=== PATIENT | male | born 1960 | race Caucasian/White ===

== ENCOUNTER → 2019-02-09 08:45 | Outpatient (CLI) | payer MEDICAID, SELFPAY ==
--- NOTE | 2019-02-09 08:47 | CA_ITS ---
APPROVED REPORT EXAM: Limited 2D and color flow Echocardiogram [place] Surfacer: Zaira Johnson RDCS Ht: 5 ft 6 in Wt: 221lbs BSA: 2.09 BP: 102/68 mmHg Indications: EDEMA SEVERE COPD SOA ETOH ABUSE HTN M-Mode Dimensions RVDd 2.10 cm (0.9-2.6) LVDd 5.60 cm (3.5-5.7) LVDs 4.50 cm (3.5-5.7) IVSd 0.70 cm (0.6-1.1) PWd 0.80 cm (0.6-1.1) EF (Teich) 40.00% FS 19.60% EDV (Teich) 154.00 mL ESV (Teich) 92.40 mL Left Ventricle Left atrium is mildly enlarged, left ventricle is normal size, mild concentric left ventricular hypertrophy, visually estimated ejection fraction 55% with no regional wall motion abnormality. Right Ventricle Right-sided chambers are not well visualized. Aortic Valve Aortic valve is poorly visualized. Mitral Valve Mitral valve is minimally thickened, there is no mitral stenosis, there is mild mitral regurgitation. Tricuspid Valve Tricuspid valve is poorly visualized. There is mild tricuspid regurgitation. Pulmonic Valve Pulmonic valve is poorly visualized. Great Vessels Aortic root is normal size. Pericardium No significant pericardial effusion noted. Conclusion 1. Technically difficult and limited study performed. 2. Normal left ventricular systolic function, visually estimated ejection fraction 55% with no regional wall motion abnormality, diastolic parameters are inconclusive. 3. Mild mitral and tricuspid regurgitation 4. No significant pericardial effusion noted. Electronically signed by : Lonny Messina, 02/12/2019 16:36:44
== END ==
PROVIDERS: PCP Emergency Medicine; Visit Provider Emergency Medicine
DX: R60.9 Edema, unspecified (principal); I50.9 Heart failure, unspecified
CPT/HCPCS: 93308

== ENCOUNTER → 2019-02-22 14:01 | Outpatient (CLI) | payer MEDICAID, SELFPAY ==
[2019-02-22 16:42] LABS: Basophils # 0.1 K/mm3 (0-0.2); Basophils % 0.6 % (0.1-2.0); Eosinophils % 0.1 % (0.1-12.0); Hematocrit 39.1 % (42.0-52.0); Lymphocytes # 1.4 K/mm3 (0.7-4.5); Lymphocytes % 11.5 % (10-50); Mean Corpuscular HGB Conc 30.7 g/dL (31.8-35.4); Mean Corpuscular Hemoglobin 27.8 pg (27.0-31.2); Mean Corpuscular Volume 90.6 fl (80-94); Mean Platelet Volume 7.6 fl (7.4-10.4); Monocytes # 0.9 K/mm3 (0.1-1.0); Monocytes % 7.1 % (1.7-9.3); Neutrophils # 9.8 K/mm3 (1.8-7.8); Neutrophils % 80.8 % (37.0-80.0); Platelet Count 659 K/mm3 (142-424); Red Blood Count 4.31 M/mm3 (4.60-6.20); White Blood Count 12.2 K/mm3 (4.8-10.8)
[2019-02-22 16:47] LABS: Anion Gap 11.9 mEq/L (5-15); Blood Urea Nitrogen 18 mg/dL (7-18); Carbon Dioxide 31 mmol/L (21.0-32.0); Chloride 94 mmol/L (98-107); Creatinine,Serum 0.88 mg/dL (0.70-1.30); Estimated Glomerular Filt Rate 88 ml/min (>60); GFR (African American) 107 ML/MIN (>60); Glucose 138 mg/dL (74-106); Potassium 4.9 mmoL/L (3.5-5.1); Sodium 132 mmol/L (136-145)
== END ==
PROVIDERS: Visit Provider Nurse Practitioner Family
DX: E78.5 Hyperlipidemia, unspecified (principal); I10 Essential (primary) hypertension; F10.10 Alcohol abuse, uncomplicated; I27.20 Pulmonary hypertension, unspecified; I50.33 Acute on chronic diastolic (congestive) heart failure; I50.9 Heart failure, unspecified; I51.9 Heart disease, unspecified; R01.1 Cardiac murmur, unspecified; R06.00 Dyspnea, unspecified; R07.9 Chest pain, unspecified; R60.9 Edema, unspecified; R93.1 Abnormal findings on diagnostic imaging of heart and coronary circulation
CPT/HCPCS: 36415; 80048; 83880; 85025

== ENCOUNTER 2019-03-18 11:00 | Outpatient (RCR) | payer MEDICAID, SELFPAY ==
--- NOTE | 2019-02-09 08:34 | HMH.PTOPWND ---
Rehab Outpt Wound Evaluation Rehab OP Wound Evaluation Start: 02/09/19 08:01 Freq: Status: Active Protocol: Document 02/09/19 08:28 VALE (Rec: 02/09/19 08:34 PHORNE [id number]) Electronically Signed By Samson Holloway, PT 02/09/19 08:28 Subjective/History History History Pt is 59 yowm who presents with several yr hx of B LE edema, gradually increasing and worse in the right LE. He reports no pain at rest, only tenderness to palpation in B gaitor area. He does report some numbness/tingling in the legs at times. He has difficulty ambulating due to COPD and emphysema and was recently diagnosed with CHF. He reports further hx of anxiety, HTN, HL, and APPY. He reports having an appt with cardiology today also. Lymphedema Eval Classification of Lymphedema Secondary Lymphedema Yes Stemmer's sign Stemmer's Sign yes Stage of Lymphedema Lymphedema stages Stage I (Pitting edema, reduces w/ elevation, no fibrosis) Skin Changes Dry Skin Yes Taut, Shiny Skin Yes Hyperkeratosis Yes Redness Yes Brittle Uneven Nails Yes Discoloration of Skin Yes Other Changes Yes Pain Scale Pain Scale (0-10) 0 Affected Extremities Areas Affected by Lymphedema/Edema Abdomen,Right Lower Extremity, Left Lower Extremity Manual Lymphatic Drainage Treatment Area MLD Treatment Area Abdomen,Right Lower Extremity, Left Lower Extremity Wound Problems/Impairments Impairments Problems/Impairmments Palpation Tenderness,Impaired Endurance,Impaired Walking, Impaired Household Care, Impaired Recreational Activities,Increased Edema, Lymphedema Present,Subjective C/O Pain,Impaired Self Care/ Self Management Prognosis Rehab Potential Fair Clinical Impression Consistent with Diagnosis Yes Short Term Goals Number of Weeks 4 Decreased Palpation Tenderness Yes: to min Patient to Understand Lymphedema Yes Treatment and Exercises
--- NOTE | 2019-03-03 08:24 | HMH.RHREAS ---
Rehab Reassessment Rehab OP Re-assessment Start: 03/03/19 08:18 Freq: Status: Active Protocol: Document 03/03/19 08:18 VALE (Rec: 03/03/19 08:23 VALE [id number]) Electronically Signed By Samson Holloway, PT 03/03/19 08:18 Rehab Re-assessment Subjective Subjective Pt reports less c/o tenderness in B LE, but continues to have SOA with exertion and now mildly increaased lightheadedness with position changes. Objective Objective Notes Continues with 3+ pitting edema to B LE, Right > Left. Now S/P cardiac cath with no CAD, but CHF and significant pulmonary HTN. Assessment Progress Assessment Progressing as Expected Assessment Notes Pt treatment was held until cleared by cardiology due to CHF. Now S/P heart cath with clearance for edema control to B LE. Patient goals met none Goals Not Met ST,2,3 LT,2,3,4,5 Revised Goals none Plan Plan Continue per initial POC Frequency of Therapy 2x/wk Duration of therapy 8 wks Time and Billing Re-Eval Time 15 Re-Eval Billing Units 1 PHYSICIAN CERTIFICATION: I certify the specified therapy services for Tejas Agustinravindrasukhdev PATRICK are required, authorized, and reviewed every 30 days.
== END 2019-03-18 11:05 | disposition home or self-care (01) ==
LOC: PT 11:00
PROVIDERS: Visit Provider Emergency Medicine
DX: R60.0 Localized edema (principal)
CPT/HCPCS: 97140; 97163; 97164

== ENCOUNTER 2019-03-22 12:35 | Inpatient (IN) ==
--- NOTE | 2019-03-22 13:22 | Emergency Department Note ---
ED Disposition Clinical Impression: Pneumonia Disposition: Admitted as Observation Condition on Discharge: Fair Time of Disposition: 16:09 - Critical Care Critical Care Time: No Attestation: On 03/22/19, the high probability of a clinically significant, sudden or life threatening deterioration of the following system(s) required my full and direct attention, intervention and personal management. The time I documented below is in addition to time spent performing reported procedures but includes the following listed in this critical care notation. Medical Decision Making - Medical Records Medical records reviewed: Yes: I reviewed the patient's medical records. - Shola Inquiry Pt receiving controlled substance: No Shola was queried for this patient: No Vital Signs: 03/22/19 12:55 03/22/19 13:29 03/22/19 13:36 Temperature 98.5 F Temperature Source Oral Pulse Rate 93 H Pulse Rate [Left Radial] 79 85 Respiratory Rate 24 Blood Pressure [Right Arm] 132/60 129/68 Blood Pressure Mean [Right Arm] 84 88 Blood Pressure Source [Right Arm] Automatic Cuff Automatic Cuff Blood Pressure Position [Right Arm] Sitting Sitting 02 Sat by Pulse Oximetry 94 L 97 Oxygen Delivery Method Nasal Cannula Room Air Oxygen Flow Rate (LPM) 3 03/22/19 13:39 Temperature Temperature Source Pulse Rate Pulse Rate [Left Radial] 86 Respiratory Rate Blood Pressure [Right Arm] 129/68 Blood Pressure Mean [Right Arm] 88 Blood Pressure Source [Right Arm] Automatic Cuff Blood Pressure Position [Right Arm] Sitting 02 Sat by Pulse Oximetry 96 Oxygen Delivery Method Room Air Oxygen Flow Rate (LPM) - Lab Data Lab results reviewed: Yes: I reviewed the patient's lab results. Lab Results 03/22/19 13:05: WBC 9.1, RBC 4.63, Hgb 13.0 L, Hct 41.0 L, MCV 88.6, MCH 28.1, MCHC 31.7 L, RDW 14.6, Plt Count 568 H, MPV 7.1 L, Neut % (Auto) 86.9 H, Lymph % (Auto) 8.5 L, [place] % (Auto) 3.9, Eos % (Auto) 0.4, Baso % (Auto) 0.2, Neut # (Auto) 7.9 H, Lymph # (Auto) 0.8, [place] # (Auto) 0.4, Eos # (Auto) 0.0, Baso # (Auto) 0.0, Total Counted 100, Neutrophils % (Manual) 86 H, Lymphocytes % (Manual) 10, Monocytes % (Manual) 4, Platelet Estimate Moderate increase, Hypochromasia 1+ 03/22/19 13:05: Sodium 129 L, Potassium 4.0, Chloride 92 L, Carbon Dioxide 32, Anion Gap 9.0, BUN 21 H, Creatinine 0.98, Estimated Creat Clear 108, Estimated GFR 78, Est GFR ( Amer) 94, Glucose 198 H, Calcium 9.3, Total Bilirubin 0.3, AST 9 L, ALT 41, Alkaline Phosphatase 55, Total Protein 7.3, Albumin 3.7, Globulin 3.6 H, Albumin/Globulin Ratio 1.0 L 03/22/19 13:05: Lactate 2.2 H 03/22/19 13:25: Specimen Source Right radial, O2 % 32, ABG pH 7.44, ABG pCO2 46.3 H, ABG pO2 71.4 L, ABG HCO3 30.7 H, ABG Total CO2 32.2 H, ABG O2 Saturation 94, ABG Base Excess 6.6 H, Kiel Test acceptable Result diagrams: 03/22/19 13:05 03/22/19 13:05 Orders (Tests/Meds): ED MEDICATIONS Generic Name Dose Route Start Last Admin Trade Name Freq PRN Reason Stop Dose Admin Azithromycin 500 mg/ Sodium 250 mls @ 250 mls/hr 03/22/19 16:15 Chloride IV 04/05/19 16:14 Q24H STANISLAV Protocol Ceftriaxone Sodium 2 gm/ 50 mls @ 100 mls/hr 03/22/19 16:15 Sodium Chloride IV 04/05/19 16:14 Q24H STANISLAV Protocol Sodium Chloride 3 ml 03/22/19 14:10 Sodium Chloride 3% 15ml [facility] 04/21/19 14:09 ONCE PRN INDUCE SPUTUM COLLECTION Discontinued Medications Generic Name Dose Route Start Last Admin Trade Name Freq PRN Reason Stop Dose Admin Albuterol/Ipratropium 3 ml 03/22/19 13:01 03/22/19 13:20 Duoneb 3ml [facility] 03/22/19 13:02 3 ml ONCE ONE Administration Methylprednisolone Sodium Succinate 125 mg 03/22/19 13:01 03/22/19 13:10 Solu-Medrol 125mg/2ml Vial IV 03/22/19 13:02 125 mg ONCE ONE Administration ORDERS Category Date Time Status Blood Culture Stat Micro 03/22/19 13:01 Received Sputum Culture & Gram Stain Stat Micro 03/22/19 13:25 Results General Adult HPI - General Chief complaint: Shortness of Breath/Dyspnea Stated complaint: SOA Time Seen by Provider: 03/22/19 13:06 Mode of Arrival: Wheelchair Source of Information: Patient Limitations: No Limitations Description of Symptoms (Recalled from ER Triage Doc. by RN): c/o increased SOA, states that he was dx with PNA but he is having more trouble breathing. - History of Present Illness HPI narrative: diagnosed pneumonia , treate doutpatient . Doing much worse, relates to marked increased shortness of breath - Related Data Home Medications Medication Instructions Recorded Confirmed albuterol sulfate 2.5 mg/3 mL 1.25 mg INHALATION QID PRN 02/03/19 03/22/19 (0.083 %) solution for nebulization fluticasone propionate 220 1 puff INHALATION BID 02/03/19 03/22/19 mcg/actuation HFA aerosol inhaler magnesium 400 mg (as magnesium 400 mg PO DAILY 02/03/19 03/22/19 oxide) capsule mometasone-formoterol HFA 100 2 puff INHALATION BID 02/03/19 03/22/19 mcg-5 mcg/actuation aerosol inhaler montelukast 10 mg tablet 10 mg PO QPM 02/03/19 03/22/19 pravastatin 20 mg tablet 20 mg PO DAILY 02/03/19 03/22/19 tamsulosin 0.4 mg capsule 0.4 mg PO DAILY 02/03/19 03/22/19 spironolactone 50 mg tablet 100 mg PO DAILY tab 02/22/19 03/22/19 torsemide 20 mg tablet 50 mg PO DAILY tab 02/22/19 03/22/19 Buspirone HCl [Buspirone 15 mg 15 mg PO BID 03/18/19 03/22/19 Tablets] Metoprolol Tartrate 50 mg PO BID 03/18/19 03/22/19 dilTIAZem HCl [Cartia Xt] 240 mg PO BID 03/18/19 03/19/19 predniSONE [Prednisone 5mg 5 mg PO DAILY 03/18/19 03/22/19 Tab] Ipratropium/Albuterol Sulfate 3 ml IH Q6H 03/22/19 03/22/19 [Duoneb 3mL neb] Previous Rx's Medication Instructions Recorded albuterol sulfate HFA 90 1 puff INHALATION Q6H PRN #8.5 g 02/22/19 mcg/actuation aerosol inhaler Allergies Allergy/AdvReac Type Severity Reaction Status Date / Time shellfish derived Allergy Mild Verified 03/19/19 09:47 Opioids-Meperidine and Allergy itch Verified 03/19/19 09:47 Related [facility] History - Hepatitis A Screen Drug use history?: No High risk sexual behaviors?: No History of sexually transmitted infection?: No Currently employed?: No Childcare worker?: No Do you have indoor plumbing?: Yes Do you have electricity?: Yes Attestation statement:: This patient has been screened for Hepatitis A risk factors. I have reviewed the patient's past medical history: Yes Medical History: Reports:: Anxiety, Congestive Heart Failure, Chronic Obstr uctive Pulmonary Disease (COPD), Hyperlipidemia, Hypertension Denies:: Cancer, Diabetes Mellitus Type 1, Diabetes Mellitus Type 2, Internal Pacemaker, MRSA, Seizures Laterality Cases: Right: Arthroscopy Shoulder Other Surgeries: Yes: Appendectomy, Cardiac Catheterization. No: Pacemaker Amputation: No Fractures: No Comment: broken rt foot,fingers - Social History Smoking Status: Former smoker #Yrs smoked (if former smoker): 44 Alcohol Intake: current Alcohol Intake Frequency:: 3 or more drinks per day Substance Use Type: denies use Occupational Status: disabled Housing: house Household Members: family - Psychiatric History Pschychiatric History:: Reports:: Anxiety Family Hx:: Asthma, Heart Attack, Hypertension, Coronary Artery Disease, Cancer Comment: Mother- of [id number]@47 ROS Obtained: Yes All systems reviewed & no additional complaints - Constitutional Constitutional: Reports chills - Cardiovascular Cardiovascular: Denies chest pain, Denies chest pain with activity, Reports dyspnea, Reports dyspnea on exertion - Respiratory Respiratory: Yes chest congestion, Yes cough, Yes dyspnea, Yes wheezing - Gastrointestinal Gastrointestingal: Denies: abdominal pain - Musculoskeletal Musculoskeletal: Denies abnormal gait, Denies back pain, Denies limited range of motion - Integumentary/Breasts Skin/Breast: Denies dry skin, Denies redness - Neurologic Neurologic: Reports system reviewed and no additional complaints, except as docu, Denies seizure-like activity, Denies syncope - Hematologic/Lymphatic Henatologic/Lymphatic: Denies easy bleeding Physical Exam - General General appearance: alert, in distress, other (unkempt) - Head Head exam: atraumatic, normocephalic, normal inspection - Eye Eye exam: Present: normal appearance, PERRL, EOMI - ENT ENT exam: Present: normal exam, normal oropharynx, mucous membranes moist, TM's normal bilaterally, normal external ear exam - Neck Neck exam: Present: normal inspection, full ROM, trachea midline. Absent: meningismus, lymphadenopathy - Respiratory Respiratory exam: Present: respiratory distress, wheezes. Absent: normal lung sounds bilaterally - Cardiovascular Cardiovascular exam: Present: regular rate, normal rhythm. Absent: JVD - Abdominal Exam Abdominal exam: Present: soft, normal bowel sounds. Absent: distention, te nderness, guarding - Extremities Exam Extremities exam: Present: normal inspection, full ROM, normal capillary refill. Absent: calf tenderness - Back Exam Back exam: Present: normal inspection. Absent: tenderness - Neurological Exam Neurological exam: Present: alert, oriented X3 - Psychiatric Psychiatric exam: Present: normal affect - Skin Skin exam: Present: warm, dry, intact, normal color - Lymphatic Lymphatic Findings: no adenopathy
[2019-03-22 13:26] LABS: Basophils % 0.2 % (0.1-2.0); Eosinophils % 0.4 % (0.1-12.0); Lymphocytes # 0.8 K/mm3 (0.7-4.5); Lymphocytes % 8.5 % (10-50); Mean Corpuscular HGB Conc 31.7 g/dL (31.8-35.4); Mean Corpuscular Volume 88.6 fl (80-94); Mean Platelet Volume 7.1 fl (7.4-10.4); Monocytes # 0.4 K/mm3 (0.1-1.0); Monocytes % 3.9 % (1.7-9.3); Neutrophils # 7.9 K/mm3 (1.8-7.8); Neutrophils % 86.9 % (37.0-80.0); Platelet Count 568 K/mm3 (142-424); Red Blood Count 4.63 M/mm3 (4.60-6.20); Red Cell Distribution Width 14.6 % (11.5-17.5); White Blood Count 9.1 K/mm3 (4.8-10.8)
[2019-03-22 13:27] LABS: Albumin Level 3.7 gm/dL (3.4-5.0); Bilirubin,Total 0.3 mg/dL (0.2-1.0); Calcium 9.3 mg/dL (8.5-10.1); Globulin 3.6 gm/dl (1.3-3.2); Total Protein,Serum 7.3 gm/dL (6.4-8.2)
[2019-03-22 13:41] LABS: Hypochromasia 1+; Lymphocytes % 10 % (10-50); Monocytes % 4 % (2-9); Neutrophils % 86 % (42-76); Total Cells Counted 100
[2019-03-22 14:50] LABS: ABG Base Excess 6.6 mmol/L (-2.4-2.3); ABG HCO3 30.7 mmhg (22.0-26.0); ABG Oxygen Saturation 94 % (90-100); ABG PCO2 46.3 mmhg (35.0-45.0); ABG PH 7.44 mmol/L (7.35-7.45); ABG PO2 71.4 mmhg (80-100); ABG TCO2 32.2 mmhg (23-27)
[2019-03-22 14:51] LABS: Allen's Test acceptable; Oxygen 32 %
[2019-03-23 03:06] LABS: Amphetamine/Metha Screen,Urine Negative ng/mL (<1000); Barbiturates Screen,Urine Negative ng/mL (<200); Benzodiazepines Screen,Urine Negative ng/mL (<200); Cannabinoid Screen,Urine Negative ng/mL (<50); Cocaine Screen,Urine Negative ng/mL (<300); Methadone Screen,Urine Negative ng/mL (<300); Opiate Screen,Urine Negative ng/mL (<300); Phencyclidine Screen,Urine Negative ng/mL (<25)
[2019-03-23 06:22] LABS: Basophils % 0.1 % (0.1-2.0); Eosinophils % 0.1 % (0.1-12.0); Hematocrit 40.4 % (42.0-52.0); Hemoglobin 12.6 g/dL (14.1-18.0); Lymphocytes # 0.8 K/mm3 (0.7-4.5); Lymphocytes % 8.6 % (10-50); Mean Corpuscular HGB Conc 31.1 g/dL (31.8-35.4); Mean Corpuscular Volume 89.8 fl (80-94); Mean Platelet Volume 7.1 fl (7.4-10.4); Monocytes # 0.3 K/mm3 (0.1-1.0); Monocytes % 3.6 % (1.7-9.3); Neutrophils # 8.1 K/mm3 (1.8-7.8); Neutrophils % 87.6 % (37.0-80.0); Platelet Count 558 K/mm3 (142-424); Red Blood Count 4.49 M/mm3 (4.60-6.20); Red Cell Distribution Width 14.6 % (11.5-17.5); White Blood Count 9.2 K/mm3 (4.8-10.8)
[2019-03-23 06:32] LABS: Anion Gap 8.6 mEq/L (5-15); Calcium 9.4 mg/dL (8.5-10.1)
--- NOTE | 2019-03-23 07:17 | Pharmacy Consult Notes ---
[facility] Pharmacy VTE Monitoring - Patient Demographics Admission date: 03/22/19 Report Date: 03/23/19 Time: 07:09 Allergies/Adverse Reactions: Patient Allergies shellfish derived Allergy (Mild, Verified 03/19/19 09:47) Opioids-Meperidine and Related Allergy (Verified 03/19/19 09:47) itch Height: 1.68 m Weight: 97.522 kg Patient Problems: Current Active Problems Pneumonia (Acute) - VTE Risk Labs: VTE Related Lab Results Hgb 12.6 g/dL (14.1-18.0) L 03/23/19 05:58 Hct 40.4 % (42.0-52.0) L 03/23/19 05:58 Plt Count 558 K/mm3 (142-424) H 03/23/19 05:58 BUN 21 mg/dL (7-18) H 03/22/19 13:05 Creatinine 0.98 mg/dL (0.70-1.30) 03/22/19 13:05 Estimated Creat Clear 108 mL/min (50-200) 03/22/19 13:05 Was VTE Risk Assessment Performed: No Clinical Trial Participant: No - Prophylaxis VTE Prophylaxis Ordered?: Yes Types of VTE Prophylaxis: TEDS Knee High
[2019-03-23 08:06] LABS: Lymphocytes % 5 % (10-50); Monocytes % 4 % (2-9); Neutrophils % 87 % (42-76); Total Cells Counted 100
--- NOTE | 2019-03-23 08:33 | History & Physical Report ---
*Admission Date: 03/22/19 *Chief complaint: Shortness of breath *History of present illness: 59 YOM admits he was at home w/ increasing SOA. He is on 3 L per nasal cannula at home. He was seen 03/18 at [facility] ED for increasing shortness of breath and cough for several days. He was prescribed levofloxacin, prednisone and albuterol nebulizers. He followed up next day with his primary care, he was instructed to continue to continue current treatment and chest x- ray 03/22. On 03/22 he had a cardiology appointment and instead of cardiology he went to [facility] ED for increasing shortness of breath, cough, and reporting he was feeling worse over the weekend. In the ED he received azithromycin, Solu-Medrol IV, and IV fluids. Blood and sputum cultures were obtained awaiting results. He is currently sitting up on side of the bed with oxygen on 3 L in no visible respiratory distress. He is complaining of constipation for the past 3 to 4 days, denies abdominal pain or change in diet 03/22 CXR: IMPRESSION: Improving right lower lobe pneumonia with persistent right effusion/pleural thickening Dictated by: Dr. Byers, and the 02/12/2019 ECHO: Conclusion 1. Technically difficult and limited study performed. 2. Normal left ventricular systolic function, visually estimated ejection fraction 55% with no regional wall motion abnormality, diastolic parameters are inconclusive. 3. Mild mitral and tricuspid regurgitation 4. No significant pericardial effusion noted. Electronically signed by : Lonny Messina [facility] History Medical History: Reports:: Anxiety, Congestive Heart Failure, Chronic Obstructive Pulmonary Disease (COPD), Hyperlipidemia, Hypertension Denies:: Cancer, Diabetes Mellitus Type 1, Diabetes Mellitus Type 2, Internal Pacemaker, MRSA, Seizures *Have you ever received a pneumonia vaccine?: Yes *Have you received a flu vaccine this season?: No Laterality Cases: Right: Arthroscopy Shoulder Other Surgeries: Yes: Appendectomy, Cardiac Catheterization. No: Pacemaker Amputation: No Fractures: No - *Social History Smoking Status: Former smoker #Yrs smoked (if former smoker): 44 Alcohol Intake: current Alcohol Intake Frequency:: 3 or more drinks per day Substance Use Type: denies use *Occupational Status:: disabled Housing: house Household Members: family *Travel in the last 8 weeks: None - Psychiatric History Pschychiatric History:: Reports:: Anxiety Family Hx:: Asthma, Heart Attack, Hypertension, Coronary Artery Disease, Cancer Review of Systems - Review of Systems Review of systems:: pertinent systems reviewed and negative unless documented below - Constitutional Reports weakness, Denies headache(s) - Eyes Denies blurry vision, Denies discharge - ENT Denies dizziness, Denies throat swelling - *Cardiovascular Reports shortness of breath, Denies chest pain, Denies radiating jaw, neck or arm pain - *Respiratory Reports chest congestion, Reports cough, Reports shortness of breath - *Gastrointestinal Denies abdominal pain, Denies difficulty swallowing - *Genitourinary Denies difficulty urinating, Denies frequent nighttime urination - *Musculoskeletal Denies abnormal walking, Denies joint pain - Integumentary/Breasts Denies yellowing of the skin, Denies lesions - *Neurologic Denies abnormal walking, Denies seizure-like activity, Denies fainting - Psychiatric Denies anxiety, Denies confusion - Endocrine Denies cold intolerance, Denies rapid, pounding, or irregular heartbeat - Hematologic/Lymphatic Denies easy bleeding, Denies easy bruising - Allergic/Immunologic Reports wheezing, Denies lip swelling, Denies throat swelling Meds Home Medications Medication Instructions Recorded Confirmed Type albuterol sulfate 2.5 mg/3 mL 1.25 mg INHALATION QID PRN 02/03/19 03/22/19 History (0.083 %) solution for nebulization fluticasone propionate 220 1 puff INHALATION BID 02/03/19 03/22/19 History mcg/actuation HFA aerosol inhaler magnesium 400 mg (as magnesium 400 mg PO DAILY 02/03/19 03/22/19 History oxide) capsule mometasone-formoterol HFA 100 2 puff INHALATION BID 02/03/19 03/22/19 History mcg-5 mcg/actuation aerosol inhaler montelukast 10 mg tablet 10 mg PO HS 02/03/19 03/23/19 History pravastatin 20 mg tablet 20 mg PO HS 02/03/19 03/22/19 History tamsulosin 0.4 mg capsule 0.4 mg PO DAILY 02/03/19 03/22/19 History albuterol sulfate HFA 90 1 puff INHALATION Q6H PRN #8.5 g 02/22/19 03/22/19 Rx mcg/actuation aerosol inhaler spironolactone 50 mg tablet 100 mg PO DAILY tab 02/22/19 03/22/19 History torsemide 20 mg tablet 50 mg PO DAILY tab 02/22/19 03/22/19 History Buspirone HCl [Buspirone 15 mg 15 mg PO BID 03/18/19 03/22/19 History Tablets] Metoprolol Tartrate 50 mg PO BID 03/18/19 03/22/19 History dilTIAZem HCl [Cartia Xt] 240 mg PO BID 03/18/19 03/22/19 History predniSONE [Prednisone 5mg 5 mg PO DAILY 03/18/19 03/22/19 History Tab] Ipratropium/Albuterol Sulfate 3 ml IH Q6H 03/22/19 03/22/19 History [Duoneb 3mL neb] Allergies Allergy/AdvReac Type Severity Reaction Status Date / Time shellfish derived Allergy Mild Verified 03/19/19 09:47 Opioids-Meperidine and Allergy itch Verified 03/19/19 09:47 Related Exam Vital signs and Labs for Last 24 Hours: Temp Pulse Resp BP Pulse Ox 98.7 F 93 H 18 169/92 H 93 L 03/23/19 08:00 03/23/19 08:00 03/23/19 08:00 03/23/19 08:00 03/23/19 08:00 Laboratory Results - last 24 hr 03/22/19 13:05: WBC 9.1, RBC 4.63, Hgb 13.0 L, Hct 41.0 L, MCV 88.6, MCH 28.1, MCHC 31.7 L, RDW 14.6, Plt Count 568 H, MPV 7.1 L, Neut % (Auto) 86.9 H, Lymph % (Auto) 8.5 L, [place] % (Auto) 3.9, Eos % (Auto) 0.4, Baso % (Auto) 0.2, Neut # (Auto) 7.9 H, Lymph # (Auto) 0.8, [place] # (Auto) 0.4, Eos # (Auto) 0.0, Baso # (Auto) 0.0, Total Counted 100, Neutrophils % (Manual) 86 H, Lymphocytes % (Manual) 10, Monocytes % (Manual) 4, Platelet Estimate Moderate increase, Hypochromasia 1+ 03/22/19 13:05: Sodium 129 L, Potassium 4.0, Chloride 92 L, Carbon Dioxide 32, Anion Gap 9.0, BUN 21 H, Creatinine 0.98, Estimated Creat Clear 108, Estimated GFR 78, Est GFR ( Amer) 94, Glucose 198 H, Calcium 9.3, Total Bilirubin 0.3, AST 9 L, ALT 41, Alkaline Phosphatase 55, Total Protein 7.3, Albumin 3.7, Globulin 3.6 H, Albumin/Globulin Ratio 1.0 L 03/22/19 13:05: Lactate 2.2 H 03/22/19 13:25: Specimen Source Right radial, O2 % 32, ABG pH 7.44, ABG pCO2 46.3 H, ABG pO2 71.4 L, ABG HCO3 30.7 H, ABG Total CO2 32.2 H, ABG O2 Saturation 94, ABG Base Excess 6.6 H, Kiel Test acceptable 03/22/19 17:55: Lactate 1.8 03/23/19 02:10: Urine Opiates Screen Negative, Urine Methadone Screen Negative, Ur Barbituates Screen Negative, Ur Phencyclidine Scrn Negative, Ur Amphetamines Screen Negative, U Benzodiazepines Scrn Negative, Urine Cocaine Screen Negative, U Marijuana (THC) Screen Negative 03/23/19 05:58: WBC 9.2, RBC 4.49 L, Hgb 12.6 L, Hct 40.4 L, MCV 89.8, MCH 28.0, MCHC 31.1 L, RDW 14.6, Plt Count 558 H, MPV 7.1 L, Neut % (Auto) 87.6 H, Lymph % (Auto) 8.6 L, [place] % (Auto) 3.6, Eos % (Auto) 0.1, Baso % (Auto) 0.1, Neut # (Auto) 8.1 H, Lymph # (Auto) 0.8, [place] # (Auto) 0.3, Eos # (Auto) 0.0, Baso # (Auto) 0.0, Total Counted 100, Neutrophils % (Manual) 87 H, Lymphocytes % (Manual) 5 L, Atypical Lymphs % 4.0, Monocytes % (Manual) 4, Platelet Estimate Moderate increase 03/23/19 05:58: Sodium 135 L, Potassium 4.6, Chloride 96 L, Carbon Dioxide 35 H, Anion Gap 8.6, BUN 18, Creatinine 0.76 D, Estimated Creat Clear 107, Estimated GFR 104, Est GFR ( Amer) 126 D, Glucose 172 H, Calcium 9.4 I & O for Last 24 hours: Intake & Output 03/20/19 03/21/19 03/22/19 03/23/19 23:59 23:59 23:59 23:59 Intake Total 370 / 370 360 / 360 Output Total 450 / 450 Balance 370 / 370 -90 / -90 Weight 216 lb 8 oz 215 lb Microbiology Reports for the Last 24 Hours: Microbiology 03/22/19 13:25 Sputum - Expectorated Sputum Gram Stain - Final 03/22/19 13:25 Sputum - Expectorated Sputum Sputum Culture - Preliminary - Constitutional no acute distress - *Routine HEENT Exam Head: Present: normocephalic, atraumatic Eye: Present: EOMI, PERRL, normal accommodation ENT: Present: mucous membranes dry - *Routine Neck Exam Present: supple, trachea midline. Absent: JVD, tracheal deviation - *Routine Respiratory Exam Present: wheezes, crackles - *Routine Cardiovascular Exam Present: RRR - *Routine Abdominal Exam Present: soft, normoactive bowel sounds. Absent: tenderness, firm - *Routine Extremities Exam Present: full ROM. Absent: cyanosis, calf tenderness - Routine Back/Spine/Pelvis Exam Back/Spine: Present: full ROM. Absent: CVA tenderness - *Routine Skin Exam Present: intact. Absent: cyanosis, wounds - *Routine Neurological Exam Present: alert, oriented X3, CN II-XII intact. Absent: altered mental status - Routine Psychiatric Exam Present: normal affect, normal thought process. Absent: visual hallucinations, tactile hallucinations Assessment and Plan (1) Thrombocytosis Current visit: Yes Status: Acute Category: Medical Code(s): D47.3 - Essential (hemorrhagic) thrombocythemia (2) Pneumonia Current visit: Yes Status: Acute Qualifiers: Category: Medical Code(s): J18.9 - Pneumonia, unspecified organism (3) Acute exacerbation of chronic obstructive airways disease Current visit: No Status: Acute Category: Medical Code(s): J44.1 - Chronic obstructive pulmonary disease with (acute) exacerbation - Assessment and plan all Dx Assessment and Plan for all problems:: Rounded with Dr. Durham, all orders per Dr. Durham 1. Cardiology consult 2. PT/OT eval 3. Will order MiraLAX
--- NOTE | 2019-03-23 09:38 | Consult Report ---
History of Present Illness Consult date: 03/23/19 Requesting physician: Josué Durham Consult reason: shortness of breath Chief complaint: SOA Additional Medical History:: 1. Oxygen requiring COPD A. Previous tobacco user, discontinued 8 months ago 2. Hypertensive heart disease with congestive heart failure A. Echo, 01/2019, 1. Technically difficult and limited study performed. 2. Normal left ventricular systolic function, visually estimated ejection fraction 55% with no regional wall motion abnormality, diastolic parameters are inconclusive. 3. Mild mitral and tricuspid regurgitation 4. No significant pericardial effusion noted 3. Normal coronary arteries, left heart catheterization, 01/2019 A. Right and left heart catheterization, 01/2019,ANGIOGRAPHIC RESULTS The left main artery Normal The left anterior descending artery Normal The circumflex artery Normal The right coronary artery Dominant normal The [facility] ventriculogram reveals Hyperdynamic 75% The left ventricular end-diastolic pressure Severely elevated at 40 to 45 mmHg Right atrial pressure 30 mmHg Pulmonary artery pressure 65/50 mmHg Pulmonary artery occlusion pressure 40 mmHg Right atrial saturation 73% Pulmonary artery saturation 70% IMPRESSION Normal coronary arteries Hyperdynamic ventricle consistent with diastolic dysfunction and/or hypertensive heart disease Severely elevated left-sided filling pressures consistent with severe diastolic dysfunction Severe pulmonary hypertension secondary to left heart failure/left heart severe diastolic dysfunction PLAN 1. Treat diastolic dysfunction with loop diuretics and fluid restriction plus salt restriction 2. Weight loss 3. Cardiac rehabilitation 4. Risk factor modification 4. Recurrent pneumonia, 02/2019 History of present illness: 59 YOM admits he was at home w/ increasing SOA. He is on 3 L per nasal cannula at home. He was seen 03/18 at [facility] ED for increasing sh ortness of breath and cough for several days. He was prescribed levofloxacin, prednisone and albuterol nebulizers. He followed up next day with his primary care, he was instructed to continue to continue current treatment and chest x- ray 03/22. On 03/22 he had a cardiology appointment and instead of going to cardiology, he went to [facility] ED for increasing shortness of breath, cough, and reporting he was feeling worse over the weekend. In the ED he received azithromycin, Solu-Medrol IV, and IV fluids. Blood and sputum cultures were obtained awaiting results. He is currently sitting up on side of the bed with oxygen on 3 L in no visible respiratory distress. He is complaining of constipation for the past 3 to 4 days, denies abdominal pain or change in diet The above per Abdulkadir Montejo APRN for Dr. Durham Patient denies any chest pain but does note some chest tightness with breathing. Initial troponin is normal. Recent cardiac catheterization showed normal cor onary arteries. Patient does have significant diastolic dysfunction for which a combination of beta-scott and diltiazem therapy have been prescribed along with diuretics. [facility] History Medical History: Reports:: Anxiety, Congestive Heart Failure, Chronic Obstructive Pulmonary Disease (COPD), Hyperlipidemia, Hypertension Denies:: Cancer, Diabetes Mellitus Type 1, Diabetes Mellitus Type 2, Internal Pacemaker, MRSA, Seizures *Have you ever received a pneumonia vaccine?: Yes *Have you received a flu vaccine this season?: No Laterality Cases: Right: Arthroscopy Shoulder Other Surgeries: Yes: Appendectomy, Cardiac Catheterization. No: Pacemaker Amputation: No Fractures: No - *Social History Smoking Status: Former smoker #Yrs smoked (if former smoker): 44 Alcohol Intake: current Alcohol Intake Frequency:: 3 or more drinks per day Substance Use Type: denies use *Occupational Status:: disabled Housing: house Household Members: family *Travel in the last 8 weeks: None - Psychiatric History Pschychiatric History:: Reports:: Anxiety Family Hx:: Asthma, Heart Attack, Hypertension, Coronary Artery Disease, Cancer Meds Home Medications Medication Instructions Recorded Confirmed Type albuterol sulfate 2.5 mg/3 mL 1.25 mg INHALATION QID PRN 02/03/19 03/22/19 History (0.083 %) solution for nebulization fluticasone propionate 220 1 puff INHALATION BID 02/03/19 03/22/19 History mcg/actuation HFA aerosol inhaler magnesium 400 mg (as magnesium 400 mg PO DAILY 02/03/19 03/22/19 History oxide) capsule mometasone-formoterol HFA 100 2 puff INHALATION BID 02/03/19 03/22/19 History mcg-5 mcg/actuation aerosol inhaler montelukast 10 mg tablet 10 mg PO HS 02/03/19 03/23/19 History pravastatin 20 mg tablet 20 mg PO HS 02/03/19 03/22/19 History tamsulosin 0.4 mg capsule 0.4 mg PO DAILY 02/03/19 03/22/19 History albuterol sulfate HFA 90 1 puff INHALATION Q6H PRN #8.5 g 02/22/19 03/22/19 Rx mcg/actuation aerosol inhaler spironolactone 50 mg tablet 100 mg PO DAILY tab 02/22/19 03/22/19 History torsemide 20 mg tablet 50 mg PO DAILY tab 02/22/19 03/22/19 History Buspirone HCl [Buspirone 15 mg 15 mg PO BID 03/18/19 03/22/19 History Tablets] Metoprolol Tartrate 50 mg PO BID 03/18/19 03/22/19 History dilTIAZem HCl [Cartia Xt] 240 mg PO BID 03/18/19 03/22/19 History predniSONE [Prednisone 5mg 5 mg PO DAILY 03/18/19 03/22/19 History Tab] Ipratropium/Albuterol Sulfate 3 ml IH Q6H 03/22/19 03/22/19 History [Duoneb 3mL neb] Allergies Allergy/AdvReac Type Severity Reaction Status Date / Time shellfish derived Allergy Mild Verified 03/19/19 09:47 Opioids-Meperidine and Allergy itch Verified 03/19/19 09:47 Related Review of Systems - *Cardiovascular Reports shortness of breath, Reports shortness of breath with activity, Reports leg swelling, Denies chest pain - *Respiratory Reports change in phlegm color, Reports chest congestion, Reports cough, Reports shortness of breath, Reports shortness of breath with activity - *Gastrointestinal Reports constipation, Reports nausea, Denies abdominal pain - *Genitourinary Denies blood in urine - *Musculoskeletal Reports joint pain, Reports back pain - *Neurologic Reports weakness, Denies abnormal walking, Denies confusion, Denies dizziness, Denies headache(s), Denies seizure-like activity, Denies fainting Exam Vital signs and Labs for Last 24 Hours: Temp Pulse Resp BP Pulse Ox 98.7 F 93 H 18 169/92 H 93 L 03/23/19 08:00 03/23/19 08:00 03/23/19 08:00 03/23/19 08:00 03/23/19 08:00 Laboratory Results - last 24 hr 03/22/19 13:05: WBC 9.1, RBC 4.63, Hgb 13.0 L, Hct 41.0 L, MCV 88.6, MCH 28.1, MCHC 31.7 L, RDW 14.6, Plt Count 568 H, MPV 7.1 L, Neut % (Auto) 86.9 H, Lymph % (Auto) 8.5 L, Barber % (Auto) 3.9, Eos % (Auto) 0.4, Baso % (Auto) 0.2, Neut # (Auto) 7.9 H, Lymph # (Auto) 0.8, Barber # (Auto) 0.4, Eos # (Auto) 0.0, Baso # (Auto) 0.0, Total Counted 100, Neutrophils % (Manual) 86 H, Lymphocytes % (Manual) 10, Monocytes % (Manual) 4, Platelet Estimate Moderate increase, Hypochromasia 1+ 03/22/19 13:05: Sodium 129 L, Potassium 4.0, Chloride 92 L, Carbon Dioxide 32, Anion Gap 9.0, BUN 21 H, Creatinine 0.98, Estimated Creat Clear 108, Estimated GFR 78, Est GFR ( Amer) 94, Glucose 198 H, Calcium 9.3, Total Bilirubin 0.3, AST 9 L, ALT 41, Alkaline Phosphatase 55, Total Protein 7.3, Albumin 3.7, Globulin 3.6 H, Albumin/Globulin Ratio 1.0 L 03/22/19 13:05: Lactate 2.2 H 03/22/19 13:25: Specimen Source Right radial, O2 % 32, ABG pH 7.44, ABG pCO2 46.3 H, ABG pO2 71.4 L, ABG HCO3 30.7 H, ABG Total CO2 32.2 H, ABG O2 Saturation 94, ABG Base Excess 6.6 H, Kiel Test acceptable 03/22/19 17:55: Lactate 1.8 03/23/19 02:10: Urine Opiates Screen Negative, Urine Methadone Screen Negative, Ur Barbituates Screen Negative, Ur Phencyclidine Scrn Negative, Ur Amphetamines Screen Negative, U Benzodiazepines Scrn Negative, Urine Cocaine Screen Negative, U Marijuana (THC) Screen Negative 03/23/19 05:58: WBC 9.2, RBC 4.49 L, Hgb 12.6 L, Hct 40.4 L, MCV 89.8, MCH 28.0, MCHC 31.1 L, RDW 14.6, Plt Count 558 H, MPV 7.1 L, Neut % (Auto) 87.6 H, Lymph % (Auto) 8.6 L, Barber % (Auto) 3.6, Eos % (Auto) 0.1, Baso % (Auto) 0.1, Neut # (Auto) 8.1 H, Lymph # (Auto) 0.8, Barber # (Auto) 0.3, Eos # (Auto) 0.0, Baso # (Auto) 0.0, Total Counted 100, Neutrophils % (Manual) 87 H, Lymphocytes % (Manual) 5 L, Atypical Lymphs % 4.0, Monocytes % (Manual) 4, Platelet Estimate Moderate increase 03/23/19 05:58: Sodium 135 L, Potassium 4.6, Chloride 96 L, Carbon Dioxide 35 H, Anion Gap 8.6, BUN 18, Creatinine 0.76 D, Estimated Creat Clear 107, Estimated GFR 104, Est GFR ( Amer) 126 D, Glucose 172 H, Calcium 9.4 I & O for Last 24 hours: Intake & Output 03/20/19 03/21/19 03/22/19 03/23/19 11:59 11:59 11:59 11:59 Intake Total 730 / 730 Output Total 450 / 450 Balance 280 / 280 Weight 215 lb Microbiology Reports for the Last 24 Hours: Microbiology 03/22/19 13:25 Sputum - Expectorated Sputum Gram Stain - Final 03/22/19 13:25 Sputum - Expectorated Sputum Sputum Culture - Preliminary - *Routine HEENT Exam Head: Present: normocephalic Eye: Present: EOMI, PERRL ENT: Present: mucous membranes moist - *Routine Neck Exam Present: supple. Absent: JVD, carotid bruit - *Routine Respiratory Exam Present: rhonchi, wheezes, diminished air movement. Absent: accessory muscle use, rales - *Routine Cardiovascular Exam Present: RRR. Absent: murmur, gallop, rubs - *Routine Abdominal Exam Present: soft. Absent: tenderness, distended, guarding - *Routine Extremities Exam Present: edema. Absent: calf tenderness - *Routine Neurological Exam Present: alert, oriented X3, moving all extremities Assessment and Plan (1) Pneumonia Current visit: Yes Status: Acute Qualifiers: Category: Medical Code(s): J18.9 - Pneumonia, unspecified organism (2) Thrombocytosis Current visit: Yes Status: Acute Category: Medical Code(s): D47.3 - Essential (hemorrhagic) thrombocythemia (3) Acute exacerbation of chronic obstructive airways disease Current visit: No Status: Acute Category: Medical Code(s): J44.1 - Chronic obstructive pulmonary disease with (acute) exacerbation (4) Hypertensive heart disease Current visit: Yes Status: Acute Category: Medical Code(s): I11.9 - Hypertensive heart disease without heart failure (5) COPD (chronic obstructive pulmonary disease) Current visit: No Status: Acute Category: Medical Code(s): J44.9 - Chronic obstructive pulmonary disease, unspecified (6) Anemia Current visit: Yes Status: Acute Category: Medical Code(s): D64.9 - Anemia, unspecified (7) Hyponatremia Current visit: Yes Status: Acute Category: Medical Code(s): E87.1 - Hypo- osmolality and hyponatremia - Assessment and plan all Dx Assessment and Plan for all problems:: 1. Pneumonia, treatment per Dr. Durham 2. Diastolic dysfunction/hypertensive heart disease, continue combination of beta-scott, calcium channel scott and diuretic therapy as ordered. 3. Lower extremity edema felt to be a combination of side effect from a calcium channel scott therapy and chronic lymphedema. Continue lymphedema clinic treatment. We will switch to verapamil to see if edema improves slightly. As pulmonary status improves with less wheezing, consideration for increasing beta- scott therapy and reducing calcium channel scott therapy could be considered. 4. Anemia, stable 5. Thrombocytosis, likely secondary to history of tobacco use and COPD
--- NOTE | 2019-03-23 17:10 | Consult Report ---
*Admission Date: 03/22/19 *Reason for consult:: anxiety *History of present illness: I was consulted on patient by the senior case manager. Patient was interviewed at bedside. He was sitting up in his chair; alone in his room. He had an appointment with me 2 weeks ago; but he cancelled this and did not show up. He states that he is here for breathing issues. -he had pneumonia -he is an alcoholic -he states that he has been drinking for a long time -but he did cut back to 4 beers per day States all this started 1 year ago; he hurt his should pushing over a tree in his yard. He states that they did a shoulder replacement and everything has gone down hill since then. He states that he even quit smoking and cut back on drinking and things are still getting worse. HE states that up until about a year ago he was drinking 1/5 of whiskey and a case of beer per day. -states he started drinking like this in 1978; stopped in 1993 -he states that he just liked drinking like this; it was time to constitution party -stopped drinking cause he got Started back drinking 8 years later when he got ; she was cheating on him. Went back to drinking like he was before he got . He states that he did go on a 3 day binge drinking bailey and took all the pills he could get. He states that he was not trying to kill himself back then; but he felt sorry for himself. He wanted his ex to feel sorry for him too; that maybe she would feel bad and come back. But it did not work like this. -he states that this was in 2001 -he has been a heavy drinker most of his life States that this morning the lab people were in the room trying to draw ABGs on him. There were 3 people in the room; 2 holding down his arm and 1 trying to draw the blood. He states that he had a full panic moment. They had to stop; he told them to get the 'fuck off of me'. And that he had to put the fan on him to calm himself down. he states that the air blowing on him helps him breathe better. States that typically he does not want to leave his house; he will go out only to go to the doctor or the hospital. -he will go to the store; but will sit in the car -his niece does his shopping for him -he has to have his fan on at all times when at home -has to be blowing in his face -helps him breathe -if he is short of breath then he can't get enough oxygen and his anxiety goes up -this makes the breathing worse too He states that he used to be an outgoing person and he wants to get back to that person. EXAM MSE: Examination reveals patient to have no apparent serious mental status abnorma lities. Patient is normal in appearance with age appropriate dress and grooming and appears to be stated age. Neither depression nor mood elevation is evident. Speech is normal in rate, volume, and articulation and language skills are intact. Patient convincingly denies suicidal and self injurious ideas or intentions. Homicidal or assaultive ideas or intentions are also denied. Hallucinations and delusions are denied and behavior is generally appropriate. Associations are intact, thinking is basically logical and thought content is appropriate. There are no signs of cognitive difficulty, based on vocabulary and fund of knowledge. Memory is intact for recent and remote events and the patient is oriented to time, place, and person. There are no apparent signs of anxiety. A normal attention span is in evidence and patient exhibits no signs of hyperactivity. Insight and judgment appear intact. RECOMMENDATIONS: 1. Start on Zoloft 50mg daily for anxiety and panic. He states that he is willing to start medications for this. 2. He was also set up with an outpatient appointment with myself for medication management. TIME IN: 1250 TIME OUT:1335 [facility] History Medical History: Reports:: Anxiety, Congestive Heart Failure, Chronic Obs tructive Pulmonary Disease (COPD), Hyperlipidemia, Hypertension Denies:: Cancer, Diabetes Mellitus Type 1, Diabetes Mellitus Type 2, Internal Pacemaker, MRSA, Seizures *Have you ever received a pneumonia vaccine?: Yes *Have you received a flu vaccine this season?: No Laterality Cases: Right: Arthroscopy Shoulder Other Surgeries: Yes: Appendectomy, Cardiac Catheterization. No: Pacemaker Amputation: No Fractures: No - *Social History Smoking Status: Former smoker #Yrs smoked (if former smoker): 44 Alcohol Intake: current Alcohol Intake Frequency:: 3 or more drinks per day Substance Use Type: denies use *Occupational Status:: disabled Housing: house Household Members: family *Travel in the last 8 weeks: None - Psychiatric History Pschychiatric History:: Reports:: Anxiety Family Hx:: Asthma, Heart Attack, Hypertension, Coronary Artery Disease, Cancer Review of Systems - *Neurologic Reports weakness, Denies abnormal walking, Denies confusion, Denies dizziness, Denies headache(s), Denies seizure-like activity, Denies fainting Meds Home Medications Medication Instructions Recorded Confirmed Type albuterol sulfate 2.5 mg/3 mL 1.25 mg INHALATION QID PRN 02/03/19 03/22/19 History (0.083 %) solution for nebulization fluticasone propionate 220 1 puff INHALATION BID 02/03/19 03/22/19 History mcg/actuation HFA aerosol inhaler magnesium 400 mg (as magnesium 400 mg PO DAILY 02/03/19 03/22/19 History oxide) capsule mometasone-formoterol HFA 100 2 puff INHALATION BID 02/03/19 03/22/19 History mcg-5 mcg/actuation aerosol inhaler montelukast 10 mg tablet 10 mg PO HS 02/03/19 03/23/19 History pravastatin 20 mg tablet 20 mg PO HS 02/03/19 03/22/19 History tamsulosin 0.4 mg capsule 0.4 mg PO DAILY 02/03/19 03/22/19 History albuterol sulfate HFA 90 1 puff INHALATION Q6H PRN #8.5 g 02/22/19 03/22/19 Rx mcg/actuation aerosol inhaler spironolactone 50 mg tablet 100 mg PO DAILY tab 02/22/19 03/22/19 History torsemide 20 mg tablet 50 mg PO DAILY tab 02/22/19 03/22/19 History Buspirone HCl [Buspirone 15 mg 15 mg PO BID 03/18/19 03/22/19 History Tablets] Metoprolol Tartrate 50 mg PO BID 03/18/19 03/22/19 History dilTIAZem HCl [Cartia Xt] 240 mg PO BID 03/18/19 03/22/19 History predniSONE [Prednisone 5mg 5 mg PO DAILY 03/18/19 03/22/19 History Tab] Ipratropium/Albuterol Sulfate 3 ml IH Q6H 03/22/19 03/22/19 History [Duoneb 3mL neb] Allergies Allergy/AdvReac Type Severity Reaction Status Date / Time shellfish derived Allergy Mild Verified 03/19/19 09:47 Opioids-Meperidine and Allergy itch Verified 03/19/19 09:47 Related Exam Vital signs and Labs for Last 24 Hours: Temp Pulse Resp BP Pulse Ox 98.6 F 88 20 163/82 H 96 03/23/19 12:00 03/23/19 13:20 03/23/19 12:00 03/23/19 12:00 03/23/19 12:00 Laboratory Results - last 24 hr 03/22/19 17:55: Lactate 1.8 03/23/19 02:10: Urine Opiates Screen Negative, Urine Methadone Screen Negative, Ur Barbituates Screen Negative, Ur Phencyclidine Scrn Negative, Ur Amphetamines Screen Negative, U Benzodiazepines Scrn Negative, Urine Cocaine Screen Negative, U Marijuana (THC) Screen Negative 03/23/19 05:58: WBC 9.2, RBC 4.49 L, Hgb 12.6 L, Hct 40.4 L, MCV 89.8, MCH 28.0, MCHC 31.1 L, RDW 14.6, Plt Count 558 H, MPV 7.1 L, Neut % (Auto) 87.6 H, Lymph % (Auto) 8.6 L, [place] % (Auto) 3.6, Eos % (Auto) 0.1, Baso % (Auto) 0.1, Neut # (Auto) 8.1 H, Lymph # (Auto) 0.8, [place] # (Auto) 0.3, Eos # (Auto) 0.0, Baso # (Auto) 0.0, Total Counted 100, Neutrophils % (Manual) 87 H, Lymphocytes % (Manual) 5 L, Atypical Lymphs % 4.0, Monocytes % (Manual) 4, Platelet Estimate Moderate increase 03/23/19 05:58: Sodium 135 L, Potassium 4.6, Chloride 96 L, Carbon Dioxide 35 H, Anion Gap 8.6, BUN 18, Creatinine 0.76 D, Estimated Creat Clear 107, Estimated GFR 104, Est GFR ( Amer) 126 D, Glucose 172 H, Calcium 9.4 I & O for Last 24 hours: Intake & Output 03/21/19 03/22/19 03/23/19 03/24/19 11:59 11:59 11:59 11:59 Intake Total 730 / 730 Output Total 1350 / 1350 Balance -620 / -620 Weight 215 lb Microbiology Reports for the Last 24 Hours: Microbiology 03/22/19 13:25 Sputum - Expectorated Sputum Gram Stain - Final 03/22/19 13:25 Sputum - Expectorated Sputum Sputum Culture - Preliminary Internal Medicine - CN: Reslt - Labs CBC & Chem 7: 03/23/19 05:58 03/23/19 05:58 Labs: Short CBC 03/23/19 Range/Units 05:58 WBC 9.2 (4.8-10.8) K/mm3 Hgb 12.6 L (14.1-18.0) g/dL Hct 40.4 L (42.0-52.0) % Plt Count 558 H (142-424) K/mm3 BMP 03/23/19 05:58 Sodium 135 L Potassium 4.6 Chloride 96 L Carbon Dioxide 35 H BUN 18 Creatinine 0.76 D Glucose 172 H Calcium 9.4 - ABG Interpretation ABG results: 03/22/19 13:25 ABG pH 7.44 ABG pCO2 46.3 H ABG pO2 71.4 L ABG HCO3 30.7 H ABG Total CO2 32.2 H ABG O2 Saturation 94 ABG Base Excess 6.6 H Assessment and Plan (1) Pneumonia Current visit: Yes Status: Acute Qualifiers: Category: Medical Code(s): J18.9 - Pneumonia, unspecified organism (2) Thrombocytosis Current visit: Yes Status: Acute Category: Medical Code(s): D47.3 - Essential (hemorrhagic) thrombocythemia (3) Acute exacerbation of chronic obstructive airways disease Current visit: No Status: Acute Category: Medical Code(s): J44.1 - Chronic obstructive pulmonary disease with (acute) exacerbation (4) Hypertensive heart disease Current visit: Yes Status: Acute Category: Medical Code(s): I11.9 - Hypertensive heart disease without heart failure (5) COPD (chronic obstructive pulmonary disease) Current visit: No Status: Acute Category: Medical Code(s): J44.9 - Chronic obstructive pulmonary disease, unspecified (6) Anemia Current visit: Yes Status: Acute Category: Medical Code(s): D64.9 - An emia, unspecified (7) Hyponatremia Current visit: Yes Status: Acute Category: Medical Code(s): E87.1 - Hypo- osmolality and hyponatremia
--- NOTE | 2019-03-24 10:26 | Progress Note ---
Subjective Date: 03/24/19 Time: 10:00 Principal diagnosis: pneumonia Interval history: This is a 59-year-old white male who presented to the emergency department with increasing shortness of breath. The patient was admitted to the hospital and found to have pneumonia. He has been started on antibiotics, steroids and nebulizers. The patient denies any chest pain but states sometimes he does have tightness in his chest with breathing. He states that his shortness of breath is somewhat better. He states that he is still wheezing a lot. He is short more short of breath when he is exerting himself. He is a short of breath at rest as well. He states that resting does improve his shortness of breath but it does not resolve. The patient states that he also has edema in his abdomen and his bilateral lower extremities. He denies any fevers, chills, nausea, vo miting, diarrhea. He does have associated orthopnea with his shortness of breath. The patient did have a cardiac catheterization in January of this year. He does have normal coronary arteries with significant diastolic dysfunction and an LVEDP of 40 to 45 mmHg. The patient needs aggressive diuresis. Exam Vital signs and Labs for Last 24 Hours: Temp Pulse Resp BP Pulse Ox 97.9 F 90 18 160/88 H 96 03/24/19 08:00 03/24/19 09:55 03/24/19 08:00 03/24/19 08:00 03/24/19 09:32 I & O for Last 24 hours: Intake & Output 03/21/19 03/22/19 03/23/19 03/24/19 23:59 23:59 23:59 23:59 Intake Total 370 / 370 1200 / 1200 1967 Output Total 2049 600 / 600 Balance 370 / 370 -850 / -850 1368 / 1368 Weight 216 lb 8 oz 215 lb 217 lb 4 oz Microbiology Reports for the Last 24 Hours: Microbiology 03/22/19 13:25 Sputum - Expectorated Sputum Gram Stain - Final 03/22/19 13:25 Sputum - Expectorated Sputum Sputum Culture - Preliminary - Constitutional no acute distress, obese, chronically ill appearing - *Routine HEENT Exam Head: Present: normocephalic Eye: Present: EOMI, PERRL ENT: Present: mucous membranes moist - *Routine Neck Exam Present: supple, full ROM, normal carotid upstroke. Absent: JVD, carotid bruit, lymphadenopathy - *Routine Respiratory Exam Present: decreased breath sounds, rales, rhonchi, wheezes - *Routine Cardiovascular Exam Present: RRR, Normal S1, Normal S2. Absent: murmur - *Routine Abdominal Exam Present: soft, normoactive bowel sounds, distended. Absent: tenderness - *Routine Extremities Exam Present: full ROM, pulses intact, normal capillary refill. Absent: cyanosis, clubbing, edema - *Routine Skin Exam Present: intact, warm. Absent: erythema, rash - *Routine Neurological Exam Present: alert, oriented X3, CN II-XII intact. Absent: sensory deficit, motor deficit - Detailed Eye Exam Eyelids: Left normal inspection Progress Note: A&P (1) Pneumonia Status: Acute Current Visit: Yes (2) Thrombocytosis Status: Acute Current Visit: Yes (3) Acute exacerbation of chronic obstructive airways disease Status: Acute Current Visit: No (4) Hypertensive heart disease Status: Acute Current Visit: Yes (5) COPD (chronic obstructive pulmonary disease) Status: Acute Current Visit: No (6) Anemia Status: Acute Current Visit: Yes (7) Hyponatremia Status: Acute Current Visit: Yes (8) Shortness of breath Status: Acute Current Visit: Yes (9) Elevated left ventricular end-diastolic pressure (LVEDP) Status: Acute Current Visit: Yes Assessment and Plan for All Diagnoses:: Plan: 1. The patient was admitted to the hospital with worsening shortness of breath and a cough. The patient is being treated for pneumonia with IV antibiotics and steroids. Will defer management of this to his primary care provider. 2. The patient does have severe diastolic dysfunction with a significantly elevated LVEDP. The patient is on beta-blockers and calcium channel blockers. He would benefit from aggressive diuresis. We will increase his torsemide to 100 mg daily for more diuresis. 3. We will get a BMP in the morning to follow his renal function. The patient should be kept a little bit prerenal secondary to his diastolic dysfunction and severely elevated LVEDP. 4. Stop IV fluids per Dr. Reynolds. 5. His blood pressure somewhat elevated this morning but with more diuresis his blood pressure should improve. 6. His LDL goal is less than 100. 7. The patient does have COPD. He is being treated for this by his primary care provider as well. Will defer. 8. Further recommendations will be made pending the patient's response to treatment. Thank you for the opportunity to help participate in the care of this patient.
--- NOTE | 2019-03-24 12:59 | Progress Note ---
Internal Medicine - PN: Subj *Date: 03/25/19 *Time: 05:59 Interval history: doing better- card seeing better and has seen shana wiley Exam Vital signs and Labs for Last 24 Hours: Temp Pulse Resp BP Pulse Ox 98.2 F 89 20 162/86 H 96 03/24/19 11:27 03/24/19 11:27 03/24/19 11:27 03/24/19 11:27 03/24/19 11:27 I & O for Last 24 hours: Intake & Output 03/22/19 03/23/19 03/24/19 03/25/19 11:59 11:59 11:59 11:59 Intake Total 730 / 730 2808 / 2808 552 / 552 Output Total 1350 / 1350 1300 / 1300 Balance -620 / -620 1508 / 1508 552 / 552 Weight 215 lb 217 lb 4.002 oz Microbiology Reports for the Last 24 Hours: Microbiology 03/22/19 13:25 Sputum - Expectorated Sputum Gram Stain - Final 03/22/19 13:25 Sputum - Expectorated Sputum Sputum Culture - Preliminary Gram Negative Rods - Constitutional no acute distress, obese - *Routine HEENT Exam Head: Present: normocephalic Eye: Present: EOMI, PERRL ENT: Present: mucous membranes dry - *Routine Neck Exam Absent: JVD - *Routine Respiratory Exam Present: rhonchi - *Routine Cardiovascular Exam Present: RRR, murmur - *Routine Abdominal Exam Present: soft - *Routine Extremities Exam Absent: Celso's sign - *Routine Skin Exam Present: intact - *Routine Neurological Exam Present: alert, oriented X3, CN II-XII intact - Routine Psychiatric Exam Present: normal affect Assessment and Plan (1) Pneumonia Current visit: Yes Status: Acute Qualifiers: Category: Medical Code(s): J18.9 - Pneumonia, unspecified organism (2) Thrombocytosis Current visit: Yes Status: Acute Category: Medical Code(s): D47.3 - Essential (hemorrhagic) thrombocythemia (3) Acute exacerbation of chronic obstructive airways disease Current visit: No Status: Acute Category: Medical Code(s): J44.1 - Chronic obstructive pulmonary disease with (acute) exacerbation (4) Hypertensive heart disease Current visit: Yes Status: Acute Category: Medical Code(s): I11.9 - Hypertensive heart disease without heart failure (5) COPD (chronic obstructive pulmonary disease) Current visit: No Status: Acute Category: Medical Code(s): J44.9 - Chronic obstructive pulmonary disease, unspecified (6) Anemia Current visit: Yes Status: Acute Category: Medical Code(s): D64.9 - Anemia, unspecified (7) Hyponatremia Current visit: Yes Status: Acute Category: Medical Code(s): E87.1 - Hypo- osmolality and hyponatremia (8) Shortness of breath Current visit: Yes Status: Acute Category: Medical Code(s): R06.02 - Shortness of breath (9) Elevated left ventricular end-diastolic pressure (LVEDP) Current visit: Yes Status: Acute Category: Medical Code(s): R94.30 - Abnormal result of cardiovascular function study, unspecified
[2019-03-25 05:55] LABS: Basophils % 0.1 % (0.1-2.0); Eosinophils # 0.1 K/mm3 (0.0-0.4); Eosinophils % 0.7 % (0.1-12.0); Hematocrit 39.1 % (42.0-52.0); Hemoglobin 11.7 g/dL (14.1-18.0); Lymphocytes # 1.5 K/mm3 (0.7-4.5); Lymphocytes % 11.8 % (10-50); Mean Corpuscular Volume 91.9 fl (80-94); Mean Platelet Volume 7.5 fl (7.4-10.4); Monocytes # 1.4 K/mm3 (0.1-1.0); Monocytes % 10.6 % (1.7-9.3); Neutrophils # 10.1 K/mm3 (1.8-7.8); Neutrophils % 76.8 % (37.0-80.0); Platelet Count 532 K/mm3 (142-424); Red Blood Count 4.25 M/mm3 (4.60-6.20); Red Cell Distribution Width 14.6 % (11.5-17.5); White Blood Count 13.1 K/mm3 (4.8-10.8)
[2019-03-25 06:05] LABS: Anion Gap 2.9 mEq/L (5-15); Calcium 9.3 mg/dL (8.5-10.1)
--- NOTE | 2019-03-25 08:58 | Progress Note ---
Internal Medicine - PN: Subj *Date: 03/25/19 *Time: 08:50 Interval history: Patient sitting up in chair eating breakfast. Exam Vital signs and Labs for Last 24 Hours: Temp Pulse Resp BP Pulse Ox 97.7 F 79 20 107/58 L 91 L 03/25/19 04:00 03/25/19 06:47 03/25/19 04:00 03/25/19 04:00 03/25/19 06:47 Laboratory Results - last 24 hr 03/25/19 05:44: WBC 13.1 H D, RBC 4.25 L, Hgb 11.7 L, Hct 39.1 L, MCV 91.9, MCH 27.6, MCHC 30.0 L, RDW 14.6, Plt Count 532 H, MPV 7.5, Neut % (Auto) 76.8, Lymph % (Auto) 11.8, [place] % (Auto) 10.6 H, Eos % (Auto) 0.7, Baso % (Auto) 0.1, Neut # (Auto) 10.1 H, Lymph # (Auto) 1.5, [place] # (Auto) 1.4 H, Eos # (Auto) 0.1, Baso # (Auto) 0.0 03/25/19 05:44: Sodium 138, Potassium 4.9, Chloride 100, Carbon Dioxide 40 H, Anion Gap 2.9 L, BUN 39 H D, Creatinine 1.21 D, Estimated Creat Clear 88, Estimated GFR 61, Est GFR ( Amer) 74 D, Glucose 116 H, Calcium 9.3 I & O for Last 24 hours: Intake & Output 03/22/19 03/23/19 03/24/19 03/25/19 11:59 11:59 11:59 11:59 Intake Total 730 / 730 2808 / 2808 792 / 792 Output Total 1350 / 1350 1300 / 1300 850 / 850 Balance -620 / -620 1508 / 1508 -58 / -58 Weight 215 lb 217 lb 4.002 oz 214 lb Microbiology Reports for the Last 24 Hours: Microbiology 03/22/19 13:01 Blood Blood Culture - Preliminary NO GROWTH AFTER 48 HOURS 03/22/19 13:01 Blood Blood Culture - Preliminary NO GROWTH AFTER 48 HOURS 03/22/19 13:25 Sputum - Expectorated Sputum Gram Stain - Final 03/22/19 13:25 Sputum - Expectorated Sputum Sputum Culture - Preliminary Gram Negative Rods - Constitutional no acute distress, obese - *Routine HEENT Exam Head: Present: normocephalic Eye: Present: PERRL ENT: Present: mucous membranes moist - *Routine Neck Exam Present: supple. Absent: lymphadenopathy - *Routine Respiratory Exam Present: decreased breath sounds, rhonchi, wheezes - *Routine Cardiovascular Exam Present: RRR - *Routine Abdominal Exam Present: soft, normoactive bowel sounds. Absent: tenderness - *Routine Extremities Exam Present: full ROM, pulses intact. Absent: cyanosis, clubbing, edema - *Routine Skin Exam Present: intact, warm. Absent: rash - *Routine Neurological Exam Present: alert, oriented X3 - Routine Psychiatric Exam Present: normal affect Assessment and Plan (1) Pneumonia Current visit: Yes Status: Acute Qualifiers: Category: Medical Code(s): J18.9 - Pneumonia, unspecified organism (2) Thrombocytosis Current visit: Yes Status: Acute Category: Medical Code(s): D47.3 - Essential (hemorrhagic) thrombocythemia (3) Acute exacerbation of chronic obstructive airways disease Current visit: No Status: Acute Category: Medical Code(s): J44.1 - Chronic obstructive pulmonary disease with (acute) exacerbation (4) Hypertensive heart disease Current visit: Yes Status: Acute Category: Medical Code(s): I11.9 - Hypertensive heart disease without heart failure (5) COPD (chronic obstructive pulmonary disease) Current visit: No Status: Acute Category: Medical Code(s): J44.9 - Chronic obstructive pulmonary disease, unspecified (6) Anemia Current visit: Yes Status: Acute Category: Medical Code(s): D64.9 - Anemia, unspecified (7) Hyponatremia Current visit: Yes Status: Acute Category: Medical Code(s): E87.1 - Hypo- osmolality and hyponatremia (8) Shortness of breath Current visit: Yes Status: Acute Category: Medical Code(s): R06.02 - Shortness of breath (9) Elevated left ventricular end-diastolic pressure (LVEDP) Current visit: Yes Status: Acute Category: Medical Code(s): R94.30 - Abnormal result of cardiovascular function study, unspecified - Assessment and plan all Dx Assessment and Plan for all problems:: Rounded with Dr. Durham all orders per Marva
--- NOTE | 2019-03-25 09:23 | Progress Note ---
Subjective Date: 03/25/19 Time: 09:18 Principal diagnosis: pneumonia Interval history: 59-year-old white male in bedside chair in no acute distress. Breathing has improved. He denies any chest pain, pressure or tightness. Exam Vital signs and Labs for Last 24 Hours: Temp Pulse Resp BP Pulse Ox 97.7 F 79 20 107/58 L 91 L 03/25/19 04:00 03/25/19 06:47 03/25/19 04:00 03/25/19 04:00 03/25/19 06:47 Laboratory Results - last 24 hr 03/25/19 05:44: WBC 13.1 H D, RBC 4.25 L, Hgb 11.7 L, Hct 39.1 L, MCV 91.9, MCH 27.6, MCHC 30.0 L, RDW 14.6, Plt Count 532 H, MPV 7.5, Neut % (Auto) 76.8, Lymph % (Auto) 11.8, Amelia % (Auto) 10.6 H, Eos % (Auto) 0.7, Baso % (Auto) 0.1, Neut # (Auto) 10.1 H, Lymph # (Auto) 1.5, Amelia # (Auto) 1.4 H, Eos # (Auto) 0.1, Baso # (Auto) 0.0 03/25/19 05:44: Sodium 138, Potassium 4.9, Chloride 100, Carbon Dioxide 40 H, Anion Gap 2.9 L, BUN 39 H D, Creatinine 1.21 D, Estimated Creat Clear 88, Estimated GFR 61, Est GFR ( Amer) 74 D, Glucose 116 H, Calcium 9.3 I & O for Last 24 hours: Intake & Output 03/22/19 03/23/19 03/24/19 03/25/19 11:59 11:59 11:59 11:59 Intake Total 730 / 730 2808 / 2808 792 / 792 Output Total 1350 / 1350 1300 / 1300 850 / 850 Balance -620 / -620 1508 / 1508 -58 / -58 Weight 215 lb 217 lb 4.002 oz 214 lb Microbiology Reports for the Last 24 Hours: Microbiology 03/22/19 13:01 Blood Blood Culture - Preliminary NO GROWTH AFTER 48 HOURS 03/22/19 13:01 Blood Blood Culture - Preliminary NO GROWTH AFTER 48 HOURS 03/22/19 13:25 Sputum - Expectorated Sputum Gram Stain - Final 03/22/19 13:25 Sputum - Expectorated Sputum Sputum Culture - Preliminary Gram Negative Rods - *Routine HEENT Exam Head: Present: normocephalic Eye: Present: EOMI, PERRL ENT: Present: mucous membranes moist - *Routine Respiratory Exam Present: decreased breath sounds, rhonchi. Absent: accessory muscle use, rales, wheezes - *Routine Cardiovascular Exam Present: RRR. Absent: murmur, gallop, rubs - *Routine Neurological Exam Present: alert, oriented X3, moving all extremities Progress Note: A&P (1) Pneumonia Status: Acute Current Visit: Yes (2) Thrombocytosis Status: Acute Current Visit: Yes (3) Acute exacerbation of chronic obstructive airways disease Status: Acute Current Visit: No (4) Hypertensive heart disease Status: Acute Current Visit: Yes (5) COPD (chronic obstructive pulmonary disease) Status: Acute Current Visit: No (6) Anemia Status: Acute Current Visit: Yes (7) Hyponatremia Status: Acute Current Visit: Yes (8) Shortness of breath Status: Acute Current Visit: Yes (9) Elevated left ventricular end-diastolic pressure (LVEDP) Status: Acute Current Visit: Yes Assessment and Plan for All Diagnoses:: 1. Diastolic congestive heart failure, diuretics increased with increased urine output yesterday. 2. Continue CECILIA and BB. 3. Pneumonia, treatment per Dr. Durham
[2019-03-26 07:07] LABS: Basophils % 0.1 % (0.1-2.0); Eosinophils % 0.1 % (0.1-12.0); Hematocrit 39.1 % (42.0-52.0); Hemoglobin 11.9 g/dL (14.1-18.0); Lymphocytes # 0.5 K/mm3 (0.7-4.5); Lymphocytes % 4.4 % (10-50); Mean Corpuscular HGB Conc 30.3 g/dL (31.8-35.4); Mean Corpuscular Volume 91.9 fl (80-94); Mean Platelet Volume 7.1 fl (7.4-10.4); Monocytes # 0.2 K/mm3 (0.1-1.0); Monocytes % 1.6 % (1.7-9.3); Neutrophils # 10.2 K/mm3 (1.8-7.8); Neutrophils % 93.8 % (37.0-80.0); Platelet Count 510 K/mm3 (142-424); Red Blood Count 4.26 M/mm3 (4.60-6.20); Red Cell Distribution Width 14.7 % (11.5-17.5); White Blood Count 10.8 K/mm3 (4.8-10.8)
[2019-03-26 07:33] LABS: Anion Gap 6.7 mEq/L (5-15); Calcium 9.4 mg/dL (8.5-10.1)
--- NOTE | 2019-03-26 08:58 | Progress Note ---
Subjective Date: 03/26/19 Time: 08:56 Principal diagnosis: pneumonia Interval history: 59-year-old white male sitting in bedside chair in no acute distress. Still with complaint of shortness of breath. Denies any chest pain, pressure or tightness. Hypotensive episode yesterday responded quickly to IV fluids. Exam Vital signs and Labs for Last 24 Hours: Temp Pulse Resp BP Pulse Ox 97.8 F 117 H 22 134/70 96 03/26/19 08:00 03/26/19 08:00 03/26/19 08:00 03/26/19 08:00 03/26/19 08:00 Laboratory Results - last 24 hr 03/26/19 06:22: WBC 10.8, RBC 4.26 L, Hgb 11.9 L, Hct 39.1 L, MCV 91.9, MCH 27.9, MCHC 30.3 L, RDW 14.7, Plt Count 510 H, MPV 7.1 L, Neut % (Auto) 93.8 H, Lymph % (Auto) 4.4 L, [place]hing % (Auto) 1.6 L, Eos % (Auto) 0.1, Baso % (Auto) 0.1, Neut # (Auto) 10.2 H, Lymph # (Auto) 0.5 L, Pershing # (Auto) 0.2, Eos # (Auto) 0.0, Baso # (Auto) 0.0 03/26/19 06:22: Sodium 133 L, Potassium 4.7, Chloride 94 L, Carbon Dioxide 37 H, Anion Gap 6.7, BUN 23 H D, Creatinine 0.66 L D, Estimated Creat Clear 107, Estimated GFR 123, Est GFR ( Amer) 148 D, Glucose 132 H, Calcium 9.4 I & O for Last 24 hours: Intake & Output 03/23/19 03/24/19 03/25/19 03/26/19 11:59 11:59 11:59 11:59 Intake Total 730 / 730 2808 / 2808 792 / 792 960 / 960 Output Total 1350 / 1350 1300 / 1300 1600 / 1600 1600 / 1600 Balance -620 / -620 1508 / 1508 -808 / -808 -640 / -640 Weight 215 lb 217 lb 4.002 oz 214 lb 214 lb 0.008 oz Microbiology Reports for the Last 24 Hours: Microbiology 03/22/19 13:25 Sputum - Expectorated Sputum Gram Stain - Final 03/22/19 13:25 Sputum - Expectorated Sputum Sputum Culture - Preliminary Stenotrophomonas maltophilia - *Routine Respiratory Exam Present: decreased breath sounds, rhonchi, wheezes. Absent: accessory muscle use, rales - *Routine Cardiovascular Exam Present: RRR. Absent: murmur, gallop, rubs - *Routine Extremities Exam Absent: edema, calf tenderness - *Routine Neurological Exam Present: alert, oriented X3, moving all extremities Progress Note: A&P (1) Pneumonia Status: Acute Current Visit: Yes (2) Thrombocytosis Status: Acute Current Visit: Yes (3) Acute exacerbation of chronic obstructive airways disease Status: Acute Current Visit: No (4) Hypertensive heart disease Status: Acute Current Visit: Yes (5) COPD (chronic obstructive pulmonary disease) Status: Acute Current Visit: No (6) Anemia Status: Acute Current Visit: Yes (7) Hyponatremia Status: Acute Current Visit: Yes (8) Shortness of breath Status: Acute Current Visit: Yes (9) Elevated left ventricular end-diastolic pressure (LVEDP) Status: Acute Current Visit: Yes Assessment and Plan for All Diagnoses:: 1. Okay to discharge home from cardiology standpoint 2. Home medication recommendations: Metoprolol 50 mg twice daily, torsemide 100 mg daily, spironolactone 100 mg daily, verapamil 180 twice daily and pravastatin 20 mg daily. 3. Follow-up in our office in 2 weeks.
[2019-03-26 09:42] LABS: Lymphocytes % 7 % (10-50); Neutrophils % 93 % (42-76); Total Cells Counted 100
[2019-03-26 09:43] LABS: Hypochromasia 1+; Stomatocytes 1+
--- NOTE | 2019-03-26 13:17 | Discharge Summary ---
General - General Admission date:: 03/22/19 Discharge date: 03/26/19 HPI HPI: 59 YOM admits he was at home w/ increasing SOA. He is on 3 L per nasal cannula at home. He was seen 03/18 at [facility] ED for increasing shortness of breath and cough for several days. He was prescribed levofloxacin, prednisone and albuterol nebulizers. He followed up next day with his primary care, he was instructed to continue to continue current treatment and chest x- ray 03/22. On 03/22 he had a cardiology appointment and instead of cardiology he went to [facility] ED for increasing shortness of breath, cough, and reporting he was feeling worse over the weekend. In the ED he received azithromycin, Solu-Medrol IV, and IV fluids. Blood and sputum cultures were obtained awaiting results. He is currently sitting up on side of the bed with oxygen on 3 L in no visible respiratory distress. He is complaining of constipation for the past 3 to 4 days, denies abdominal pain or change in diet 03/22 CXR: IMPRESSION: Improving right lower lobe pneumonia with persistent right effusion/pleural thickening Dictated by: Dr. Byers, and the 02/12/2019 ECHO: Conclusion 1. Technically difficult and limited study performed. 2. Normal left ventricular systolic function, visually estimated ejection fraction 55% with no regional wall motion abnormality, diastolic parameters are inconclusive. 3. Mild mitral and tricuspid regurgitation 4. No significant pericardial effusion noted. Electronically signed by : Lonny Messina, Hospital Course Hospital Course: pt with slow but steady improvement in the hosp with iv abx and pul treatments - he has gram neg strenotroph omonas in sputum and has diastolic dysfunction and was seen by card and had depression and alcohol misuse and withdrawl - he was seen by card Oxygen requiring COPD A. Previous tobacco user, discontinued 8 months ago 2. Hypertensive heart disease with congestive heart failure A. Echo, 01/2019, 1. Technically difficult and limited study performed. 2. Normal left ventricular systolic function, visually estimated ejection fraction 55% with no regional wall motion abnormality, diastolic parameters are inconclusive. 3. Mild mitral and tricuspid regurgitation 4. No significant pericardial effusion noted 3. Normal coronary arteries, left heart catheterization, 01/2019 A. Right and left heart catheterization, 01/2019,ANGIOGRAPHIC RESULTS The left main artery Normal The left anterior descending artery Normal The circumflex artery Normal The right coronary artery Dominant normal The MERCADO ventriculogram reveals Hyperdynamic 75% The left ventricular end-diastolic pressure Severely elevated at 40 to 45 mmHg Right atrial pressure 30 mmHg Pulmonary artery pressure 65/50 mmHg Pulmonary artery occlusion pressure 40 mmHg Right atrial saturation 73% Pulmonary artery saturation 70% IMPRESSION Normal coronary arteries Hyperdynamic ventricle consistent with diastolic dysfunction and/or hypertensive heart disease Severely elevated left-sided filling pressures consistent with severe diastolic dysfunction Severe pulmonary hypertension secondary to left heart failure/left heart severe diastolic dysfunction PLAN 1. Treat diastolic dysfunction with loop diuretics and fluid restriction plus salt restriction 2. Weight loss 3. Cardiac rehabilitation 4. Risk factor modification 1 YOM admits he was at home w/ increasing SOA. He is on 3 L per nasal cannula at home. He was seen 03/18 at [facility] ED for increasing shortness of breath and cough for several days. He was prescribed levofloxacin, prednisone and albuterol nebulizers. He followed up next day with his primary care, he was instructed to continue to continue current treatment and chest x- ray 03/22. On 03/22 he had a cardiology appointment and instead of going to cardiology, he went to [facility] ED for increasing shortness of breath, cough, and reporting he was feeling worse over the weekend. In the ED he received azithromycin, Solu-Medrol IV, and IV fluids. Blood and sputum cultures were obtained awaiting results. He is currently sitting up on side of the bed with oxygen on 3 L in no visible respiratory distress. He is complaining of constipation for the past 3 to 4 days, denies abdominal pain or change in diet The above per Abdulkadir Montejo APRN for Dr. Durham Patient denies any chest pain but does note some chest tightness with breathing. Initial troponin is normal. Recent cardiac catheterization showed normal coronary arteries. Patient does have significant diastolic dysfunction for which a combination of beta-scott and diltiazem therapy have been prescribed along with diuretics. is is a 59-year-old white male who presented to the emergency department with increasing shortness of breath. The patient was admitted to the hospital and found to have pneumonia. He has been started on antibiotics, steroids and nebulizers. The patient denies any chest pain but states sometimes he does have tightness in his chest with breathing. He states that his shortness of breath is somewhat better. He states that he is still wheezing a lot. He is short more short of breath when he is exerting himself. He is a short of breath at rest as well. He states that resting does improve his shortness of breath but it does not resolve. The patient states that he also has edema in his abdomen and his bilateral lower extremities. He denies any fevers, chills, nausea, vomiting, diarrhea. He does have associated orthopnea with his shortness of breath. The patient did have a cardiac catheterization in January of this year. He does have normal coronary arteries with significant diastolic dysfunction and an LVEDP of 40 to 45 mmHg. The patient needs aggressive diuresis. pt has copd and cap - he was tolerating diet and ambulatory with walker and decline to go to [facility] for rehab and discussed detox with pt - he will be followed by pcp and card as op closely Objective Vital signs: Temp Pulse Resp BP Pulse Ox 98.8 F 96 H 19 131/77 88 L 03/26/19 11:52 03/26/19 11:52 03/26/19 11:52 03/26/19 11:52 03/26/19 12:48 no acute distress, obese - *Routine HEENT Exam Head: Present: normocephalic Eye: Present: EOMI, PERRL ENT: Present: mucous membranes dry - *Routine Neck Exam Absent: JVD - *Routine Respiratory Exam Present: decreased breath sounds, rhonchi - *Routine Cardiovascular Exam Present: RRR, murmur, S4 - *Routine Abdominal Exam Present: soft - *Routine Extremities Exam Present: edema. Absent: calf tenderness - *Routine Skin Exam Present: intact - *Routine Neurological Exam Present: alert, oriented X3, CN II-XII intact, tremors - Routine Psychiatric Exam Present: depressed. Absent: good insight Comments: not suicidal Results Labs on day of discharge: Labs from last 24 hours 03/26/19 03/26/19 06:22 06:22 WBC 10.8 RBC 4.26 L Hgb 11.9 L Hct 39.1 L MCV 91.9 MCH 27.9 MCHC 30.3 L RDW 14.7 Plt Count 510 H MPV 7.1 L Neut % (Auto) 93.8 H Lymph % (Auto) 4.4 L [place] % (Auto) 1.6 L Eos % (Auto) 0.1 Baso % (Auto) 0.1 Neut # (Auto) 10.2 H Lymph # (Auto) 0.5 L [place] # (Auto) 0.2 Eos # (Auto) 0.0 Baso # (Auto) 0.0 Total Counted 100 Neutrophils % (Manual) 93 H Lymphocytes % (Manual) 7 L Platelet Estimate Normal Hypochromasia 1+ Stomatocytes 1+ Sodium 133 L Potassium 4.7 Chloride 94 L Carbon Dioxide 37 H Anion Gap 6.7 BUN 23 H D Creatinine 0.66 L D Estimated Creat Clear 107 Estimated GFR 123 Est GFR ( Amer) 148 D Glucose 132 H Calcium 9.4 Preliminary micro results at discharge 03/22/19 13:25 Sputum Culture - Preliminary Sputum - Expectorated Sputum Stenotrophomonas maltophilia 03/22/19 13:01 Blood Culture - Preliminary Blood NO GROWTH AFTER 48 HOURS 03/22/19 13:01 Blood Culture - Preliminary Blood NO GROWTH AFTER 48 HOURS DS: Diagnosis - Discharge Diagnosis (1) Pneumonia Status: Acute (2) Thrombocytosis Status: Acute (3) Acute exacerbation of chronic obstructive airways disease Status: Acute (4) Hypertensive heart disease Status: Acute (5) COPD (chronic obstructive pulmonary disease) Status: Acute (6) Anemia Status: Acute (7) Hyponatremia Status: Acute (8) Shortness of breath Status: Acute (9) Elevated left ventricular end-diastolic pressure (LVEDP) Status: Acute (10) Infection with Stenotrophomonas maltophilia resistant to multiple drugs Status: Acute (11) Obesity Status: Acute (12) Pulmonary HTN Status: Suspected (13) Alcohol abuse Status: Acute Discharge Plan - Patient Discharge Instructions ACTIVITY: Continue current activity DIET: continue same diet Patient Instructions: Pneumonia-Adult, DI for Pneumonia -- Adult - Follow up Plan Follow up with: Josué Durham MD [Primary Care Provider] - Disposition: Home, Self-[facility] Medications: Home Medications Medication Instructions Recorded Confirmed Type fluticasone propionate 220 1 puff INHALATION BID 02/03/19 03/22/19 History mcg/actuation HFA aerosol inhaler magnesium 400 mg (as magnesium 400 mg PO DAILY 02/03/19 03/22/19 History oxide) capsule mometasone-formoterol HFA 100 2 puff INHALATION BID 02/03/19 03/22/19 History mcg-5 mcg/actuation aerosol inhaler montelukast 10 mg tablet 10 mg PO HS 02/03/19 03/23/19 History pravastatin 20 mg tablet 20 mg PO HS 02/03/19 03/22/19 History tamsulosin 0.4 mg capsule 0.4 mg PO DAILY 02/03/19 03/22/19 History albuterol sulfate HFA 90 1 puff INHALATION Q6H PRN #8.5 g 02/22/19 03/22/19 Rx mcg/actuation aerosol inhaler spironolactone 50 mg tablet 100 mg PO DAILY tab 02/22/19 03/22/19 History torsemide 20 mg tablet 50 mg PO DAILY tab 02/22/19 03/22/19 History Buspirone HCl [Buspirone 15 mg 15 mg PO BID 03/18/19 03/22/19 History Tablets] Metoprolol Tartrate 50 mg PO BID 03/18/19 03/22/19 History dilTIAZem HCl [Cartia Xt] 240 mg PO BID 03/18/19 03/22/19 History predniSONE [Prednisone 5mg 5 mg PO DAILY 03/18/19 03/22/19 History Tab] Ipratropium/Albuterol Sulfate 3 ml IH Q4H 03/24/19 03/24/19 History [Duoneb 3mL neb] Sertraline HCl [Zoloft 50mg tablet] 50 mg PO DAILY #90 tab 03/26/19 Rx Torsemide [Demadex 20mg tablet] 100 mg PO DAILY #150 tab 03/26/19 Rx Verapamil HCl [Calan SR 180mg 180 mg PO BID #60 tablet.er 03/26/19 Rx tablet] Prescriptions/Medication Reconciliation: New Verapamil HCl [Calan SR 180mg tablet] 180 mg PO BID #60 tablet.er Torsemide [Demadex 20mg tablet] 100 mg PO DAILY #150 tab Sertraline HCl [Zoloft 50mg tablet] 50 mg PO DAILY #90 tab Metoprolol Tartrate [Lopressor 50mg tablet] 50 mg PO BID tablet Metoprolol Tartrate [Lopressor 50mg tablet] 50 mg PO BID tablet Continued mometasone-formoterol HFA 100 mcg-5 mcg/actuation aerosol inhaler 2 puff INHALATION BID fluticasone propionate 220 mcg/actuation HFA aerosol inhaler 1 puff INHALATION BID montelukast 10 mg tablet 10 mg PO HS pravastatin 20 mg tablet 20 mg PO HS magnesium 400 mg (as magnesium oxide) capsule 400 mg PO DAILY albuterol sulfate HFA 90 mcg/actuation aerosol inhaler 1 puff INHALATION Q6H PRN #8.5 g PRN Reason: shortness of breath or wheezing spironolactone 50 mg tablet 100 mg PO DAILY tab tamsulosin 0.4 mg capsule 0.4 mg PO DAILY Buspirone HCl [Buspirone 15 mg Tablets] 15 mg PO BID Ipratropium/Albuterol Sulfate [Duoneb 3mL neb] 3 ml IH Q4H predniSONE [Prednisone 5mg Tab] 5 mg PO DAILY Metoprolol Tartrate 50 mg PO BID Discontinued torsemide 20 mg tablet 50 mg PO DAILY tab dilTIAZem HCl [Cartia Xt] 240 mg PO BID - Problem Reconciliation Problems Reviewed?: Yes
== END 2019-03-26 15:58 | disposition home or self-care (01) | DRG 190 ==
LOC: 2ND 12:35 → ER 12:35 → 2ND 16:21 → OBSVTOIN 17:11 → 2ND 17:12
PROVIDERS: ADMIT Internal Medicine Adolescent Medicine; ATTEND Emergency Medicine
CPT/HCPCS: 36415; 71020; 71046; 80048; 80053; 80305; 82803; 83605; 85007; 85025; 87040; 87070; 87077; 87186; 87205; 94640; 94761; 96365; 96366; 96375; 97110; 97116; 97140; 97161; 97165; 97535; 99284; J0456

== ENCOUNTER → 2019-03-30 14:44 | Outpatient (CLI) | payer MEDICAID, SELFPAY ==
[2019-03-30 16:24] LABS: Anion Gap 16.6 mEq/L (5-15); Blood Urea Nitrogen 28 mg/dL (7-18); Carbon Dioxide 27 mmol/L (21.0-32.0); Chloride 91 mmol/L (98-107); Creatinine,Serum 1.55 mg/dL (0.70-1.30); Estimated Glomerular Filt Rate 46 ml/min (>60); GFR (African American) 55 ML/MIN (>60); Glucose 126 mg/dL (74-106); Potassium 5.6 mmoL/L (3.5-5.1); Sodium 129 mmol/L (136-145)
== END ==
PROVIDERS: Visit Provider Emergency Medicine
DX: J18.9 Pneumonia, unspecified organism (principal)
CPT/HCPCS: 36415; 80048

== ENCOUNTER → 2019-04-15 14:09 | Outpatient (CLI) | payer MEDICAID, SELFPAY ==
[2019-04-15 14:46] LABS: Anion Gap 10.3 mEq/L (5-15); Blood Urea Nitrogen 20 mg/dL (7-18); Calcium 8.9 mg/dL (8.5-10.1); Carbon Dioxide 30 mmol/L (21.0-32.0); Chloride 100 mmol/L (98-107); Creatinine,Serum 1.05 mg/dL (0.70-1.30); Estimated Glomerular Filt Rate 72 ml/min (>60); GFR (African American) 87 ML/MIN (>60); Glucose 122 mg/dL (74-106); Potassium 4.3 mmoL/L (3.5-5.1); Sodium 136 mmol/L (136-145)
== END ==
PROVIDERS: Visit Provider Nurse Practitioner Family
DX: I27.20 Pulmonary hypertension, unspecified (principal); I11.9 Hypertensive heart disease without heart failure; I51.9 Heart disease, unspecified; I95.9 Hypotension, unspecified; J44.9 Chronic obstructive pulmonary disease, unspecified; R06.00 Dyspnea, unspecified; R53.83 Other fatigue; Z87.891 Personal history of nicotine dependence
CPT/HCPCS: 36415; 80048

== ENCOUNTER → 2019-04-24 11:58 | Outpatient (CLI) | payer MEDICAID, SELFPAY ==
--- NOTE | 2019-04-24 12:02 | XR_ITS ---
PROCEDURE: XR CHEST 2V CLINICAL HISTORY: pneumonia COMPARISON: XR CHEST 2V from 03/18/2019 XR CHEST 2V from 03/22/2019 FINDINGS: The cardiomediastinal silhouette and pulmonary vascularity are within normal limits. There is persistent elevation of the right hemidiaphragm likely due to chronic scarring although a subpulmonic pleural effusion cannot be entirely excluded. There may be minimal atelectasis at the right base otherwise the right upper lung field and left lung montemayor are clear. The total shoulder prosthesis right-side is again noted which is stable.. No acute bony abnormalities. IMPRESSION: Chronic elevation right hemidiaphragm is likely due to chronic scarring though a subpulmonic pleural effusion is a possibility. Dictated by: Dr. Timmy Springer MD 04/24/2019 20:[address] Timmy Springer MD in [place] 04/24/2019 20:14
== END ==
PROVIDERS: PCP Emergency Medicine; Visit Provider Nurse Practitioner Family
DX: J18.9 Pneumonia, unspecified organism (principal)
CPT/HCPCS: 71046

== ENCOUNTER 2019-05-06 11:00 | Outpatient (RCR) | payer MEDICAID, SELFPAY ==
--- NOTE | 2019-04-13 15:04 | HMH.PTOPWND ---
Rehab Outpt Wound Evaluation Rehab OP Wound Evaluation Start: 04/13/19 14:57 Freq: Status: Active Protocol: Document 04/13/19 14:57 VALE (Rec: 04/13/19 15:03 PHORNE [id number]) Electronically Signed By Samson Holloway, PT 04/13/19 14:57 Subjective/History History History Pt is 59 yowm who presents with several yr hx of B LE edema, gradually increasing and worse in the right LE. He was recently hospitalized and had excellent reduction in edema with IV diruetics. His home diruetic dose was recently reduced which has caused some increase in his edema again. He reports no pain at rest, only tenderness to palpation in B gaitor area. He has difficulty ambulating due to COPD and emphysema and was recently diagnosed with CHF. He reports further hx of anxiety, HTN, HL, and APPY. Subjective Subjective Currently no c/o pain or numbness in the legs. Lymphedema Eval Classification of Lymphedema Secondary Lymphedema Yes Stemmer's sign Stemmer's Sign no Stage of Lymphedema Lymphedema stages Stage I (Pitting edema, reduces w/ elevation, no fibrosis) Skin Changes Dry Skin Yes Taut, Shiny Skin Yes Brittle Uneven Nails Yes Discoloration of Skin Yes Other Changes Yes Pain Scale Pain Scale (0-10) 0 Affected Extremities Areas Affected by Lymphedema/Edema Right Lower Extremity,Left Lower Extremity Manual Lymphatic Drainage Treatment Area MLD Treatment Area Right Lower Extremity,Left Lower Extremity Wound Problems/Impairments Impairments Problems/Impairmments Palpation Tenderness,Impaired Endurance,Impaired Walking, Impaired Standing,Impaired Recreational Activities, Increased Edema,Lymphedema Present,Subjective C/O Pain, Impaired Self Care/Self Management Prognosis Rehab Potential Good Clinical Impression Consistent with Diagnosis Yes Short Term Goals [place]be
== END 2019-05-06 11:05 | disposition home or self-care (01) ==
LOC: PT 11:00
PROVIDERS: Visit Provider Emergency Medicine
DX: I89.0 Lymphedema, not elsewhere classified (principal)
CPT/HCPCS: 97110; 97140; 97162; 97760

== ENCOUNTER → 2019-05-06 12:14 | Outpatient (CLI) | payer MEDICAID, SELFPAY ==
[2019-05-06 21:42] LABS: Anion Gap 16.3 mEq/L (5-15); Blood Urea Nitrogen 10 mg/dL (7-18); Calcium 9.2 mg/dL (8.5-10.1); Carbon Dioxide 29 mmol/L (21.0-32.0); Chloride 99 mmol/L (98-107); Creatinine,Serum 1.03 mg/dL (0.70-1.30); Estimated Glomerular Filt Rate 73 ml/min (>60); GFR (African American) 89 ML/MIN (>60); Glucose 132 mg/dL (74-106); Potassium 4.3 mmoL/L (3.5-5.1); Sodium 140 mmol/L (136-145)
== END ==
PROVIDERS: Visit Provider Urology
DX: I11.9 Hypertensive heart disease without heart failure (principal); I50.9 Heart failure, unspecified; J44.9 Chronic obstructive pulmonary disease, unspecified; R06.02 Shortness of breath
CPT/HCPCS: 36415; 80048

== ENCOUNTER → 2019-11-17 16:40 | Outpatient (CLI) | payer MEDICAID, SELFPAY ==
[2019-11-17 17:11] LABS: Chloride 93 mmol/L (98-107); Potassium 4.8 mmoL/L (3.5-5.1); Sodium 133 mmol/L (136-145)
[2019-11-17 17:13] LABS: Blood Urea Nitrogen 16 mg/dl (9-20); Estimated Glomerular Filt Rate 86 ml/min (>60); GFR (African American) 104 ML/MIN (>60)
[2019-11-17 17:14] LABS: Anion Gap 10.8 mEq/L (5-15); Calcium 9.2 mg/dl (8.4-10.2); Carbon Dioxide 34 mmol/L (22.0-30.0); Glucose 111 mg/dl (74-100)
== END ==
PROVIDERS: Visit Provider Emergency Medicine
DX: R60.9 Edema, unspecified (principal)
CPT/HCPCS: 80048

== ENCOUNTER → 2020-01-14 13:00 | Outpatient (CLI) | payer MEDICAID, SELFPAY ==
--- NOTE | 2020-01-14 13:02 | CA_ITS ---
APPROVED REPORT Left Upper Extremity Venous Study for DVT. Rope Machine Setter: Quin Westbrook RVT Indications Upper Extremity Pain: Upper Extremity Edema: Left Shortness of breath C/O KNOT LT LATERAL WRIST X SEVERAL WKS, NKI Risk Factors Cardiac Disease Obesity Vein Imaging IJV (L): Normal phasic flow is seen. Normal flow, augmentation and compression is seen. No evidence of Deep Vein Thrombosis. No abnormalities are demonstrated. SCV (L): Normal phasic flow is seen. Normal flow, augmentation and compression is seen. No evidence of Deep Vein Thrombosis. No abnormalities are demonstrated. Axillary (L): Normal phasic flow is seen. Normal flow, augmentation and compression is seen. No evidence of Deep Vein Thrombosis. No abnormalities are demonstrated. Brachial (L): Normal phasic flow is seen. Normal flow, augmentation and compression is seen. No evidence of Deep Vein Thrombosis. No abnormalities are demonstrated. Basilic (L): Compressible Cephalic (L): Compressible Radial (L): Compressible Ulnar (L): Compressible Findings Study suggests no evidence of DVT of the left upper extremity. Study suggests no evidence of SVT of the left upper extremity. 1.3 cm hypoechoic nodule seen left lateral wrist in area of patient complaint. Conclusion Study suggests no evidence of DVT of the left upper extremity. Study suggests no evidence of SVT of the left upper extremity. 1.3 cm hypoechoic nodule seen left lateral wrist in area of patient complaint. Consider MRI for further evaluation Electronically signed by : Kiel Byers MD 01/14/2020 16:26:40
--- NOTE | 2020-01-14 13:02 | CA_ITS ---
APPROVED REPORT EXAM: Limited 2D Echocardiogram Heating Repair Technician: Quin Westbrook RVT Ht: 5 ft 6 in Wt: 239lbs BSA: 2.16 BP: 142/79 mmHg Indications: SOA, HOME 02,COPD,EDEMA,HTN,HLD,CHF,PHTN VERY LIMITED EXAM R/T OVERLAYING LUNGS AND DECREASED WINDOWS Left Ventricle Technically difficult study because of the patient factors and poor acoustic windows, left atrium is normal size, left ventricle is normal size, mild concentric left ventricular hypertrophy, visually estimated ejection fraction from the obtained views is approximately 55%, endocardial surfaces are poorly visualized, there is no obvious regional wall motion abnormality. Grade 1 diastolic dysfunction seen without tissue Doppler evidence of raise left atrial pressure. Right Ventricle Right atrium and right ventricular normal size and contractility. Aortic Valve Aortic valve is minimally thickened and fibrosed, leaflets are not well visualized. There is no aortic stenosis or aortic insufficiency. Mitral Valve Mitral valve is grossly normal, there is mild mitral regurgitation. Tricuspid Valve Tricuspid valve is grossly normal, there is mild tricuspid regurgitation. Tricuspid regurgitation jet velocity is inadequate for calculation of the right ventricular systolic pressure. Pulmonic Valve Pulmonic valve is poorly visualized. Great Vessels Aortic root is normal size. Pericardium No significant pericardial effusion noted there is anterior echo-free space seen. Conclusion 1. Technically very difficult study because of the patient factors and poor acoustic windows. 2. Normal left ventricular size, mild concentric left ventricular hypertrophy, visually estimated ejection fraction approximately 55% in the obtained views, endocardial surfaces are poorly visualized, there does not appear to be any wall motion abnormality. Grade 1 diastolic dysfunction seen without tissue Doppler evidence of raise left atrial pressure. 3. Mild mitral and tricuspid regurgitation. 4. No significant pericardial effusion noted, there is anterior echo-free space seen. Electronically signed by : Lonny Messina, 01/18/2020 07:17:47
== END ==
PROVIDERS: PCP Emergency Medicine; Visit Provider Nurse Practitioner Family
DX: R22.32 Localized swelling, mass and lump, left upper limb (principal); R60.9 Edema, unspecified
CPT/HCPCS: 93306; 93308; 93971

== ENCOUNTER → 2020-01-14 14:13 | Outpatient (CLI) | payer MEDICAID, SELFPAY ==
[2020-01-14 16:46] LABS: Chloride 98 mmol/L (98-107); Potassium 4.5 mmoL/L (3.5-5.1); Sodium 139 mmol/L (136-145)
[2020-01-14 16:49] LABS: Anion Gap 13.5 mEq/L (5-15); Blood Urea Nitrogen 23 mg/dl (9-20); Carbon Dioxide 32 mmol/L (22.0-30.0); Estimated Glomerular Filt Rate 76 ml/min (>60); GFR (African American) 92 ML/MIN (>60)
[2020-01-14 16:50] LABS: Calcium 9.9 mg/dl (8.4-10.2); Glucose 129 mg/dl (74-100)
[2020-01-14 16:59] LABS: NT Pro Brain Natriuretic Pep. 103 pg/mL (0-125)
== END ==
PROVIDERS: Visit Provider Nurse Practitioner Family
DX: I50.9 Heart failure, unspecified (principal); R06.00 Dyspnea, unspecified; R60.9 Edema, unspecified
CPT/HCPCS: 36415; 80048; 83880

== ENCOUNTER → 2020-02-07 09:49 | Outpatient (CLI) | payer MEDICAID, SELFPAY ==
[2020-02-07 10:59] LABS: Chloride 96 mmol/L (98-107)
[2020-02-07 11:00] LABS: Potassium 5.7 mmoL/L (3.5-5.1); Sodium 140 mmol/L (136-145)
[2020-02-07 11:02] LABS: Blood Urea Nitrogen 19 mg/dl (9-20); Estimated Glomerular Filt Rate 86 ml/min (>60); GFR (African American) 103 ML/MIN (>60)
[2020-02-07 11:03] LABS: Anion Gap 14.7 mEq/L (5-15); Calcium 9.9 mg/dl (8.4-10.2); Carbon Dioxide 35 mmol/L (22.0-30.0); Glucose 142 mg/dl (74-100)
== END ==
PROVIDERS: Visit Provider Urology
DX: I11.9 Hypertensive heart disease without heart failure (principal); E78.5 Hyperlipidemia, unspecified; I27.20 Pulmonary hypertension, unspecified; I50.33 Acute on chronic diastolic (congestive) heart failure; J44.9 Chronic obstructive pulmonary disease, unspecified; R06.00 Dyspnea, unspecified; R60.0 Localized edema
CPT/HCPCS: 36415; 80048

== ENCOUNTER → 2020-02-14 13:19 | Outpatient (CLI) | payer MEDICAID, SELFPAY ==
--- NOTE | 2020-02-14 13:29 | XR_ITS ---
PROCEDURE: XR SHOULDER LT MIN 2V CLINICAL INDICATION: LT shoulder pain COMPARISON: No exams were available for comparison FINDINGS: No fracture or dislocation. No lytic or blastic change. There is normal mineralization. There are moderate osteoarthritic changes involving the AC joint and glenohumeral joint. There is severe subacromial stenosis with superior location of the humeral head. The subacromial space is approximately 3 mm. The lytic or blastic change. There is an old left 6th rib fracture. Other findings:None. 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 This may be seen with rotator cuff disease and may be better evaluated with MRI if clinically warranted. Dictated by: Kiel Byers MD 02/14/2020 13:58 Kiel Byers MD in [place] 02/14/2020 13:58
[2020-02-14 17:01] LABS: Anion Gap 11.2 mEq/L (5-15); Blood Urea Nitrogen 27 mg/dl (9-20); Carbon Dioxide 37 mmol/L (22.0-30.0); Chloride 90 mmol/L (98-107); Estimated Glomerular Filt Rate 61 ml/min (>60); GFR (African American) 74 ML/MIN (>60); Glucose 115 mg/dl (74-100); Potassium 4.2 mmoL/L (3.5-5.1); Sodium 134 mmol/L (136-145)
== END ==
PROVIDERS: Nurse Practitioner Family; PCP Emergency Medicine; Visit Provider Orthopaedic Surgery
DX: M25.512 Pain in left shoulder (principal); I10 Essential (primary) hypertension; I11.9 Hypertensive heart disease without heart failure; I27.20 Pulmonary hypertension, unspecified; I50.32 Chronic diastolic (congestive) heart failure; J44.9 Chronic obstructive pulmonary disease, unspecified; R06.02 Shortness of breath; R42 Dizziness and giddiness; R53.83 Other fatigue; Z87.891 Personal history of nicotine dependence
CPT/HCPCS: 36415; 73030; 80048

== ENCOUNTER → 2020-02-25 10:50 | Outpatient (CLI) | payer MEDICAID, SELFPAY ==
--- NOTE | 2020-02-25 10:50 | MR_ITS ---
PROCEDURE: MR SHOULDER LT WO CON CLINICAL INDICATION: left shoulder pain Pt c/o left shoulder pain with limited ROM. Pt denies recent trauma or injury. COMPARISON: CR XR SHOULDER LT MIN 2V from 02/14/2020 TECHNIQUE: Routine multiplanar multi echo sequences are performed without gadolinium enhancement. FINDINGS: There is complete tear of the supraspinatus and infraspinatus tendons with retraction of the musculotendinous fibers. The teres minor and subscapularis tendons appear intact although there does appear to be some tendinopathy/tendinosis of the subscapularis tendon. There is severe subacromial stenosis with superior location of the humeral head. There is mild acromioclavicular arthropathy. The bicipital tendon is in place. No obvious labral tear. Moderate amount fluid is present in the subcoracoid region consistent with bursitis. There is subdeltoid small amount of fluid. There is a crescentic area of increased T2 signal involving the humeral head with slight increase in T2 signal of the humeral head in the sub articular region. This is consistent with avascular necrosis. IMPRESSION: 1. Complete tear of the supraspinatus and infraspinatus tendons with retraction of the musculotendinous fibers with superior location of the humeral head and severe subacromial stenosis. 2. Avascular necrosis of the humeral head. 3. Subcoracoid bursitis Dictated by: Kiel Byers MD 02/27/2020 10:36 Kiel Byers MD in [place] 02/27/2020 10:36
== END ==
PROVIDERS: PCP Emergency Medicine; Visit Provider Orthopaedic Surgery
DX: M25.512 Pain in left shoulder (principal)
CPT/HCPCS: 73221

== ENCOUNTER → 2020-03-06 11:21 | Outpatient (CLI) | payer MEDICAID, SELFPAY ==
[2020-03-06 12:41] LABS: Anion Gap 13.3 mEq/L (5-15); Blood Urea Nitrogen 17 mg/dl (9-20); Calcium 9.8 mg/dl (8.4-10.2); Carbon Dioxide 38 mmol/L (22.0-30.0); Chloride 84 mmol/L (98-107); Estimated Glomerular Filt Rate 114 ml/min (>60); GFR (African American) 138 ML/MIN (>60); Glucose 154 mg/dl (74-100); Potassium 3.3 mmoL/L (3.5-5.1); Sodium 132 mmol/L (136-145)
--- NOTE | 2020-03-06 13:47 | XR_ITS ---
PROCEDURE: XR CHEST 2V CLINICAL HISTORY: dyspnea COMPARISON: CR XR CHEST 2V from 03/18/2019 CR XR CHEST 2V from 03/22/2019 CR XR CHEST 2V from 04/24/2019 MR MR SHOULDER LT WO CON from 02/25/2020 FINDINGS: There is mild cardiomegaly without failure. Lung volume loss noted on the right with mild shift of the mediastinal structures toward the right. There is blunting of the right CP angle which has increased compared to the previous exam pleural based density noted in the lower hemithorax laterally and posteriorly and in the mid hemithorax laterally. These findings have developed since the previous study along with mild diffuse pleural thickening of the right hemithorax. The left lung is clear. There has been a prior right shoulder replacement. IMPRESSION: Worsening blunting of the CP angle on the right with developing pleural based masses and pleural thickening with right-sided volume loss. Neoplasm is considered. Chest CT with contrast may provide further evaluation. Dictated by: Kiel Byers MD 03/06/2020 14:20 Kiel Byers MD in [place] 03/06/2020 14:20
== END ==
PROVIDERS: PCP Emergency Medicine; Visit Provider Urology
DX: R06.02 Shortness of breath (principal); I50.32 Chronic diastolic (congestive) heart failure; I50.33 Acute on chronic diastolic (congestive) heart failure; R60.0 Localized edema; R60.1 Generalized edema; R06.00 Dyspnea, unspecified
CPT/HCPCS: 36415; 71046; 80048

== ENCOUNTER → 2020-03-14 12:06 | Outpatient (CLI) | payer MEDICAID, SELFPAY ==
[2020-03-14 13:16] LABS: Chloride 93 mmol/L (98-107); Potassium 3.4 mmoL/L (3.5-5.1); Sodium 137 mmol/L (136-145)
[2020-03-14 13:19] LABS: Anion Gap 11.4 mEq/L (5-15); Blood Urea Nitrogen 16 mg/dl (9-20); Calcium 9.1 mg/dl (8.4-10.2); Carbon Dioxide 36 mmol/L (22.0-30.0); Estimated Glomerular Filt Rate 98 ml/min (>60); GFR (African American) 119 ML/MIN (>60); Glucose 128 mg/dl (74-100)
== END ==
PROVIDERS: Visit Provider Urology
DX: I50.9 Heart failure, unspecified (principal); R06.00 Dyspnea, unspecified; R60.0 Localized edema
CPT/HCPCS: 36415; 80048

== ENCOUNTER → 2020-03-15 09:40 | Outpatient (CLI) | payer MEDICAID, SELFPAY ==
--- NOTE | 2020-03-15 09:43 | CT_ITS ---
PROCEDURE: CT CHEST W CON CLINCAL INDICATION: COPD COPD, emphysema, shortness of breath, pleural effusion evaluation COMPARISON: CR XR CHEST 2V from 04/24/2019 DX XR CHEST 2V from 03/06/2020 TECHNIQUE: IV Contrast: 75ml Optiray 350 Axial images obtained with sagittal and coronal reformats. All CT scans at the facility use one or more dose reduction, viz: automated exposure control, ma/kV adjustment per patient size (including targeted exams where dose is matched to indication, i.e. head), or iterative reconstruction technique. FINDINGS: The mediastinal structures are shifted toward the right. No mediastinal or hilar mass or adenopathy is evident. There is a crescentic appearance of the distal aspect of the trachea which can be seen with tracheal bronchomalacia. Loculated pleural effusion is present on the right extending from the lung base posteriorly to the superior aspect of the right lung with loculated effusion superiorly. There is a rounded area of soft tissue density in the right lower lobe measuring 5.6 by 2.7 cm and may be due to a masslike area of consolidation or pulmonary mass. No air bronchograms are evident within this area. consolidation/atelectatic changes are present in the right upper lobe laterally. Pleural lipomatosis is present bilaterally. Upper abdominal images are unremarkable. There are degenerative changes in the thoracic spine. There has been prior right shoulder replacement. There are old left-sided rib fractures. Upper abdominal images are unremarkable. IMPRESSION: 1. Masslike area of consolidation versus pulmonary mass in the right lower lobe posteriorly measuring 5.6 x 2.7 cm. This may be accessible for sampling by bronchoscopy if clinically desired. 2. Loculated right-sided pleural effusion with peripheral consolidation/atelectatic change in the right lower lobe with right lung volume loss and mediastinal shift toward the right. Dictated by: Kiel Byers MD 03/16/2020 09:12 Kiel Byers MD in [place] 03/16/2020 09:12
== END ==
PROVIDERS: PCP Emergency Medicine; Visit Provider Urology
DX: R93.89 Abnormal findings on diagnostic imaging of other specified body structures (principal); R06.00 Dyspnea, unspecified; J44.9 Chronic obstructive pulmonary disease, unspecified; J96.11 Chronic respiratory failure with hypoxia; J98.6 Disorders of diaphragm; F17.210 Nicotine dependence, cigarettes, uncomplicated
CPT/HCPCS: 71260; Q9967

== ENCOUNTER → 2020-04-11 13:10 | Outpatient (CLI) | payer MEDICAID, SELFPAY ==
[2020-04-11 15:06] LABS: Chloride 88 mmol/L (98-107); Sodium 137 mmol/L (136-145)
[2020-04-11 15:09] LABS: Blood Urea Nitrogen 16 mg/dl (9-20); Estimated Glomerular Filt Rate 86 ml/min (>60); GFR (African American) 103 ML/MIN (>60)
[2020-04-11 15:10] LABS: Calcium 9.8 mg/dl (8.4-10.2); Glucose 113 mg/dl (74-100)
[2020-04-11 15:23] LABS: Carbon Dioxide 40 mmol/L (22.0-30.0)
[2020-04-11 15:27] LABS: Coronavirus 19 IgG Antibody Negative (Negative); Coronavirus 19 IgM Antibody Negative (Negative)
== END ==
PROVIDERS: Internal Medicine Gastroenterology; Visit Provider Urology
DX: Z01.818 Encounter for other preprocedural examination (principal); Z12.11 Encounter for screening for malignant neoplasm of colon; I11.0 Hypertensive heart disease with heart failure; I27.20 Pulmonary hypertension, unspecified; I50.32 Chronic diastolic (congestive) heart failure; I50.33 Acute on chronic diastolic (congestive) heart failure; R06.02 Shortness of breath; R60.0 Localized edema; R60.1 Generalized edema
CPT/HCPCS: 36415; 80048; 86328

== ENCOUNTER 2020-04-14 11:28 | Day surgery (SDC) | payer MEDICAID, SELFPAY ==
[2020-04-11 12:39] VITALS: BMI 37.1
[2020-04-14] VITALS (9 sets, daily range): BP systolic 133–147; BP diastolic 53–77; PULSE 66–75; RESP 16–18; TEMP 36.2–36.7; O2SAT 85–100
--- NOTE | 2020-04-14 12:41 | P.PN_ITS ---
[facility] Anesthesia Checklist - Structural Data Admitted From: Home Planned Operative Procedure/s: colonoscopy Consent for Planned Operative Procedure(s) Verified: Yes - Airway Assessment C-Spine Mobility Assessed: Yes TMJ Mobility Assessed: Yes Dentition: Good Dentition - Neurological Assessment Level of Consciousness: Awake, Alert, Appropriate - Anesthesia Plan Anesthesia Risk discussed: Yes Anesthesia Plan: Verified ASA Class: II Anesthesia Type: MAC [facility] History I have reviewed the patient's past medical history: Yes Medical History: Reports:: Anxiety, Congestive Heart Failure, Chronic Obstructive Pulmonary Disease (COPD), Hyperlipidemia, Hypertension Denies:: Cancer, Diabetes Mellitus Type 1, Diabetes Mellitus Type 2, Internal Pacemaker, MRSA, Seizures *Have you ever received a pneumonia vaccine?: Yes *Have you received a flu vaccine this season?: No Anesthesia experience/problems:: none Laterality Cases: Right: Arthroscopy Shoulder Other Surgeries: Yes: Appendectomy, Cardiac Catheterization, Colonoscopy. No: Pacemaker Amputation: No Fractures: No - *Social History Last grade of school completed: High school graduate Smoking Status: Current every day smoker Tobacco Type: cigarettes # Packs/Day (cigarettes): 1 #Yrs smoked (if former smoker): 44 Alcohol Intake: current Alcohol Intake Frequency:: a few times a week Substance Use Type: denies use *Occupational Status:: disabled Housing: house Household Members: family *Travel in the last 8 weeks: None - Psychiatric History Pschychiatric History:: Reports:: Anxiety Family Hx:: Asthma, Heart Attack, Hypertension, Coronary Artery Disease, Cancer
--- NOTE | 2020-04-14 13:43 | HMH.PROC ---
[facility] Procedure Note Procedure Note:: Colonoscopy Procedure Report: Colonoscopy with cold biopsies, snare polypectomy, snare cautery and Endo Clip placement Endoscopist: Fabio Lopez II, MD Referring physician: Josué Durham MD and Jani Gandara MD Date of Procedure: April 14, 2020 Equipment: Olympus 180 variable stiffness pediatric colonoscope Sedation: MAC sedation Indication: Mr. Forbes is a 60-year-old gentleman that was found to have some pulmonary nodules on a scan. He does have a history of COPD, cardiomyopathy and alcoholism but quit a year ago. He has had some constipation. He underwent a PET scan of the abdomen and this did show focal intense activity in the descending colon without a corresponding lesion on the noncontrast CAT scan. There was also focal activity within hepatic segment 7 with no definite corresponding lesion on the CAT scan. The patient has had some new constipation. He reports no rectal bleeding, abdominal pain, weight loss or family history of colon cancer. His last colonoscopy was 12 years ago. Procedure: Prior to the procedure, a history and physical exam was performed, and patient's medications and allergies were reviewed. The risks, benefits and alternatives of the sedation and procedure were discussed with the patient. All questions were answered and informed consent was obtained. The patient was brought to the procedure room. Patient identification and proposed procedure were verified by the physician and the nurse. The patient was placed in a left lateral decubitus position and the scope was passed under direct vision. Throughout the procedure, the patient's blood pressure, pulse, and oxygen saturations were monitored continuously. The colonoscopy was accomplished without difficulty. The patient tolerated the procedure well. Findings: On digital rectal examination there was normal rectal tone. There were no external hemorrhoids. The colonoscope was introduced through the anal canal to the rectum and advanced to the cecum. The ileocecal valve and appendiceal orifice were identified. The scope was advanced a short distance into the ileum which appeared grossly normal. The scope was then withdrawn into the colon. Within the cecum was a marginated mass lesion that was raised with irregular margins and most consistent with colonic adenocarcinoma of the cecum. This was sized at 25 to 30 mm in diameter and this was within the cecal cap and multiple biopsies were obtained from the margins as well as the center of the ulcerated mass. The preparation was fair with brown liquid stool throughout. The ascending colon was normal. There were 2 polyps (transverse x1 (13 mm) and ascending x1 (11 mm)) which were removed via cold snare polypectomy. There was a larger pedunculated polyp in the descending colon that was sent separately and was 24 mm and removed via snare cautery. The stalk was closed with a single Endo Clip. An adjacent 12 mm polyp was removed via cold snare polypectomy. Smaller or diminutive polyps would not be well visualized because of the poor bowel preparation. There were scattered diverticuli throughout the descending and sigmoid colon (LEFT colon). The rectum itself was normal. Upon retroflexion within the rectum there were grade 1-2 internal hemorrhoids. The preparation was fair throughout with [place] Preparation Score of 6 out of 9. The cecal time was 28 minutes. Impression: 1. 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 Metachronous larger/advanced polyps in transverse/descending colon 3. Left-sided diverticulosis 4. Grade 1-2 internal hemorrhoids Plan: I will follow-up the biopsies as well as the polyp histology. I will refer the patient to Dr. Deepak Dodson (colorectal surgery) at the [facility]. Certainly the liver lesions may be metastatic disease. I will discuss the findings with the patient and family. I would recommen
[2020-04-14 15:26] LABS: Chloride 87 mmol/L (98-107); Potassium 3.5 mmoL/L (3.5-5.1); Sodium 135 mmol/L (136-145)
[2020-04-14 15:28] LABS: Blood Urea Nitrogen 10 mg/dl (9-20)
[2020-04-14 15:29] LABS: Alanine Aminotransferase 22 U/L (12-78); Albumin Level 4.1 g/dl (3.5-5.0); Albumin/Globulin Ratio 1.3 (1.1-1.8); Alkaline Phosphatase 98 U/L (38-126); Aspartate Amino Transferase 29 U/L (17-59); Bilirubin,Total 0.4 mg/dl (0.2-1.3); Calcium 9.6 mg/dl (8.4-10.2); Creatinine Clearance Estimated 113 mL/min (50-200); Estimated Glomerular Filt Rate 86 ml/min (>60); GFR (African American) 103 ML/MIN (>60); Globulin 3.1 g/dL (1.3-3.2); Glucose 113 mg/dl (74-100); Iron 28 ug/dL (49-181); Total Protein,Serum 7.2 g/dl (6.3-8.2)
[2020-04-14 15:33] LABS: Anion Gap 11.5 mEq/L (5-15)
[2020-04-14 15:39] LABS: Total Iron Binding Capacity 525 ug/dL (261-462)
[2020-04-14 15:40] LABS: Carbon Dioxide 40 mmol/L (22.0-30.0)
[2020-04-14 16:05] LABS: Ferritin 19.7 ng/ml (17.9-464)
[2020-04-14 18:50] LABS: Basophils # 0.1 K/mm3 (0-0.2); Basophils % 0.8 % (0.1-2.0); Eosinophils # 0.1 K/mm3 (0.0-0.4); Eosinophils % 0.9 % (0.1-12.0); Hematocrit 40.3 % (42.0-52.0); Hemoglobin 12.3 g/dL (14.1-18.0); Lymphocytes # 2.2 K/mm3 (0.7-4.5); Lymphocytes % 17.9 % (10-50); Mean Corpuscular HGB Conc 30.6 g/dL (31.8-35.4); Mean Corpuscular Hemoglobin 25.8 pg (27.0-31.2); Mean Corpuscular Volume 84.5 fl (80-94); Mean Platelet Volume 8.3 fl (7.4-10.4); Monocytes # 0.8 K/mm3 (0.1-1.0); Monocytes % 6.9 % (1.7-9.3); Neutrophils # 8.9 K/mm3 (1.8-7.8); Neutrophils % 73.4 % (37.0-80.0); Platelet Count 572 K/mm3 (142-424); Red Blood Count 4.77 M/mm3 (4.60-6.20); Red Cell Distribution Width 14.7 % (11.5-17.5); White Blood Count 12.1 K/mm3 (4.8-10.8)
[2020-04-16 15:06] LABS: CEA 1.9 ng/mL (0.0-4.7)
== END 2020-04-14 14:45 | disposition home or self-care (01) ==
LOC: OUTP 11:31
PROVIDERS: PCP Emergency Medicine; Visit Provider Internal Medicine Gastroenterology
PROC: 0DJD8ZZ Inspection of Lower Intestinal Tract, Via Natural or Artificial Opening Endoscopic (ICD-10-PCS; CPT 45378; principal; 2020-04-14 13:00)
DX: C18.0 Malignant neoplasm of cecum (principal); C18.4 Malignant neoplasm of transverse colon; D12.4 Benign neoplasm of descending colon; D12.5 Benign neoplasm of sigmoid colon; I50.9 Heart failure, unspecified; I11.0 Hypertensive heart disease with heart failure; E78.5 Hyperlipidemia, unspecified; J44.9 Chronic obstructive pulmonary disease, unspecified; F41.9 Anxiety disorder, unspecified; F32.9 Major depressive disorder, single episode, unspecified; Z99.81 Dependence on supplemental oxygen
CPT/HCPCS: 45380; 45385; 36415; 80053; 82378; 82728; 83540; 83550; 85025

== ENCOUNTER → 2020-05-08 12:03 | Outpatient (CLI) | payer MEDICAID, SELFPAY ==
[2020-05-09 13:09] LABS: Covid-19 Nasal PCR Sendout Lex NOT DETECTED
== END ==
PROVIDERS: PCP Emergency Medicine; Visit Provider Internal Medicine
DX: Z03.818 Encounter for observation for suspected exposure to other biological agents ruled out (principal)
CPT/HCPCS: U0004

== ENCOUNTER → 2020-05-15 14:10 | Outpatient (CLI) | payer MEDICAID, SELFPAY ==
--- NOTE | 2020-05-15 14:13 | XR_ITS ---
PROCEDURE: XR CHEST 2V CLINICAL HISTORY: effusion Shortness of breath COMPARISON: CR XR CHEST 2V from 03/22/2019 CR XR CHEST 2V from 04/24/2019 DX XR CHEST 2V from 03/06/[address] CHEST W CON from 03/15/2020 FINDINGS: There is right-sided lung volume loss with pleural thickening versus loculated effusion along the right upper right lateral right lower lobe. Masslike rounded area of increased density is present in the right lung base as before. There is midline shift to the right with right-sided lung volume loss. Left lung is clear. IMPRESSION: Overall no change in the loculated right-sided pleural effusion with masslike consolidation or pulmonary mass in the right lower lobe and right-sided lung volume loss with mediastinal shift toward the right. Dictated by: Kiel Byers MD 05/16/2020 05:45 Kiel Byers MD in [place] 05/16/2020 05:45
== END ==
PROVIDERS: PCP Emergency Medicine; Visit Provider Internal Medicine Pulmonary Disease
DX: J44.9 Chronic obstructive pulmonary disease, unspecified (principal)
CPT/HCPCS: 71046

== ENCOUNTER → 2020-09-07 11:48 | Outpatient (CLI) | payer MEDICAID, SELFPAY ==
--- NOTE | 2020-09-07 12:10 | XR_ITS ---
PROCEDURE: XR CHEST 2V CLINICAL HISTORY: Effusio n COPD, smoker COMPARISON: CR XR CHEST 2V from 04/24/2019 DX XR CHEST 2V from 03/06/[address] CHEST W CON from 03/15/2020 CR XR CHEST 2V from 05/15/2020 FINDINGS: There is a medium-sized right pleural effusion which is loculated along the right lateral hemithorax. Rounded area of increased density is present along the right lateral hemithorax in the mid to lower aspect posteriorly measuring 7 x 3 cm and could represent an area of loculated effusion or developing nodule. Right apical pleural thickening is once again noted. The mediastinum is shifted toward the right with hyperinflation of the left lung. There is a right total shoulder prosthesis present. No acute bony abnormalities. IMPRESSION: Right-sided pleural effusion not significantly changed with right apical pleural thickening and loculated effusion along the right lateral hemithorax not significantly changed. There remains a 7 x 3 cm mass in the posterior aspect of the right lower lobe which may be better evaluated with CT and to compare to an older study of 03/15/2020 to evaluate for stability or change Dictated by: Kiel Byers MD 09/07/2020 12:39 Kiel Byers MD in [place] 09/07/2020 12:39
[2020-09-07 12:46] LABS: Basophils # 0.1 K/mm3 (0-0.2); Basophils % 0.9 % (0.1-2.0); Eosinophils # 0.2 K/mm3 (0.0-0.4); Eosinophils % 1.7 % (0.1-12.0); Hematocrit 34.7 % (42.0-52.0); Lymphocytes # 2.3 K/mm3 (0.7-4.5); Mean Corpuscular HGB Conc 28.8 g/dL (31.8-35.4); Mean Corpuscular Hemoglobin 21.8 pg (27.0-31.2); Mean Corpuscular Volume 75.7 fl (80-94); Mean Platelet Volume 6.7 fl (7.4-10.4); Monocytes % 8.2 % (1.7-9.3); Neutrophils # 8.4 K/mm3 (1.8-7.8); Neutrophils % 70.1 % (37.0-80.0); Platelet Count 603 K/mm3 (142-424); Red Blood Count 4.58 M/mm3 (4.60-6.20); Red Cell Distribution Width 16.9 % (11.5-17.5)
[2020-09-07 13:22] LABS: Alanine Aminotransferase 15 U/L (12-78); Alkaline Phosphatase 81 U/L (38-126); Aspartate Amino Transferase 24 U/L (17-59); Bilirubin,Direct 0.1 mg/dl (0.0-0.4); Bilirubin,Indirect 0.2 mg/dL (0.0-0.9); Bilirubin,Total 0.3 mg/dl (0.2-1.3); Bilirubin,Unconjugated 0.3 mg/dL (0.0-1.1); Blood Urea Nitrogen 18 mg/dl (9-20); Calcium 10.1 mg/dl (8.4-10.2); Chloride 81 mmol/L (98-107); Chol/HDL Ratio 3.4 (1-3.5); Cholesterol 181 mg/dl (140-200); Estimated Glomerular Filt Rate 98 ml/min (>60); GFR (African American) 119 ML/MIN (>60); Glucose 111 mg/dl (74-100); HDL Cholesterol 54 mg/dl (40-60); Potassium 3.9 mmoL/L (3.5-5.1); Sodium 133 mmol/L (136-145); Total Protein,Serum 6.8 g/dl (6.3-8.2); Triglycerides 145 mg/dl (30-150); VLDL Cholesterol 29 mg/dL (0-40)
[2020-09-07 13:24] LABS: Anion Gap 15.9 mEq/L (5-15)
[2020-09-07 13:33] LABS: Direct LDL Cholesterol 91.56 mg/dL (100-129)
[2020-09-07 13:38] LABS: Free T4 (Free Thyroxine) 1.92 ng/dl (0.78-2.19)
[2020-09-07 13:42] LABS: Carbon Dioxide 40 mmol/L (22.0-30.0)
[2020-09-07 13:53] LABS: Thyroid Stimulating Hormone 0.07 uIU/mL (0.465-4.68)
== END ==
PROVIDERS: PCP Emergency Medicine; Visit Provider Nurse Practitioner Family
DX: R06.00 Dyspnea, unspecified (principal); J90 Pleural effusion, not elsewhere classified; J44.9 Chronic obstructive pulmonary disease, unspecified; I50.33 Acute on chronic diastolic (congestive) heart failure; I11.0 Hypertensive heart disease with heart failure; I27.20 Pulmonary hypertension, unspecified
CPT/HCPCS: 36415; 71046; 80048; 80061; 80076; 84439; 84443; 85025

== ENCOUNTER → 2020-09-14 13:48 | Outpatient (CLI) | payer MEDICAID, SELFPAY | PROVIDERS: Visit Provider Physician Assistant | DX: R79.89 Other specified abnormal findings of blood chemistry (principal) | CPT/HCPCS: 84443 ==

== ENCOUNTER → 2020-10-03 16:02 | Outpatient (CLI) | payer MEDICAID, SELFPAY ==
--- NOTE | 2020-10-03 16:07 | XR_ITS ---
PROCEDURE: XR CHEST 2V CLINICAL HISTORY: pneumonia COMPARISON: DX XR CHEST 2V from 03/06/[address] CHEST W CON from 03/15/2020 CR XR CHEST 2V from 05/15/2020 CR XR CHEST 2V from 09/07/2020 FINDINGS: Moderate right effusion with adjacent compressive atelectasis, worse compared to the prior study. Left lung is clear. Atelectasis noted in the left lower zone. Shift of trachea and mediastinum to the right. Cardiac margins are obscured by the right pleural effusion. Reversed right shoulder arthroplasty. Degenerative changes of the visualized thoracic spine. IMPRESSION: Moderate right effusion with adjacent compressive atelectasis, marginally worse compared to the prior study. Dictated by: Mary Jane Sommer 10/03/2020 16:54 Mary Jane Sommer in [place] 10/03/2020 16:54
[2020-10-03 17:38] LABS: Free T4 (Free Thyroxine) 1.14 ng/dl (0.78-2.19)
[2020-10-03 17:53] LABS: Thyroid Stimulating Hormone 5.39 uIU/mL (0.465-4.68)
== END ==
PROVIDERS: PCP Family Medicine; Visit Provider Family Medicine
DX: E05.90 Thyrotoxicosis, unspecified without thyrotoxic crisis or storm (principal)
CPT/HCPCS: 36415; 71046; 84439; 84443

== ENCOUNTER 2020-10-23 11:21 | Emergency (ER) | payer MEDICAID, SELFPAY ==
[2020-10-23 11:22] VITALS: BP 141/78; PULSE 82; RESP 22; TEMP 36.9; O2SAT 94; BMI 29.5
--- NOTE | 2020-10-23 11:30 | XR_ITS ---
PROCEDURE INFORMATION: Exam: XR Chest Exam date and time: 10/23/2020 11:30 AM Age: 60 years old Clinical indication: Cough and other: Congestion TECHNIQUE: Imaging protocol: XR of the chest. Views: 1 view. COMPARISON: CR XR CHEST 2V 10/03/2020 4:29 PM FINDINGS: Lungs: Opacities in the right mid lung and right base may represent atelectasis or pneumonia.. Pleural spaces: Moderate to large right pleural effusion. Heart/Mediastinum: Unremarkable. No cardiomegaly. Bones/joints: Right total shoulder arthroplasty Other findings: Patient is rotated to the right IMPRESSION: 1. Moderate to large right pleural effusion. 2. Opacities in the right mid lung and right base may represent atelectasis or pneumonia..
--- NOTE | 2020-10-23 11:30 | HMH.EDGENADL ---
ED Disposition Clinical Impression: Penile lesion COPD (chronic obstructive pulmonary disease) Qualifiers: COPD type: unspecified COPD Qualified Code(s): J44.9 - Chronic obstructive pulmonary disease, unspecified Disposition: Home, Self-Care Condition on Discharge: Fair Additional Instructions: You have been evaluated for a penile lesion. Diagnosed with a skin infection. Please use Bactroban. Take Keflex as prescribed. Follow-up with your primary care doctor for recheck in 2 to 3 days. Return to the emergency department for any new or worsening symptoms, fevers, chills, nausea, vomiting, other concerns. Prescriptions: Mupirocin [Bactroban 2% Ointment 22gm tube] 1 applicatio TP TID 5 Days #1 tube Transmission Status: [facility] cephALEXin [Cephalexin 500mg Tab] 500 mg PO QID #20 tab Transmission Status: [facility] to [facility] Referrals: Josué Durham MD [Primary Care Provider] - Time of Disposition: 11:35 - Critical Care Critical Care Time: No Attestation: On 10/23/20, the high probability of a clinically significant, sudden or life threatening deterioration of the following system(s) required my full and direct attention, intervention and personal management. The time I documented below is in addition to time spent performing reported procedures but includes the following listed in this critical care notation. Medical Decision Making - Medical Records Medical records reviewed: Yes: I reviewed the patient's medical records. - Shola Inquiry Pt receiving controlled substance: No Vital Signs: 10/23/20 11:22 Temperature 98.5 F Temperature Source Oral Pulse Rate [Radial] 82 Respiratory Rate 22 Blood Pressure [Right Arm] 141/78 H Blood Pressure Mean [Right Arm] 99 Blood Pressure Position [Right Arm] Sitting 02 Sat by Pulse Oximetry 94 L Oxygen Delivery Method Nasal Cannula Oxygen Flow Rate (LPM) 4 Orders (Tests/Meds): ED MEDICATIONS Discontinued Medications Generic Name Dose Route Start Last Admin Trade Name Freq PRN Reason Stop Dose Admin Cephalexin HCl 500 mg 10/23/20 12:15 Cephalexin 500mg Capsule PO 10/23/20 12:16 ONCE ONE Protocol Medical Decision Narrative: In summary this is a 60-year-old male presenting to the emergency department with a lesion on his penis. Clinically stable on arrival. Vital signs within normal limits. Most likely diagnosis is a superficial soft tissue skin infection, most likely staph or strep. Given prescriptions for Bactroban and Keflex. Instructed to follow-up with his PCP for recheck. After my initial evaluation daughter was concerned for wet cough. Concern for pneumonia. He is afebrile. No hypoxia. Will obtain screening chest x-ray. Chest x-ray shows persistent right-sided effusion with compressive atelectasis. This is improved from previous studies 2 weeks ago. Patient denying dyspnea. Counseled to monitor. General Adult HPI - General Stated complaint: yellow spots on tip of penis Time Seen by Provider: 10/23/20 11:30 Mode of Arrival: Ambulatory Source of Information: Patient Limitations: No Limitations - History of Present Illness HPI narrative: 60-year-old male presenting to the emergency department with a lesion on the head of his penis. Daughter noticed it today. She is his caregiver. It is located at the 4 o'clock position on the head of the penis. Is less than 1 cm in diameter, irregularly shaped, yellow and scab-like. She did not notice yesterday. No other rashes or lesions. Is not sexually active. Is circumcised. No pain with urination. He has stage IV cancer and advanced COPD. Uses oxygen, nebulizer, rescue inhaler. She is also concerned that he has had a thick cough over the last few days. Patient denies fevers, chills, nausea, vomiting. - Related Data Home Medications Medication Instructions Recorded Confirmed Spironolactone 50 mg PO DAILY 04/11/20
[2020-10-23 12:53] VITALS: BP 132/74; PULSE 78; RESP 16; TEMP 36.6; O2SAT 98
== END 2020-10-23 12:54 | disposition home or self-care (01) ==
PROVIDERS: Emergency Provider Emergency Medicine; PCP Emergency Medicine
DX: N48.9 Disorder of penis, unspecified (principal); C18.9 Malignant neoplasm of colon, unspecified; C78.7 Secondary malignant neoplasm of liver and intrahepatic bile duct; J44.9 Chronic obstructive pulmonary disease, unspecified; I10 Essential (primary) hypertension; E78.5 Hyperlipidemia, unspecified; F17.210 Nicotine dependence, cigarettes, uncomplicated; Z79.899 Other long term (current) drug therapy
CPT/HCPCS: 71045; 99282

== ENCOUNTER 2020-11-06 11:19 | Inpatient (IN) | payer MEDICAID, SELFPAY ==
[2020-11-06] VITALS (8 sets, daily range): BP systolic 90–117; BP diastolic 52–99; PULSE 61–88; RESP 12–24; TEMP 36.6–37.4; O2SAT 93–98; BMI 29.5; BMI 32.0
--- NOTE | 2020-11-06 11:22 | XR_ITS ---
PROCEDURE: XR CHEST PORTABLE CLINICAL HISTORY: SOB COMPARISON: CT CT CHEST W CON from 03/15/2020 CR XR CHEST 2V from 09/07/2020 CR XR CHEST 2V from 10/03/2020 CR XR CHEST PORTABLE from 10/23/2020 FINDINGS: Moderate to large right pleural effusion mildly increased from prior study with right basilar consolidation, likely atelectasis. Mild left basilar scar versus atelectasis. Heart mildly enlarged but stable. Right shoulder arthroplasty again noted. No acute bony abnormality. IMPRESSION: Moderate to large right pleural effusion mildly increased from prior study with right basilar consolidation, likely atelectasis. Dictated by: José Antonio Simms 11/06/2020 11:43 José Antonio Simms in [place] 11/06/2020 11:43
--- NOTE | 2020-11-06 11:35 | PC.NURSE ---
rad at portable xray
--- NOTE | 2020-11-06 11:38 | HMH.EDFEV ---
ED Disposition Clinical Impression: Acute exacerbation of chronic obstructive airways disease, Acute and chronic respiratory failure with hypoxia Community acquired pneumonia Qualifiers: Laterality: right Lung location: lower lobe of lung Qualified Code(s): J18.9 - Pneumonia, unspecified organism Anemia Qualifiers: Anemia type: due to chronic kidney disease Chronic kidney disease stage: stage 3 (moderate) Chronic kidney disease stage 3 subtype: stage 3a (GFR 45-59) Qualified Code(s): N18.31 - Chronic kidney disease, stage 3a; D63.1 - Anemia in chronic kidney disease Sepsis Qualifiers: Sepsis type: sepsis due to unspecified organism Sepsis acute organ dysfunction status: with acute organ dysfunction Severe sepsis acute organ dysfunction type: acute renal failure Acute renal failure type: unspecified Severe sepsis shock status: without septic shock Qualified Code(s): A41.9 - Sepsis, unspecified organism; R65.20 - Severe sepsis without septic shock; N17.9 - Acute kidney failure, unspecified Disposition: Admitted As Inpatient Condition on Discharge: Fair Referrals: Josué Durham MD [Primary Care Provider] - - Critical Care Critical Care Time: No Attestation: On 11/06/20, the high probability of a clinically significant, sudden or life threatening deterioration of the following system(s) required my full and direct attention, intervention and personal management. The time I documented below is in addition to time spent performing reported procedures but includes the following listed in this critical care notation. Medical Decision Making - Medical Records Medical records reviewed: Yes: I reviewed the patient's medical records. - Shola Inquiry Pt receiving controlled substance: No Vital Signs: 11/06/20 11:19 11/06/20 11:49 11/06/20 12:00 Temperature 99.3 F Temperature Source Rectal Pulse Rate 74 73 Pulse Rate [Radial] 76 Respiratory Rate 24 12 22 Blood Pressure 111/68 114/67 Blood Pressure [Right Arm] 117/99 H Blood Pressure Mean [Right Arm] 105 Blood Pressure Position [Right Arm] Sitting 02 Sat by Pulse Oximetry 97 98 94 L Oxygen Delivery Method Nasal Cannula Oxygen Flow Rate (LPM) 6 11/06/20 12:30 Temperature Temperature Source Pulse Rate Pulse Rate [Radial] Respiratory Rate 23 Blood Pressure 106/67 L Blood Pressure [Right Arm] Blood Pressure Mean [Right Arm] Blood Pressure Position [Right Arm] 02 Sat by Pulse Oximetry 93 L Oxygen Delivery Method Nasal Cannula Oxygen Flow Rate (LPM) 6 - Lab Data Lab Results 11/06/20 11:22: Specimen Source Left radial, O2 % 6l, ABG pH 7.31 L, ABG pCO2 103.1 H, ABG pO2 120.4 H, ABG HCO3 50.7 H, ABG Total CO2 53.9 H, ABG O2 Saturation 98, ABG Base Excess 24.5 H, Kiel Test Acceptable 11/06/20 11:32: WBC 23.7 H*, RBC 4.46 L, Hgb 9.5 L, Hct 33.6 L, MCV 75.3 L, MCH 21.3 L, MCHC 28.3 L, RDW 16.5, Plt Count 667 H, MPV 6.8 L, Neut % (Auto) 90.3 H, Lymph % (Auto) 4.7 L, [place] % (Auto) 4.4, Eos % (Auto) 0.1, Baso % (Auto) 0.5, Neut # (Auto) 21.4 H, Lymph # (Auto) 1.1, [place] # (Auto) 1.1 H, Eos # (Auto) 0.0, Baso # (Auto) 0.1, Total Counted 100, Neutrophils % (Manual) 94 H, Lymphocytes % (Manual) 2 L, Monocytes % (Manual) 4, Platelet Estimate Normal, Hypochromasia 3+, Anisocytosis 1+, Microcytosis 2+ 11/06/20 11:32: Sodium 134 L, Potassium 4.5, Chloride 79 L, Carbon Dioxide > 40 H*, Anion Gap 19.5 H, BUN 20, Creatinine 1.00, Estimated Creat Clear 98, Estimated GFR 76, Est GFR ( Amer) 92, Glucose 164 H, Calcium 9.3, Total Bilirubin 0.3, AST 22, ALT 13, Alkaline Phosphatase 89, Troponin I < 0.01, Total Protein 7.1, Albumin 3.7, Globulin 3.4 H, Albumin/Globulin Ratio 1.1, TSH 0.93 11/06/20 11:32: Lactate 1.5 11/06/20 11:32: NT-Pro-B Natriuret Pep 241 H 11/06/20 11:54: SARS-CoV-2 (PCR) Not detected, Influenza A Untype (PCR) Not detected, Influenza Type B (PCR) Not detected Result diagrams: 11/06/20 11:32 11/06/20 11:32 Orders (Tests/Meds): E
--- NOTE | 2020-11-06 11:39 | ECG_ITS ---
APPROVED REPORT Exam: Resting ECG HR:75 bpm ECG Measurements Heart Rate 75 AXES WV 164 P 38 QRSd 94 QRS 20 QT 416 T 48 QTc 464 Conclusion Normal sinus rhythm Normal ECG Electronically signed by : Washington Collazo, 11/07/2020 08:19:36
--- NOTE | 2020-11-06 11:44 | PC.NURSE ---
RT at BS for williams
[2020-11-06 11:50] LABS: Basophils # 0.1 K/mm3 (0-0.2); Basophils % 0.5 % (0.1-2.0); Eosinophils % 0.1 % (0.1-12.0); Hematocrit 33.6 % (42.0-52.0); Hemoglobin 9.5 g/dL (14.1-18.0); Lymphocytes # 1.1 K/mm3 (0.7-4.5); Lymphocytes % 4.7 % (10-50); Mean Corpuscular HGB Conc 28.3 g/dL (31.8-35.4); Mean Corpuscular Hemoglobin 21.3 pg (27.0-31.2); Mean Corpuscular Volume 75.3 fl (80-94); Mean Platelet Volume 6.8 fl (7.4-10.4); Monocytes # 1.1 K/mm3 (0.1-1.0); Monocytes % 4.4 % (1.7-9.3); Neutrophils # 21.4 K/mm3 (1.8-7.8); Neutrophils % 90.3 % (37.0-80.0); Platelet Count 667 K/mm3 (142-424); Red Blood Count 4.46 M/mm3 (4.60-6.20); Red Cell Distribution Width 16.5 % (11.5-17.5); White Blood Count 23.7 K/mm3 (4.8-10.8)
[2020-11-06 11:53] LABS: MANUAL DIFFERENTIAL MANUAL DIFFERENTIAL (MANUAL DIFF)
--- NOTE | 2020-11-06 11:56 | PC.NURSE ---
PT given urinal to collect urine. Pt and family aware this is needed
[2020-11-06 11:57] LABS: Coronavirus 19, PCR Not Detected (NotDetected); Influenza A, PCR Not Detected (NotDetected); Influenza B, PCR Not Detected (NotDetected)
[2020-11-06 11:57] LABS: ABG Base Excess 24.5 mmol/L (-2.4-2.3); ABG HCO3 50.7 mmhg (22.0-26.0); ABG Oxygen Saturation 98 % (90-100); ABG PH 7.31 mmol/L (7.35-7.45); ABG PO2 120.4 mmhg (80-100); ABG TCO2 53.9 mmhg (23-27)
[2020-11-06 11:57] LABS: Potassium 4.5 mmoL/L (3.5-5.1); Sodium 134 mmol/L (136-145)
[2020-11-06 11:58] LABS: Allen's Test Acceptable; Oxygen 6L %; Source Left Radial
[2020-11-06 11:58] LABS: Chloride 79 mmol/L (98-107)
[2020-11-06 11:59] LABS: ABG PCO2 103.1 mmhg (35.0-45.0)
--- NOTE | 2020-11-06 11:59 | PC.NURSE ---
Md aware of blood gas results
[2020-11-06 12:00] LABS: Alanine Aminotransferase 13 U/L (12-78); Albumin Level 3.7 g/dl (3.5-5.0); Albumin/Globulin Ratio 1.1 (1.1-1.8); Alkaline Phosphatase 89 U/L (38-126); Aspartate Amino Transferase 22 U/L (17-59); Bilirubin,Total 0.3 mg/dl (0.2-1.3); Blood Urea Nitrogen 20 mg/dl (9-20); Creatinine Clearance Estimated 98 mL/min (50-200); Estimated Glomerular Filt Rate 76 ml/min (>60); GFR (African American) 92 ML/MIN (>60); Globulin 3.4 g/dL (1.3-3.2); Total Protein,Serum 7.1 g/dl (6.3-8.2)
[2020-11-06 12:01] LABS: Calcium 9.3 mg/dl (8.4-10.2); Glucose 164 mg/dl (74-100); Lactic Acid 1.5 mmol/L (0.7-2.1)
--- NOTE | 2020-11-06 12:03 | PC.NURSE ---
PT WITH FENTANYL PATCH RT UPPER ARM FROM HOME
--- NOTE | 2020-11-06 12:07 | HMH.PHACONS ---
- Pharmacy Consult Date: 11/06/20 Time: 12:07 Referring provider: DR. SALEH Reason for Consult:: VANCOMYCIN DOSING Allergies and ADEs:: Allergies Allergy/AdvReac Type Severity Reaction Status Date / Time alfalfa Allergy Intermediate Swelling Verified 10/16/20 17:14 of Lip/Tongue/Throat shellfish derived Allergy Mild Unknown Verified 10/16/20 17:14 allergy reaction Opioids-Meperidine and Allergy itch Verified 10/16/20 17:14 Related Home Medications:: Home Medications Medication Instructions Recorded Confirmed Type magnesium oxide 400 mg PO DAILY #90 cap 06/28/19 11/02/20 Rx Spironolactone 50 mg PO DAILY 04/11/20 11/02/20 History Torsemide 100 mg PO DAILY 04/11/20 11/02/20 History verapamil 180 mg tablet,extended 180 mg PO BID tab 04/11/20 11/02/20 History release albuterol sulfate 2.5 mg INHALATION Q4H PRN #180 ml 06/08/20 11/02/20 Rx albuterol sulfate 90 mcg/actuation 1 inh INHALATION QID PRN #8.5 g 06/08/20 11/02/20 Rx aerosol inhaler fluticasone propionate 110 1 puff INHALATION BID #12 g 09/07/20 11/02/20 Rx mcg/actuation HFA aerosol inhaler glycopyrrolate 9 mcg-formoterol 2 puff INHALATION BID #10.7 g 09/07/20 11/02/20 Rx 4.8 mcg HFA aerosol inhaler ipratropium 0.5 mg-albuterol 3 mg 3 ml INHALATION QID PRN #180 ml 09/07/20 11/02/20 Rx (2.5 mg base)/3 mL nebulization soln ipratropium 20 mcg-albuterol 100 1 puff INHALATION Q6H PRN #4 g 09/07/20 11/02/20 Rx mcg/actuation mist for inhalation sertraline 50 mg tablet 50 mg PO DAILY #30 tab 09/11/20 11/02/20 Rx metoprolol tartrate 50 mg tablet 50 mg PO BID tab 10/12/20 11/02/20 History pravastatin 20 mg tablet 20 mg PO HS tab 10/12/20 11/02/20 History clonazepam 1 mg tablet 1 mg PO QID PRN #120 tab 10/13/20 11/02/20 Rx quetiapine 50 mg tablet 50 mg PO QHS PRN #30 tab 10/13/20 11/02/20 Rx oxycodone-acetaminophen 5 mg-325 1 tab PO QID PRN #120 tab 10/17/20 11/02/20 Rx mg tablet montelukast 10 mg tablet See Rx Instructions .ROUTE 10/20/20 11/02/20 Rx .COMPLEX #90 tab lorazepam 1 mg tablet 1 mg PO BID PRN #30 tab 11/01/20 11/02/20 Rx fentanyl 75 mcg/hr transdermal 1 patch TRANSDERMA Q72H #10 each 11/03/20 Rx patch Height: 1.75 m Weight: 90.718 kg Laboratory Results:: Laboratory Results - last 24 hr 11/06/20 11:22: Specimen Source Left radial, O2 % 6l, ABG pH 7.31 L, ABG pCO2 103.1 H, ABG pO2 120.4 H, ABG HCO3 50.7 H, ABG Total CO2 53.9 H, ABG O2 Saturation 98, ABG Base Excess 24.5 H, Kiel Test Acceptable 11/06/20 11:32: WBC 23.7 H*, RBC 4.46 L, Hgb 9.5 L, Hct 33.6 L, MCV 75.3 L, MCH 21.3 L, MCHC 28.3 L, RDW 16.5, Plt Count 667 H, MPV 6.8 L, Neut % (Auto) 90.3 H, Lymph % (Auto) 4.7 L, [place] % (Auto) 4.4, Eos % (Auto) 0.1, Baso % (Auto) 0.5, Neut # (Auto) 21.4 H, Lymph # (Auto) 1.1, [place] # (Auto) 1.1 H, Eos # (Auto) 0.0, Baso # (Auto) 0.1 11/06/20 11:32: Sodium 134 L, Potassium 4.5, Chloride 79 L 11/06/20 11:32: Lactate 1.5 Medical History: Reports:: Anxiety, Congestive Heart Failure, Chronic Obstructive Pulmonary Disease (COPD), Hyperlipidemia, Hypertension Denies:: Cancer, Diabetes Mellitus Type 1, Diabetes Mellitus Type 2, Internal Pacemaker, MRSA, Seizures Assessment and Plan - Assessment and plan all Dx Assessment and Plan for all problems:: Age: 60 yo Serum creatinine: 1 mg/dL Height: 68.9 Inches Weight (kg): 90 Assessment: IBW (kg): 70.47 Dosing wt(kg): 90 Estimated Creatinine clearance (ml/min): 76.3 CRCL method: Cockcroft and Gault using ibw(default). Drug selected: Vancomycin Loading dose (mg): 0 Vd (liters): 72.0 (factor used: 0.8 L/kg) Dawit (hr-1): 0.068 Half life (hrs): 10.19 Recommended dose: 1500 mg Interval: 12 hrs Infusion time (hrs): 2.0 Predicted peak (mcg/mL): 34.9 Predicted trough (mcg/mL): 17.68 Total body weight is being used for vancomycin dosing. Recommendation
[2020-11-06 12:08] LABS: Anion Gap 19.5 mEq/L (5-15); Carbon Dioxide > 40 mmol/L (22.0-30.0)
--- NOTE | 2020-11-06 12:08 | PC.NURSE ---
critical CO2 reported to RODNEY DOTSON
[2020-11-06 12:11] LABS: NT Pro Brain Natriuretic Pep. 241 pg/mL (0-125)
[2020-11-06 12:18] LABS: Troponin I < 0.01 ng/ml (0.00-0.034)
[2020-11-06 12:32] LABS: Thyroid Stimulating Hormone 0.93 uIU/mL (0.465-4.68)
[2020-11-06 12:44] LABS: Anisocytosis 1+; Hypochromasia 3+; Lymphocytes % 2 % (10-50); Microcytosis 2+; Monocytes % 4 % (2-9); Neutrophils % 94 % (42-76); Platelet Estimate Normal; Total Cells Counted 100
--- NOTE | 2020-11-06 13:01 | PC.NURSE ---
notified care management of admission, spoke with
[2020-11-06 13:03] LABS: Microscopic, Urine URINE MICROSCOPIC (MICROSCOPIC)
[2020-11-06 13:07] LABS: Appearance,Urine CLEAR (Clear); Bilirubin,Urine Negative (Negative); Blood, Urine Negative (Negative); Color,Urine YELLOW (Yellow); Glucose,Urine (UA) Negative (Negative); Ketones,Urine Negative (Negative); Leukocyte Esterase,Urine Negative (Negative); Nitrate,Urine Negative (Negative); Protein,Urine Negative (Negative); Urobilinogen,Urine 0.2 EU/dl (0.2)
--- NOTE | 2020-11-06 14:22 | PC.NURSE ---
REPORT CALLED TO FLOOR
[2020-11-06 15:25] LABS: Troponin I < 0.01 ng/ml (0.00-0.034)
--- NOTE | 2020-11-06 17:26 | HMH.HP ---
*Admission Date: 11/06/20 *Chief complaint: fever,pneumonia,sepsis *History of present illness: Patient is a 60-year-old white male, known to me from the office, and is a very poor historian. He is cared for by 3 family members at home. They relay a history of colon cancer with mets to the liver. By the sister's account this was confirmed on PET scans. He has a history of pulmonary nodules, but these were not related to be malignant. Patient was seen in the office about a month ago for cough in the setting of COPD. He was treated with a course of Rocephin IM, Levaquin p.o. and injectable Depo-Medrol. Chest x-ray from that visit showed an effusion on the right. Was treated in the setting of longstanding COPD with a propensity for pneumonia. Audio check-in's were made from the office with the family regarding Lloyds increased pain and agitation. Over the last few months he has been agitated, sleeping poorly, complaining of diffuse pain. He has been on hydrocodone, then oxycodone, and was on occasion spitting the pills out. Recently placed a transdermal fentanyl with what appeared to be decent results. Patient does remain very confused. Family felt that pain was precluding restful sleep. Patient developed a fever over the weekend, T-max was 102. He was brought to the emergency room for further evaluation. His chest film showed an effusion and possible pneumonia on the right. He had an elevated lactic, elevated white count. He was felt to be septic. Lab work also showed some hypoxia in the setting of chronic ventilatory failure. He is admitted for IV antibiotics, and further evaluation. [facility] History Medical History: Reports:: Anxiety, Congestive Heart Failure, Chronic Obstructive Pulmonary Disease (COPD), Hyperlipidemia, Hypertension Denies:: Cancer, Diabetes Mellitus Type 1, Diabetes Mellitus Type 2, Internal Pacemaker, MRSA, Seizures *Have you ever received a pneumonia vaccine?: No *Have you received a flu vaccine this season?: No Laterality Cases: Right: Arthroscopy Shoulder Other Surgeries: Yes: Appendectomy, Cardiac Catheterization, Colonoscopy. No: Pacemaker Amputation: No Fractures: No - *Social History Last grade of school completed: High school graduate Smoking Status: Current every day smoker Tobacco Type: cigarettes # Packs/Day (cigarettes): 1 #Yrs smoked (if former smoker): 44 Alcohol Intake: never Alcohol Intake Frequency:: a few times a week Substance Use Type: denies use *Occupational Status:: retired Housing: house Household Members: family *Travel in the last 8 weeks: None - Psychiatric History Pschychiatric History:: Reports:: Anxiety Family Hx:: Asthma, Heart Attack, Hypertension, Coronary Artery Disease, Cancer Review of Systems - Review of Systems Review of systems:: unable to obtain - *Neurologic Denies headache(s) Meds Home Medications Medication Instructions Recorded Confirmed Type magnesium oxide 400 mg PO DAILY #90 cap 06/28/19 11/06/20 Rx Spironolactone 50 mg PO DAILY 04/11/20 11/06/20 History Torsemide 100 mg PO DAILY 04/11/20 11/06/20 History verapamil 180 mg tablet,extended 180 mg PO BID tab 04/11/20 11/06/20 History release albuterol sulfate 2.5 mg INHALATION Q4H PRN #180 ml 06/08/20 11/06/20 Rx albuterol sulfate 90 mcg/actuation 1 inh INHALATION QID PRN #8.5 g 06/08/20 11/06/20 Rx aerosol inhaler ipratropium 0.5 mg-albuterol 3 mg 3 ml INHALATION QID PRN #180 ml 09/07/20 11/06/20 Rx (2.5 mg base)/3 mL nebulization soln ipratropium 20 mcg-albuterol 100 1 puff INHALATION Q6H PRN #4 g 09/07/20 11/06/20 Rx mcg/actuation mist for inhalation sertraline 50 mg tablet 50 mg PO DAILY #30 tab 09/11/20 11/06/20 Rx metoprolol tartrate 50 mg tablet 50 mg PO BID tab 10/12/20 11/06/20 History pravastatin 20 mg tablet 20 mg PO HS tab 10/12/20 11/06/20 History clonazepam 1 mg tablet 1 mg PO QID PRN #120 tab 10/13/20 11/06/20 Rx oxycodone-acetaminophen 5 mg-325 1 tab PO QID PRN #
[2020-11-06 18:37] LABS: Troponin I < 0.01 ng/ml (0.00-0.034)
--- NOTE | 2020-11-06 19:47 | PC.NURSE ---
PT IS VERY CONFUSED. CAN TELL YOU HIS NAME. VSS SINCE ARRIVAL TO THE FLOOR. 5 LNC FOR O2 SUPPORT, [facility]IANSON CATH IN PLACE DRAINING CLEAR YELLOW URINE. NO NEEDS AT THIS TIME.
[2020-11-07] VITALS (8 sets, daily range): BP systolic 103–133; BP diastolic 53–76; PULSE 65–88; RESP 17–20; TEMP 36.4–37; O2SAT 92–100; BMI 31.8
--- NOTE | 2020-11-07 05:55 | PC.NURSE ---
Patient slept most of the shift until about 0500. ABx administered per order. Vanc Trough tonight at 2200 hours. Pt very confused at this time. Patient oriented X 1. Patient's sister at the bedside. Will continue to monitor for any acute changes.
[2020-11-07 06:23] LABS: Basophils # 0.1 K/mm3 (0-0.2); Basophils % 0.4 % (0.1-2.0); Eosinophils # 0.4 K/mm3 (0.0-0.4); Eosinophils % 2.1 % (0.1-12.0); Hematocrit 29.5 % (42.0-52.0); Hemoglobin 8.6 g/dL (14.1-18.0); Lymphocytes # 2.1 K/mm3 (0.7-4.5); Mean Corpuscular Hemoglobin 21.8 pg (27.0-31.2); Mean Corpuscular Volume 75.1 fl (80-94); Mean Platelet Volume 7.5 fl (7.4-10.4); Monocytes # 1.1 K/mm3 (0.1-1.0); Monocytes % 6.3 % (1.7-9.3); Neutrophils # 14.1 K/mm3 (1.8-7.8); Neutrophils % 79.3 % (37.0-80.0); Platelet Count 581 K/mm3 (142-424); Red Blood Count 3.93 M/mm3 (4.60-6.20); Red Cell Distribution Width 16.7 % (11.5-17.5); White Blood Count 17.8 K/mm3 (4.8-10.8)
[2020-11-07 06:27] LABS: Chloride 84 mmol/L (98-107); Potassium 3.8 mmoL/L (3.5-5.1); Sodium 135 mmol/L (136-145)
[2020-11-07 06:30] LABS: Alanine Aminotransferase 8 U/L (12-78); Albumin Level 3.3 g/dl (3.5-5.0); Albumin/Globulin Ratio 1.1 (1.1-1.8); Alkaline Phosphatase 82 U/L (38-126); Aspartate Amino Transferase 18 U/L (17-59); Bilirubin,Total 0.2 mg/dl (0.2-1.3); Blood Urea Nitrogen 21 mg/dl (9-20); Creatinine Clearance Estimated 81 mL/min (50-200); Estimated Glomerular Filt Rate 61 ml/min (>60); GFR (African American) 74 ML/MIN (>60); Globulin 3.1 g/dL (1.3-3.2); Total Protein,Serum 6.4 g/dl (6.3-8.2)
[2020-11-07 06:31] LABS: Calcium 8.8 mg/dl (8.4-10.2); Glucose 113 mg/dl (74-100)
[2020-11-07 07:02] LABS: MANUAL DIFFERENTIAL MANUAL DIFFERENTIAL (MANUAL DIFF)
--- NOTE | 2020-11-07 07:31 | P.CONPHA_ITS ---
[facility] Pharmacy VTE Monitoring - Patient Demographics Admission date: 11/06/20 Report Date: 11/07/20 Time: 07:31 Allergies/Adverse Reactions: Patient Allergies alfalfa Allergy (Intermediate, Verified 10/16/20 17:14) Swelling of Lip/Tongue/Throat shellfish derived Allergy (Mild, Verified 10/16/20 17:14) Unknown allergy reaction Opioids-Meperidine and Related Allergy (Verified 10/16/20 17:14) itch Height: 1.68 m Weight: 89.98 kg Patient Problems: Current Active Problems Community acquired pneumonia (Acute) Sepsis (Acute) Acute and chronic respiratory failure with hypoxia (Acute) Agitation (Chronic) Leukocytosis (Acute) Metastatic colon cancer to liver (Acute) Pneumonia (Acute) Acute exacerbation of chronic obstructive airways disease (Acute) Anemia (Acute) Obesity (Chronic) Shortness of breath (Chronic) Dyspnea (Chronic) COPD (chronic obstructive pulmonary disease) (Chronic) - VTE Risk Labs: VTE Related Lab Results Hgb 8.6 g/dL (14.1-18.0) L 11/07/20 05:44 Hct 29.5 % (42.0-52.0) L 11/07/20 05:44 Plt Count 581 K/mm3 (142-424) H 11/07/20 05:44 BUN 20 mg/dl (9-20) 11/06/20 11:32 Creatinine 1.00 mg/dl (0.66-1.25) 11/06/20 11:32 Estimated Creat Clear 98 mL/min (50-200) 11/06/20 11:32 - Prophylaxis VTE Prophylaxis Ordered?: Yes Types of VTE Prophylaxis: TEDS Knee High, Pharmacological Location of Applied Device: Bilateral Lower Extremeties Pharmacologic Type: Heparin
[2020-11-07 07:46] LABS: Anisocytosis 1+; Eosinophils % 2 % (0-3); Hypochromasia 1+; Lymphocytes % 11 % (10-50); Monocytes % 4 % (2-9); Neutrophils % 83 % (42-76); Platelet Estimate Normal; Total Cells Counted 100
[2020-11-07 07:53] LABS: Anion Gap 8.8 mEq/L (5-15); Carbon Dioxide 46 mmol/L (22.0-30.0)
--- NOTE | 2020-11-07 08:05 | PC.NURSE ---
Parisa ALVARADO MADE AWARE OF PT CO2 VALUE THIS AM.
--- NOTE | 2020-11-07 08:46 | HMH.ACPN2 ---
Internal Medicine - PN: Subj *Date: 11/07/20 *Time: 11:35 Interval history: 60-year-old male patient sitting up in bed respirations are easy and even he denies any chest pain or shortness of breath. Niece is in room at bedside she reports he had a good evening. Oxygen saturation 94% on 5 L per nasal cannula. Niece reports he is on 4 L per nasal cannula at home. Neice reports starting 3 weeks ago he seemed to be more confused and forgetful than usual. Patient is morning is alert and oriented to name only. Niece voices request patient be discharged home if possible, if not they are interested in hospice [facility]. Niece reports he has not received the COVID-19 Vaccine Exam Vital signs and Labs for Last 24 Hours: Temp Pulse Resp BP Pulse Ox 98.1 F 72 18 110/53 L 94 L 11/07/20 04:30 11/07/20 04:30 11/07/20 04:30 11/07/20 04:30 11/07/20 04:30 Laboratory Results - last 24 hr 11/06/20 11:22: Specimen Source Left radial, O2 % 6l, ABG pH 7.31 L, ABG pCO2 103.1 H, ABG pO2 120.4 H, ABG HCO3 50.7 H, ABG Total CO2 53.9 H, ABG O2 Saturation 98, ABG Base Excess 24.5 H, Kiel Test Acceptable 11/06/20 11:32: WBC 23.7 H*, RBC 4.46 L, Hgb 9.5 L, Hct 33.6 L, MCV 75.3 L, MCH 21.3 L, MCHC 28.3 L, RDW 16.5, Plt Count 667 H, MPV 6.8 L, Neut % (Auto) 90.3 H, Lymph % (Auto) 4.7 L, Lee % (Auto) 4.4, Eos % (Auto) 0.1, Baso % (Auto) 0.5, Neut # (Auto) 21.4 H, Lymph # (Auto) 1.1, Lee # (Auto) 1.1 H, Eos # (Auto) 0.0, Baso # (Auto) 0.1, Total Counted 100, Neutrophils % (Manual) 94 H, Lymphocytes % (Manual) 2 L, Monocytes % (Manual) 4, Platelet Estimate Normal, Hypochromasia 3+, Anisocytosis 1+, Microcytosis 2+ 11/06/20 11:32: Sodium 134 L, Potassium 4.5, Chloride 79 L, Carbon Dioxide > 40 H*, Anion Gap 19.5 H, BUN 20, Creatinine 1.00, Estimated Creat Clear 98, Estimated GFR 76, Est GFR ( Amer) 92, Glucose 164 H, Calcium 9.3, Total Bilirubin 0.3, AST 22, ALT 13, Alkaline Phosphatase 89, Troponin I < 0.01, Total Protein 7.1, Albumin 3.7, Globulin 3.4 H, Albumin/Globulin Ratio 1.1, TSH 0.93 11/06/20 11:32: Lactate 1.5 11/06/20 11:32: NT-Pro-B Natriuret Pep 241 H 11/06/20 11:54: SARS-CoV-2 (PCR) Not detected, Influenza A Untype (PCR) Not detected, Influenza Type B (PCR) Not detected 11/06/20 12:45: Urine Color Yellow, Urine Appearance Clear, Urine pH 6.0, Ur Specific Kimper 1.010, Urine Protein Negative, Urine Glucose (UA) Negative, Urine Ketones Negative, Urine Blood Negative, Urine Nitrate Negative, Urine Bilirubin Negative, Urine Urobilinogen 0.2, Ur Leukocyte Esterase Negative, Urine RBC None, Urine WBC None, Ur Squamous Epith Cells 3-5, Urine Bacteria None 11/06/20 14:50: Troponin I < 0.01 11/06/20 17:48: Troponin I < 0.01 11/07/20 05:44: WBC 17.8 H, RBC 3.93 L, Hgb 8.6 L, Hct 29.5 L, MCV 75.1 L, MCH 21.8 L, MCHC 29.0 L, RDW 16.7, Plt Count 581 H, MPV 7.5, Neut % (Auto) 79.3, Lymph % (Auto) 12.0, Lee % (Auto) 6.3, Eos % (Auto) 2.1, Baso % (Auto) 0.4, Neut # (Auto) 14.1 H, Lymph # (Auto) 2.1, Lee # (Auto) 1.1 H, Eos # (Auto) 0.4, Baso # (Auto) 0.1, Total Counted 100, Neutrophils % (Manual) 83 H, Lymphocytes % (Manual) 11, Monocytes % (Manual) 4, Eosinophils % (Manual) 2, Platelet Estimate Normal, Hypochromasia 1+, Anisocytosis 1+ 11/07/20 05:44: Sodium 135 L, Potassium 3.8, Chloride 84 L, Carbon Dioxide 46 H*, Anion Gap 8.8, BUN 21 H, Creatinine 1.20, Estimated Creat Clear 81, Estimated GFR 61, Est GFR ( Amer) 74, Glucose 113 H D, Calcium 8.8, Total Bilirubin 0.2, AST 18, ALT 8 L D, Alkaline Phosphatase 82, Total Protein 6.4, Albumin 3.3 L D, Globulin 3.1, Albumin/Globulin Ratio 1.1 I & O for Last 24 hours: Intake & Output 11/04/20 11/05/20 11/06/20 11/07/20 23:59 23:59 23:59 23:59 Intake Total 120 / 120 1350 / 1350 Output Total 900 / 900 525 / 525 Balance -780 / -780 825 / 825 Weight 198 lb 6 oz 198 lb 5.951 oz - Constitutional no acute distress, chronically ill appearing - *Routine HEENT Exam Head: Present: normoceph
--- NOTE | 2020-11-07 09:36 | CT_ITS ---
PROCEDURE: CT HEAD/BRAIN WO CON CLINICAL INDICATION: Altered mental status COMPARISON: No exams were available for comparison TECHNIQUE: Axial images obtained. All CT scans at the facility use one or more dose reduction, viz: automated exposure control, ma/kV adjustment per patient size (including targeted exams where dose is matched to indication, i.e. head), or iterative reconstruction technique. FINDINGS: There is mild diffuse cerebral atrophy and small-vessel ischemic changes. No cerebral edema mass effect or midline shift. No evidence of acute intracranial or subarachnoid hemorrhage. Some mild mucosal thickening noted in the left sphenoid sinus and bilateral ethmoid sinuses. Skull base is normal. Sclerotic changes to the right mastoid air cells noted. Small amount of fluid noted in the left mastoid air cells which is nonspecific. IMPRESSION: No acute intracranial abnormality. Mild diffuse cerebral atrophy and small-vessel ischemic changes. Mild mucosal thickening in the left sphenoid sinus and bilateral ethmoid sinuses with small amount of nonspecific fluid in the left mastoid air cells. Dictated by: José Antonio Simms 11/07/2020 10:14 José Antonio Simms in [facility] 11/07/2020 10:14
--- NOTE | 2020-11-07 09:54 | HMH.PHAINT ---
MEDICATION RECONCILIATION COMPLETED ON PATIENT USING EXTERNAL FILL HISTORY FROM PHARMACY AND LIST FROM PCP/PULMONOLOGY. -LULU SIMPSON, DEVORAHD
[2020-11-07 10:49] LABS: Ammonia < 9 umol/L (9-30)
--- NOTE | 2020-11-07 15:54 | PC.NURSE ---
PT HAS BEEN ORIENTED TO NAME ONLY, CONFUSED T/O SHIFT, VSS T/O SHIFT, PT STILL REQUIRES 5LNC WITH HUMIDIFICATION FOR O2 SUPPORT, PT HAD BED BATH WITH LINEN CHANGE THIS SHIFT, FAMILY AT BEDSIDE T/O SHIFT AND ASSISTED PT WITH MEALS. [facility]IANSON CATH STILL IN PLACE, NO NEEDS AT THIS TIME, WILL CONTINUE TO MONITOR.
--- NOTE | 2020-11-07 18:43 | PC.NURSE ---
emptied patients catheter at 0630 - had 500 ml
[2020-11-07 23:22] LABS: Vancomycin,Trough 24.2 ug/mL (5.0-10.0)
[2020-11-08] VITALS (36 sets, daily range): BP systolic 97–178; BP diastolic 56–95; PULSE 8–105; RESP 16–26; TEMP 36.2–37.7; O2SAT 87–99; BMI 31.8
--- NOTE | 2020-11-08 | US_ITS ---
PROCEDURE: US THORACENTESIS CLINICAL INDICATION: Right pleural effusion COMPARISON: Chest CT from earlier the same day FINDINGS: Procedure explained to patient's family member and signed informed consent and time-out obtained. Initial ultrasound of the right posterior chest was performed and a small right pleural effusion was identified. Skin over the right posterior chest was cleansed with sterile Betadine and anesthetized with 1 percent Xylocaine. Next a thoracentesis needle covered by a 6 Scottish catheter was advanced into the pleural fluid and there was removal of about 300 cc of clear yellowish pleural fluid. Samples of the fluid were sent to the lab for ordered studies. Patient tolerated procedure well. No immediate complications. IMPRESSION: Ultrasound-guided right thoracentesis as described above. Dictated by: José Antonio Simms MD 11/08/2020 15:01 José Antonio Simms MD in [facility] 11/08/2020 15:01
--- NOTE | 2020-11-08 03:51 | PC.NURSE ---
pt was very restless, agitated, and combative at start of shift. attempted to give oral medication and pt refused and spit medication out. this resulted with more agitation. prn ativan given and pt did settle down. pt has became restless and po prn given. pt did cooperate with staff for administration. turned throughout the night but pt does attempt to get out of bed and has been restless in bed. rosado in place and draining. iv patent and infusing per order. no acute changes since previous assessment. vss. bed alarm set and family at bedside. will continue to monitor.
--- NOTE | 2020-11-08 06:31 | PC.NURSE ---
pt continues to be restless regardless of po prn med.
[2020-11-08 07:10] LABS: Basophils % 0.4 % (0.1-2.0); Eosinophils # 0.4 K/mm3 (0.0-0.4); Eosinophils % 4.2 % (0.1-12.0); Lymphocytes # 1.4 K/mm3 (0.7-4.5); Lymphocytes % 15.2 % (10-50); Mean Corpuscular HGB Conc 27.8 g/dL (31.8-35.4); Mean Corpuscular Hemoglobin 21.3 pg (27.0-31.2); Mean Corpuscular Volume 76.7 fl (80-94); Mean Platelet Volume 8.4 fl (7.4-10.4); Monocytes # 0.9 K/mm3 (0.1-1.0); Monocytes % 9.7 % (1.7-9.3); Neutrophils # 6.3 K/mm3 (1.8-7.8); Neutrophils % 70.6 % (37.0-80.0); Platelet Count 497 K/mm3 (142-424); Red Blood Count 3.66 M/mm3 (4.60-6.20); Red Cell Distribution Width 16.6 % (11.5-17.5)
[2020-11-08 07:14] LABS: Hemoglobin 7.8 g/dL (14.1-18.0)
[2020-11-08 07:16] LABS: Chloride 88 mmol/L (98-107); Potassium 4.2 mmoL/L (3.5-5.1); Sodium 140 mmol/L (136-145)
[2020-11-08 07:19] LABS: Blood Urea Nitrogen 18 mg/dl (9-20); Calcium 8.7 mg/dl (8.4-10.2); Creatinine Clearance Estimated 75 mL/min (50-200); Estimated Glomerular Filt Rate 56 ml/min (>60); GFR (African American) 68 ML/MIN (>60); Glucose 111 mg/dl (74-100)
[2020-11-08 07:38] LABS: Anion Gap 9.2 mEq/L (5-15); Carbon Dioxide 47 mmol/L (22.0-30.0)
--- NOTE | 2020-11-08 07:57 | HMH.PHACONS ---
- Pharmacy Consult Date: 11/08/20 Time: 07:57 Referring provider: DR. SMYTH Reason for Consult:: VANCOMYCIN TROUGH LEVEL Allergies and ADEs:: Allergies Allergy/AdvReac Type Severity Reaction Status Date / Time alfalfa Allergy Intermediate Swelling Verified 10/16/20 17:14 of Lip/Tongue/Throat shellfish derived Allergy Mild Unknown Verified 10/16/20 17:14 allergy reaction Opioids-Meperidine and Allergy itch Verified 10/16/20 17:14 Related Home Medications:: Home Medications Medication Instructions Recorded Confirmed Type magnesium oxide 400 mg PO DAILY #90 cap 06/28/19 11/06/20 Rx Spironolactone 50 mg PO DAILY 04/11/20 11/06/20 History Torsemide 100 mg PO DAILY 04/11/20 11/06/20 History verapamil 180 mg tablet,extended 180 mg PO BID tab 04/11/20 11/06/20 History release albuterol sulfate 2.5 mg INHALATION Q4H PRN #180 ml 06/08/20 11/06/20 Rx albuterol sulfate 90 mcg/actuation 1 inh INHALATION QID PRN #8.5 g 06/08/20 11/06/20 Rx aerosol inhaler ipratropium 0.5 mg-albuterol 3 mg 3 ml INHALATION QID PRN #180 ml 09/07/20 11/06/20 Rx (2.5 mg base)/3 mL nebulization soln ipratropium 20 mcg-albuterol 100 1 puff INHALATION Q6H PRN #4 g 09/07/20 11/06/20 Rx mcg/actuation mist for inhalation sertraline 50 mg tablet 50 mg PO DAILY #30 tab 09/11/20 11/06/20 Rx metoprolol tartrate 50 mg tablet 50 mg PO BID tab 10/12/20 11/06/20 History pravastatin 20 mg tablet 20 mg PO HS tab 10/12/20 11/06/20 History clonazepam 1 mg tablet 1 mg PO QID PRN #120 tab 10/13/20 11/06/20 Rx oxycodone-acetaminophen 5 mg-325 1 tab PO QID PRN #120 tab 10/17/20 11/06/20 Rx mg tablet Fluticasone Propionate [Flovent 1 puff INHALATION BID 11/06/20 11/06/20 History HFA] Glycopyrrolate/Formoterol Fum 2 puff INHALATION BID 11/06/20 11/06/20 History [Bevespi Aerosphere] Montelukast Sodium [Singulair] 10 mg PO HS 11/06/20 11/07/20 History fentaNYL [fentaNYL 75mcg Patch] 75 mcg TD Q72H 11/07/20 11/07/20 History Height: 1.68 m Weight: 89.811 kg Laboratory Results:: Laboratory Results - last 24 hr 11/07/20 10:30: Ammonia < 9 L 11/07/20 22:30: Vancomycin Trough 24.2 H 11/08/20 06:55: WBC 9.0 D, RBC 3.66 L, Hgb 7.8 L*, Hct 28.0 L, MCV 76.7 L, MCH 21.3 L, MCHC 27.8 L, RDW 16.6, Plt Count 497 H, MPV 8.4, Neut % (Auto) 70.6, Lymph % (Auto) 15.2, Walton % (Auto) 9.7 H, Eos % (Auto) 4.2, Baso % (Auto) 0.4, Neut # (Auto) 6.3, Lymph # (Auto) 1.4, Walton # (Auto) 0.9, Eos # (Auto) 0.4, Baso # (Auto) 0.0 11/08/20 06:55: Sodium 140, Potassium 4.2, Chloride 88 L, Carbon Dioxide 47 H*, Anion Gap 9.2, BUN 18, Creatinine 1.30 H, Estimated Creat Clear 75, Estimated GFR 56 L, Est GFR ( Amer) 68, Glucose 111 H, Calcium 8.7 Medical History: Reports:: Anxiety, Congestive Heart Failure, Chronic Obstructive Pulmonary Disease (COPD), Hyperlipidemia, Hypertension Denies:: Cancer, Diabetes Mellitus Type 1, Diabetes Mellitus Type 2, Internal Pacemaker, MRSA, Seizures Assessment and Plan (1) Acute and chronic respiratory failure with hypoxia Status: Acute Category: Medical Code(s): J96.21 - Acute and chronic respiratory failure with hypoxia (2) Community acquired pneumonia Status: Acute Qualifiers: Laterality: right Lung location: lower lobe of lung Qualified Code(s): J18.9 - Pneumonia, unspecified organism Category: Medical Code(s): J18.9 - Pneumonia, unspecified organism (3) Sepsis Status: Acute Qualifiers: Sepsis type: sepsis due to unspecified organism Sepsis acute organ dysfunction status: with acute organ dysfunction Severe sepsis acute organ dysfunction type: acute renal failure Acute renal failure type: unspecified Severe sepsis shock status: without septic shock Qualified Code(s): A41.9 - Sepsis, unspecified organism; R65.20 - Severe sepsis without septic shock; N17.9 - Acute kidney failure, unspecified Category: Medical Code(s): A41.9 - Sepsis, unspecified organism (4
--- NOTE | 2020-11-08 08:27 | HMH.ACPN2 ---
Internal Medicine - PN: Subj *Date: 11/08/20 *Time: 10:57 Interval history: 60-year-old male patient up to bedside commode with niece and sister assisting. Nursing reports a restless night, family reports patient slept yesterday for 6 to 7 hours during daytime. Exam Vital signs and Labs for Last 24 Hours: Temp Pulse Resp BP Pulse Ox 98.5 F 83 18 124/67 99 11/08/20 04:00 11/08/20 04:00 11/08/20 04:00 11/08/20 04:00 11/08/20 04:00 Laboratory Results - last 24 hr 11/07/20 10:30: Ammonia < 9 L 11/07/20 22:30: Vancomycin Trough 24.2 H 11/08/20 06:55: WBC 9.0 D, RBC 3.66 L, Hgb 7.8 L*, Hct 28.0 L, MCV 76.7 L, MCH 21.3 L, MCHC 27.8 L, RDW 16.6, Plt Count 497 H, MPV 8.4, Neut % (Auto) 70.6, Lymph % (Auto) 15.2, Arthur % (Auto) 9.7 H, Eos % (Auto) 4.2, Baso % (Auto) 0.4, Neut # (Auto) 6.3, Lymph # (Auto) 1.4, Arthur # (Auto) 0.9, Eos # (Auto) 0.4, Baso # (Auto) 0.0 11/08/20 06:55: Sodium 140, Potassium 4.2, Chloride 88 L, Carbon Dioxide 47 H*, Anion Gap 9.2, BUN 18, Creatinine 1.30 H, Estimated Creat Clear 75, Estimated GFR 56 L, Est GFR ( Amer) 68, Glucose 111 H, Calcium 8.7 I & O for Last 24 hours: Intake & Output 11/05/20 11/06/20 11/07/20 11/08/20 23:59 23:59 23:59 23:59 Intake Total 120 / 120 2680 / 2860 2110 / 2110 Output Total 900 / 900 825 / 1275 750 / 750 Balance -780 / -780 1855 / 1585 1360 / 1360 Weight 198 lb 6 oz 198 lb 5.951 oz 198 lb Microbiology Reports for the Last 24 Hours: Microbiology 11/06/20 11:32 Blood Blood Culture - Preliminary - Constitutional no acute distress, chronically ill appearing - *Routine HEENT Exam Head: Present: normocephalic Eye: Present: EOMI ENT: Present: mucous membranes moist - *Routine Neck Exam Present: trachea midline. Absent: tracheal deviation - *Routine Respiratory Exam Present: rhonchi, wheezes. Absent: accessory muscle use - *Routine Cardiovascular Exam Present: RRR - *Routine Abdominal Exam Present: soft, normoactive bowel sounds. Absent: tenderness, rigid - *Routine Extremities Exam Present: full ROM, pulses intact. Absent: cyanosis, clubbing, calf tenderness - *Routine Skin Exam Present: intact, dry, warm. Absent: cyanosis, erythema - *Routine Neurological Exam Present: alert, altered mental status, moving all extremities. Absent: oriented X3, motor deficit - Routine Psychiatric Exam Present: unable to assess Assessment and Plan (1) Acute and chronic respiratory failure with hypoxia Status: Acute Category: Medical Code(s): J96.21 - Acute and chronic respiratory failure with hypoxia (2) Community acquired pneumonia Status: Acute Qualifiers: Laterality: right Lung location: lower lobe of lung Qualified Code(s): J18.9 - Pneumonia, unspecified organism Category: Medical Code(s): J18.9 - Pneumonia, unspecified organism (3) Sepsis Status: Acute Qualifiers: Sepsis type: sepsis due to unspecified organism Sepsis acute organ dysfunction status: with acute organ dysfunction Severe sepsis acute organ dysfunction type: acute renal failure Acute renal failure type: unspecified Severe sepsis shock status: without septic shock Qualified Code(s): A41.9 - Sepsis, unspecified organism; R65.20 - Severe sepsis without septic shock; N17.9 - Acute kidney failure, unspecified Category: Medical Code(s): A41.9 - Sepsis, unspecified organism (4) Metastatic colon cancer to liver Status: Acute Category: Medical Code(s): C18.9 - Malignant neoplasm of colon, unspecified; C78.7 - Secondary malignant neoplasm of liver and intrahepatic bile duct (5) Obesity Status: Chronic Category: Medical Code(s): E66.9 - Obesity, unspecified (6) Pneumonia Status: Acute Qualifiers: Pneumonia type: due to unspecified organism Laterality: unspecified laterality Lung location: unspecified part of lung Qualified Code(s): J18.9 - Pneumonia, unspecified organism Category: Med
--- NOTE | 2020-11-08 08:29 | CT_ITS ---
PROCEDURE: CT CHEST WO CON CT abdomen and pelvis without contrast CLINICAL INDICATION: Pneumonia. Pleural effusion. Abdominal pain COMPARISON: CT CT CHEST W CON from 03/15/[address] ABDOMEN PELVIS WO CON from 11/08/2020 TECHNIQUE: Axial images obtained with sagittal and coronal reformats. All CT scans at the facility use one or more dose reduction, viz: automated exposure control, ma/kV adjustment per patient size (including targeted exams where dose is matched to indication, i.e. head), or iterative reconstruction technique. FINDINGS: CT chest without IV contrast shows a small right pleural effusion which appears loculated with masslike area of density in the right base. Extensive consolidation in the right upper lobe noted as well. There is a tiny left pleural effusion with mild left basilar scar versus atelectasis. The area of masslike consolidation in the right lower lobe measures about 8 centimeters x 4.5 centimeters. There is mild calcification of the thoracic aorta without aneurysm. Heart is not enlarged. No pericardial effusion or thickening. Few small non-specific middle mediastinal lymph nodes not pathologically enlarged. Airways are patent. CT abdomen and pelvis shows no discrete focal hepatic or splenic lesion. Gallbladder appears mildly distended. Pancreas and adrenal glands are normal. No renal ureteral or bladder calculi. No CT evidence of obstructive uropathy. Some calcification of the abdominal aorta without aneurysm. No distended large or small bowel or bowel wall thickening. Moderate amount of stool in the colon. No free intraperitoneal air or fluid in the abdomen or pelvis. Hudson catheter noted in the bladder. Few small air bubbles noted in the bladder likely from instrumentation. Prostate gland and seminal vesicles appear normal. No enlarged iliac or inguinal chain lymph nodes. No inguinal or femoral hernia. Moderate diffuse degenerative changes of the lumbar spine are present. No acute bony abnormality. IMPRESSION: Small loculated right pleural effusion with masslike area of density in the right base compatible with pulmonary consolidation versus pulmonary mass. Extensive consolidation in the right upper lobe also noted. Tiny left pleural effusion with mild left basilar atelectasis versus scar. Mild calcification of the thoracic aorta without aneurysm. Mild distention of the gallbladder. No discrete gallstones noted. No free intraperitoneal air or fluid Moderate amount of stool in the colon. Hudson catheter in the bladder. Few small air bubbles in the bladder likely from instrumentation. Some calcification of the abdominal aorta without aneurysm. Dictated by: José Antonio Simms MD 11/08/2020 10:16 José Antonio Simms MD in [facility] 11/08/2020 10:16
[2020-11-08 09:40] LABS: Ammonia 13 umol/L (9-30)
[2020-11-08 10:25] LABS: ABG Base Excess 24.8 mmol/L (-2.4-2.3); ABG HCO3 52.6 mmhg (22.0-26.0); ABG Oxygen Saturation 99 % (90-100); ABG PH 7.22 mmol/L (7.35-7.45); ABG PO2 161.4 mmhg (80-100); ABG TCO2 56.7 mmhg (23-27)
[2020-11-08 10:28] LABS: Allen's Test Acceptable; Oxygen 4L %; Source Left Radial
[2020-11-08 10:29] LABS: ABG PCO2 132.4 mmhg (35.0-45.0)
--- NOTE | 2020-11-08 11:02 | PC.NURSE ---
Pt placed on BIPAP per Dr Gunter, cont pulse ox in place. Sat currently 91%.
--- NOTE | 2020-11-08 11:33 | HMH.PULMCON ---
*Admission Date: 11/06/20 *Reason for consult:: Acute on chronic hypoxic respiratory failure *History of present illness: Mr. Forbes is 60-year-old male with history of severe COPD on inhalers at home also has a diagnosis stage IV colon cancer opted not to get treated presents hospital worsening respiratory failure cough productive phlegm and worsening mentation for the last 1 week and pulmonary was called for further management. [facility] History Medical History: Reports:: Anxiety, Congestive Heart Failure, Chronic Obstructive Pulmonary Disease (COPD), Hyperlipidemia, Hypertension Denies:: Cancer, Diabetes Mellitus Type 1, Diabetes Mellitus Type 2, Internal Pacemaker, MRSA, Seizures *Have you ever received a pneumonia vaccine?: No *Have you received a flu vaccine this season?: No Laterality Cases: Right: Arthroscopy Shoulder Other Surgeries: Yes: Appendectomy, Cardiac Catheterization, Colonoscopy. No: Pacemaker Amputation: No Fractures: No - *Social History Last grade of school completed: High school graduate Smoking Status: Current every day smoker Tobacco Type: cigarettes # Packs/Day (cigarettes): 1 #Yrs smoked (if former smoker): 44 Alcohol Intake: never Alcohol Intake Frequency:: a few times a week Substance Use Type: denies use *Occupational Status:: retired Housing: house Household Members: family *Travel in the last 8 weeks: None - Psychiatric History Pschychiatric History:: Reports:: Anxiety Family Hx:: Asthma, Heart Attack, Hypertension, Coronary Artery Disease, Cancer ROS - Cons Reports fatigue, Reports fever(s) - Card Reports shortness of breath, Reports shortness of breath with activity, Reports leg swelling - Resp Respiratory: Reports dyspnea, Reports dyspnea on exertion, Reports excessive phlegm production, Reports cough with sputum production - GI Gastrointestingal: Reports: dyspepsia Meds Home Medications Medication Instructions Recorded Confirmed Type magnesium oxide 400 mg PO DAILY #90 cap 06/28/19 11/06/20 Rx Spironolactone 50 mg PO DAILY 04/11/20 11/06/20 History Torsemide 100 mg PO DAILY 04/11/20 11/06/20 History verapamil 180 mg tablet,extended 180 mg PO BID tab 04/11/20 11/06/20 History release albuterol sulfate 2.5 mg INHALATION Q4H PRN #180 ml 06/08/20 11/06/20 Rx albuterol sulfate 90 mcg/actuation 1 inh INHALATION QID PRN #8.5 g 06/08/20 11/06/20 Rx aerosol inhaler ipratropium 0.5 mg-albuterol 3 mg 3 ml INHALATION QID PRN #180 ml 09/07/20 11/06/20 Rx (2.5 mg base)/3 mL nebulization soln ipratropium 20 mcg-albuterol 100 1 puff INHALATION Q6H PRN #4 g 09/07/20 11/06/20 Rx mcg/actuation mist for inhalation sertraline 50 mg tablet 50 mg PO DAILY #30 tab 09/11/20 11/06/20 Rx metoprolol tartrate 50 mg tablet 50 mg PO BID tab 10/12/20 11/06/20 History pravastatin 20 mg tablet 20 mg PO HS tab 10/12/20 11/06/20 History clonazepam 1 mg tablet 1 mg PO QID PRN #120 tab 10/13/20 11/06/20 Rx oxycodone-acetaminophen 5 mg-325 1 tab PO QID PRN #120 tab 10/17/20 11/06/20 Rx mg tablet Fluticasone Propionate [Flovent 1 puff INHALATION BID 11/06/20 11/06/20 History HFA] Glycopyrrolate/Formoterol Fum 2 puff INHALATION BID 11/06/20 11/06/20 History [Bevespi Aerosphere] Montelukast Sodium [Singulair] 10 mg PO HS 11/06/20 11/07/20 History fentaNYL [fentaNYL 75mcg Patch] 75 mcg TD Q72H 11/07/20 11/07/20 History Allergies Allergy/AdvReac Type Severity Reaction Status Date / Time alfalfa Allergy Intermediate Swelling Verified 10/16/20 17:14 of Lip/Tongue/Throat shellfish derived Allergy Mild Unknown Verified 10/16/20 17:14 allergy reaction Opioids-Meperidine and Allergy itch Verified 10/16/20 17:14 Related Exam - Constitutional Constitutional:: Present: lethargic. Absent: no acute distress - HENMT Exam HENMT: Present: normocephalic, atraumatic - Eye Exam Eyes:: Present: normal appearance both eyes and related structures - Neck Exam N
--- NOTE | 2020-11-08 12:01 | PC.NURSE ---
lab notified blood was ready. patient currently undergoing a thoracentesis. blood will be obtained once finished and patient is settled
--- NOTE | 2020-11-08 12:26 | XR_ITS ---
PROCEDURE: XR CHEST PORTABLE CLINICAL HISTORY: thoracentesis COMPARISON: CR XR CHEST 2V from 10/03/2020 CR XR CHEST PORTABLE from 10/23/2020 CR XR CHEST PORTABLE from 11/06/[address] CHEST WO CON from 11/08/2020 FINDINGS: Slight improvement in the aeration of the right lung with extensive consolidation in the right base and right apical opacity again noted. No discrete pneumothorax. Some left basilar atelectasis. Right reverse shoulder arthroplasty again noted. IMPRESSION: No discrete pneumothorax status post right thoracentesis. Slight improvement in the aeration of the right lung with extensive consolidation in the right base and right apical opacity again noted. Dictated by: José Antonio Simms MD 11/08/2020 12:47 José Antonio Simms MD in [place] 11/08/2020 12:47
[2020-11-08 13:45] LABS: Appearance,Body Fld. Cloudy; Source, Body Fld. Pleural Fluid
[2020-11-08 13:46] LABS: TNC,Body Fluid 289 cells/uL (< 1000); Volume,Body Fld. 70 mL
[2020-11-08 13:47] LABS: RBC,Body Fluid < 10 cells/uL (< 10 X 10^3)
[2020-11-08 15:05] LABS: ABG Base Excess 16.8 mmol/L (-2.4-2.3); ABG HCO3 42.2 mmhg (22.0-26.0); ABG Oxygen Saturation 88 % (90-100); ABG PH 7.36 mmol/L (7.35-7.45); ABG PO2 58.1 mmhg (80-100); ABG TCO2 44.5 mmhg (23-27)
[2020-11-08 15:06] LABS: Lactate Arterial 1.1 mmol/L (0.4-2.0)
[2020-11-08 15:07] LABS: Allen's Test Acceptable; Oxygen 30 %; PEEP 14/8; Source Right Radial
[2020-11-08 15:12] LABS: ABG PCO2 75.7 mmhg (35.0-45.0)
--- NOTE | 2020-11-08 16:30 | XR_ITS ---
PROCEDURE: XR CHEST PORTABLE CLINICAL HISTORY: Status post thoracentesis COMPARISON: CR XR CHEST PORTABLE from 11/08/2020 FINDINGS: Unchanged right apical opacity and right basilar consolidation with aeration in the right mid lung similar to prior exam. No discrete pneumothorax identified. Mild left basilar atelectasis. Right reverse shoulder arthroplasty again noted. IMPRESSION: No discrete pneumothorax is identified. Unchanged right apical opacity and right basilar consolidation with aeration in the right mid lung similar to prior exam. Dictated by: José Antonio Simms MD 11/08/2020 16:34 José Antonio Simms MD in [place] 11/08/2020 16:34
[2020-11-08 16:33] LABS: Mononuclear WBCs,Body Fluid 98 %; Polynuclear WBC,Body Fluid 2 %
--- NOTE | 2020-11-08 16:33 | PC.NURSE ---
Per Dr. Gunter, change BIPAP to 16/8. RT notified of this and will be to floor to change.
--- NOTE | 2020-11-08 16:42 | PC.NURSE ---
Pt underwent US guided thoracentesis, 300 cc of fluid removed. Tolerated well. Per Dr. Gunter pt was placed on BIPAP around 1100, pt toelrating well. Intermittently pt will become restless and attempt to remove mask. Mits in place for pt safety. PRN meds given per MAR for restelessness/aggitation. Pt currently resting w/ first unit of two of PRBC's being transfused, w/o incident. He is total care, requiring Q2H turning and oral care. Hudson cath to drain @ bedside this shift. Pt incontinent of stool x2 this shift. He is currently sititing up in bed being fed by family. Safety in place. Call [place] w/in reach.
[2020-11-08 23:12] LABS: Hematocrit 34.1 % (42.0-52.0)
[2020-11-08 23:16] LABS: Alanine Aminotransferase 9 U/L (12-78); Albumin Level 3.3 g/dl (3.5-5.0); Albumin/Globulin Ratio 1.1 (1.1-1.8); Alkaline Phosphatase 73 U/L (38-126); Aspartate Amino Transferase 22 U/L (17-59); Bilirubin,Total 0.5 mg/dl (0.2-1.3); Blood Urea Nitrogen 17 mg/dl (9-20); Chloride 93 mmol/L (98-107); Creatinine Clearance Estimated 75 mL/min (50-200); Estimated Glomerular Filt Rate 56 ml/min (>60); GFR (African American) 68 ML/MIN (>60); Globulin 3.1 g/dL (1.3-3.2); Glucose 144 mg/dl (74-100); Lactate Dehydrogenase 139 U/L (313-618); Sodium 138 mmol/L (136-145); Total Protein,Serum 6.4 g/dl (6.3-8.2)
[2020-11-08 23:17] LABS: Hemoglobin 10.7 g/dL (14.1-18.0)
[2020-11-08 23:26] LABS: Carbon Dioxide 42 mmol/L (22.0-30.0)
[2020-11-09] VITALS (24 sets, daily range): BP systolic 107–169; BP diastolic 62–94; PULSE 57–88; RESP 18–26; TEMP 36.6–37.1; O2SAT 91–100; BMI 33.5
--- NOTE | 2020-11-09 05:20 | PC.NURSE ---
patient still restless family refused Ativan states has opposite effect on patient; administered Klonipon & Oxycodone. Patient shows no s/s of acute distress this shift; will continue to monitor.
--- NOTE | 2020-11-09 06:00 | XR_ITS ---
PROCEDURE: XR CHEST PORTABLE CLINICAL HISTORY: PNA COMPARISON: CR XR CHEST PORTABLE from 11/06/[address] CHEST WO CON from 11/08/2020 CR XR CHEST PORTABLE from 11/08/2020 CR XR CHEST PORTABLE from 11/08/2020 FINDINGS: Current exam shows diffuse opacification of the right hemithorax. Mild left basilar atelectasis again noted. Heart is obscured. Right reverse shoulder arthroplasty again noted. IMPRESSION: Current exam shows diffuse opacification of the right hemithorax with mild left basilar atelectasis. Dictated by: José Antonio Simms MD 11/09/2020 08:04 José Antonio Simms MD in [place] 11/09/2020 08:04
[2020-11-09 06:38] LABS: ABG Base Excess 19.7 mmol/L (-2.4-2.3); ABG HCO3 43.7 mmhg (22.0-26.0); ABG Oxygen Saturation 92 % (90-100); ABG PH 7.45 mmol/L (7.35-7.45); ABG PO2 58.3 mmhg (80-100); ABG TCO2 45.6 mmhg (23-27)
[2020-11-09 06:43] LABS: Allen's Test Patient Unable; Oxygen 30 %; PEEP 8; Pressure Support 8; Source Left Radial; Vent Rate 20
[2020-11-09 07:20] LABS: Basophils % 0.2 % (0.1-2.0); Eosinophils % 0.5 % (0.1-12.0); Hematocrit 34.4 % (42.0-52.0); Hemoglobin 10.5 g/dL (14.1-18.0); Lymphocytes # 0.7 K/mm3 (0.7-4.5); Lymphocytes % 9.3 % (10-50); Mean Corpuscular HGB Conc 30.6 g/dL (31.8-35.4); Mean Corpuscular Hemoglobin 23.2 pg (27.0-31.2); Mean Corpuscular Volume 75.8 fl (80-94); Mean Platelet Volume 8.2 fl (7.4-10.4); Monocytes # 0.2 K/mm3 (0.1-1.0); Monocytes % 2.6 % (1.7-9.3); Neutrophils # 6.9 K/mm3 (1.8-7.8); Neutrophils % 87.4 % (37.0-80.0); Platelet Count 570 K/mm3 (142-424); Red Blood Count 4.54 M/mm3 (4.60-6.20); Red Cell Distribution Width 17.3 % (11.5-17.5); White Blood Count 7.9 K/mm3 (4.8-10.8)
[2020-11-09 07:34] LABS: MANUAL DIFFERENTIAL MANUAL DIFFERENTIAL (MANUAL DIFF)
[2020-11-09 07:39] LABS: Chloride 93 mmol/L (98-107); Potassium 3.6 mmoL/L (3.5-5.1); Sodium 140 mmol/L (136-145)
[2020-11-09 07:42] LABS: Blood Urea Nitrogen 19 mg/dl (9-20); Creatinine Clearance Estimated 73 mL/min (50-200); Estimated Glomerular Filt Rate 51 ml/min (>60); GFR (African American) 62 ML/MIN (>60); Glucose 147 mg/dl (74-100)
[2020-11-09 07:49] LABS: Anion Gap 11.6 mEq/L (5-15); Carbon Dioxide 39 mmol/L (22.0-30.0)
--- NOTE | 2020-11-09 08:05 | HMH.ACPN ---
Internal Medicine - PN: Subj *Date: 11/09/20 *Time: 08:05 Exam Vital signs and Labs for Last 24 Hours: Temp Pulse Resp BP Pulse Ox 98.4 F 57 L 21 147/70 H 100 11/09/20 07:35 11/09/20 07:35 11/09/20 07:35 11/09/20 07:35 11/09/20 07:35 Laboratory Results - last 24 hr 11/08/20 08:28: Specimen Source Left radial, O2 % 4l, ABG pH 7.22 L*, ABG pCO2 132.4 H, ABG pO2 161.4 H, ABG HCO3 52.6 H, ABG Total CO2 56.7 H, ABG O2 Saturation 99, ABG Base Excess 24.8 H, Kiel Test Acceptable 11/08/20 09:07: Ammonia 13 11/08/20 09:07: Blood Type Confirm A Positive 11/08/20 10:49: Blood Type A Positive, Antibody Screen Negative, Crossmatch ([facility]) See Detail 11/08/20 12:15: Fluid Source Pleural fluid, Fluid Volume 70, Fluid Appearance Cloudy, Fluid RBC (Auto) < 10, Fld Tot Nucleated Cell 289, Fld Polynuclear WBCs % 2, Fld Mononuclear WBCs % 98 11/08/20 14:45: ABG Lactate 1.1 11/08/20 14:45: Specimen Source Right radial, O2 % 30, ABG pH 7.36, ABG pCO2 75.7 H, ABG pO2 58.1 L, ABG HCO3 42.2 H, ABG Total CO2 44.5 H, ABG O2 Saturation 88 L, ABG Base Excess 16.8 H, Kiel Test Acceptable, PEEP 14/8 11/08/20 22:50: Sodium 138, Potassium 4.0, Chloride 93 L, Carbon Dioxide 42 H*, Anion Gap 7.0, BUN 17, Creatinine 1.30 H, Estimated Creat Clear 75, Estimated GFR 56 L, Est GFR ( Amer) 68, Glucose 144 H D, Calcium 9.0, Total Bilirubin 0.5, AST 22, ALT 9 L, Alkaline Phosphatase 73, Lactate Dehydrogenase 139 L, Total Protein 6.4, Albumin 3.3 L, Globulin 3.1, Albumin/Globulin Ratio 1.1 11/08/20 22:50: Hgb 10.7 L D, Hct 34.1 L 11/09/20 06:00: Specimen Source Left radial, O2 % 30, ABG pH 7.45, ABG pCO2 64.0 H, ABG pO2 58.3 L, ABG HCO3 43.7 H, ABG Total CO2 45.6 H, ABG O2 Saturation 92, ABG Base Excess 19.7 H, Kiel Test Patient unable, Vent Rate 20, PEEP 8 11/09/20 07:05: WBC 7.9, RBC 4.54 L, Hgb 10.5 L, Hct 34.4 L, MCV 75.8 L, MCH 23.2 L, MCHC 30.6 L, RDW 17.3, Plt Count 570 H, MPV 8.2, Neut % (Auto) 87.4 H, Lymph % (Auto) 9.3 L, [place] % (Auto) 2.6, Eos % (Auto) 0.5, Baso % (Auto) 0.2, Neut # (Auto) 6.9, Lymph # (Auto) 0.7, [place] # (Auto) 0.2, Eos # (Auto) 0.0, Baso # (Auto) 0.0 11/09/20 07:05: Sodium 140, Potassium 3.6, Chloride 93 L, Carbon Dioxide 39 H, Anion Gap 11.6, BUN 19, Creatinine 1.40 H, Estimated Creat Clear 73, Estimated GFR 51 L, Est GFR ( Amer) 62, Glucose 147 H, Calcium 9.0 I & O for Last 24 hours: Intake & Output 11/06/20 11/07/20 11/08/20 11/09/20 23:59 23:59 23:59 23:59 Intake Total 120 / 120 2680 / 2860 3100 / 3100 Output Total 900 / 900 825 / 1275 1500 / 1500 500 / 500 Balance -780 / -780 1855 / 1585 1600 / 1600 -500 / -500 Weight 89.981 kg 89.98 kg 90 kg 94.489 kg Microbiology Reports for the Last 24 Hours: Microbiology 11/08/20 12:15 Thoracic Fluid Gram Stain - Final 11/06/20 11:32 Blood Blood Culture - Preliminary NO GROWTH AFTER 48 HOURS 11/06/20 11:32 Blood Blood Culture - Preliminary Gram Positive Cocci Assessment and Plan (1) Acute and chronic respiratory failure with hypoxia Status: Acute Category: Medical Code(s): J96.21 - Acute and chronic respiratory failure with hypoxia (2) Community acquired pneumonia Status: Acute Qualifiers: Laterality: right Lung location: lower lobe of lung Qualified Code(s): J18.9 - Pneumonia, unspecified organism Category: Medical Code(s): J18.9 - Pneumonia, unspecified organism (3) Sepsis Status: Acute Qualifiers: Sepsis type: sepsis due to unspecified organism Sepsis acute organ dysfunction status: with acute organ dysfunction Severe sepsis acute organ dysfunction type: acute renal failure Acute renal failure type: unspecified Severe sepsis shock status: without septic shock Qualified Code(s): A41.9 - Sepsis, unspecified organism; R65.20 - Severe sepsis without septic shock; N17.9 - Acute kidney failure, unspecified Category: Medical Code(s): A41.9 - Sepsis, unspecified
[2020-11-09 08:26] LABS: Lymphocytes % 11 % (10-50); Monocytes % 4 % (2-9); Neutrophils % 85 % (42-76); Platelet Estimate Normal; Total Cells Counted 100
[2020-11-09 08:27] LABS: Hypochromasia 1+
--- NOTE | 2020-11-09 09:14 | PC.NURSE ---
Pt taken off BIPAP @ this time. Dr Gunter @ bedside. Pt placed on 2 L O2 per nasal cannula, he has been on this for about 10 minutes, sat maintaining 97%. Cont pulse ox remains in place. Family @ bedside. Pt resting comfortably. Easily arrousable, confused & unsure as to who he is or where he is. Pt placed on room air @ 0917, per Dr. Gunter he is okay w/ pt sat > 90%.
--- NOTE | 2020-11-09 09:18 | HMH.ACPN2 ---
Internal Medicine - PN: Subj *Date: 11/09/20 *Time: 08:00 Interval history: pt laying in bed on bipap and family at bedside. family states hospice is coming tomorrow to discuss care Exam Vital signs and Labs for Last 24 Hours: Temp Pulse Resp BP Pulse Ox 98.4 F 57 L 21 147/70 H 100 11/09/20 07:35 11/09/20 07:35 11/09/20 07:35 11/09/20 07:35 11/09/20 07:35 Laboratory Results - last 24 hr 11/08/20 08:28: Specimen Source Left radial, O2 % 4l, ABG pH 7.22 L*, ABG pCO2 132.4 H, ABG pO2 161.4 H, ABG HCO3 52.6 H, ABG Total CO2 56.7 H, ABG O2 Saturation 99, ABG Base Excess 24.8 H, Kiel Test Acceptable 11/08/20 09:07: Ammonia 13 11/08/20 09:07: Blood Type Confirm A Positive 11/08/20 10:49: Blood Type A Positive, Antibody Screen Negative, Crossmatch ([facility]) See Detail 11/08/20 12:15: Fluid Source Pleural fluid, Fluid Volume 70, Fluid Appearance Cloudy, Fluid RBC (Auto) < 10, Fld Tot Nucleated Cell 289, Fld Polynuclear WBCs % 2, Fld Mononuclear WBCs % 98 11/08/20 14:45: ABG Lactate 1.1 11/08/20 14:45: Specimen Source Right radial, O2 % 30, ABG pH 7.36, ABG pCO2 75.7 H, ABG pO2 58.1 L, ABG HCO3 42.2 H, ABG Total CO2 44.5 H, ABG O2 Saturation 88 L, ABG Base Excess 16.8 H, Kiel Test Acceptable, PEEP 14/8 11/08/20 22:50: Sodium 138, Potassium 4.0, Chloride 93 L, Carbon Dioxide 42 H*, Anion Gap 7.0, BUN 17, Creatinine 1.30 H, Estimated Creat Clear 75, Estimated GFR 56 L, Est GFR ( Amer) 68, Glucose 144 H D, Calcium 9.0, Total Bilirubin 0.5, AST 22, ALT 9 L, Alkaline Phosphatase 73, Lactate Dehydrogenase 139 L, Total Protein 6.4, Albumin 3.3 L, Globulin 3.1, Albumin/Globulin Ratio 1.1 11/08/20 22:50: Hgb 10.7 L D, Hct 34.1 L 11/09/20 06:00: Specimen Source Left radial, O2 % 30, ABG pH 7.45, ABG pCO2 64.0 H, ABG pO2 58.3 L, ABG HCO3 43.7 H, ABG Total CO2 45.6 H, ABG O2 Saturation 92, ABG Base Excess 19.7 H, Kiel Test Patient unable, Vent Rate 20, PEEP 8 11/09/20 07:05: WBC 7.9, RBC 4.54 L, Hgb 10.5 L, Hct 34.4 L, MCV 75.8 L, MCH 23.2 L, MCHC 30.6 L, RDW 17.3, Plt Count 570 H, MPV 8.2, Neut % (Auto) 87.4 H, Lymph % (Auto) 9.3 L, [place] % (Auto) 2.6, Eos % (Auto) 0.5, Baso % (Auto) 0.2, Neut # (Auto) 6.9, Lymph # (Auto) 0.7, [place] # (Auto) 0.2, Eos # (Auto) 0.0, Baso # (Auto) 0.0, Total Counted 100, Neutrophils % (Manual) 85 H, Lymphocytes % (Manual) 11, Monocytes % (Manual) 4, Platelet Estimate Normal, Hypochromasia 1+ 11/09/20 07:05: Sodium 140, Potassium 3.6, Chloride 93 L, Carbon Dioxide 39 H, Anion Gap 11.6, BUN 19, Creatinine 1.40 H, Estimated Creat Clear 73, Estimated GFR 51 L, Est GFR ( Amer) 62, Glucose 147 H, Calcium 9.0 I & O for Last 24 hours: Intake & Output 11/06/20 11/07/20 11/08/20 11/09/20 11:59 11:59 11:59 11:59 Intake Total 1830 / 1830 3320 / 3320 750 / 750 Output Total 1725 / 1725 750 / 750 1250 / 1250 Balance 105 / 105 2570 / 2570 -500 / -500 Weight 200 lb 198 lb 5.951 oz 198 lb 6.656 oz 208 lb 5 oz Microbiology Reports for the Last 24 Hours: Microbiology 11/06/20 11:32 Blood Blood Culture - Preliminary Staphylococcus epidermidis 11/08/20 12:15 Thoracic Fluid Gram Stain - Final 11/06/20 11:32 Blood Blood Culture - Preliminary NO GROWTH AFTER 48 HOURS - Constitutional no acute distress, chronically ill appearing - *Routine HEENT Exam Head: Present: normocephalic Eye: Present: PERRL ENT: Present: mucous membranes moist - *Routine Neck Exam Present: supple. Absent: lymphadenopathy - *Routine Respiratory Exam Present: wheezes, diminished air movement Comments: on bipap - *Routine Cardiovascular Exam Present: RRR - *Routine Abdominal Exam Present: soft, normoactive bowel sounds. Absent: tenderness - *Routine Extremities Exam Absent: cyanosis, clubbing, edema - *Routine Skin Exam Present: warm. Absent: rash - *Routine Neurological Exam Present: alert confused - Routine Psychiatric Exam Present: luh
--- NOTE | 2020-11-09 10:42 | SW/DCPLANNER ---
I spoke with patients niece (Zoe) this morning regarding plans once ready for discharge. Zoe stated that she has a meeting with [facility] in patients room tomorrow at 9AM. Zoe stated that she is interested in [facility] I spoke with Jo at [facility] whom did confirm that Lida Chang does have a meeting with family tomorrow morning at [facility]. Jo stated that as of now the plan is for patient to possibly go to [facility]. I have faxed all patient information to Jo with Hospice. I have informed Dr Webster and Bautista of plan. I will follow up with MD, patients family and [facility] tomorrow.
--- NOTE | 2020-11-09 10:57 | HMH.PULMPN ---
Internal Medicine - PN: Subj *Date: 11/09/20 *Time: 10:57 Interval history: No acute respiratory events overnight. Patient hypercarbic respiratory failure but however improvement in his mentation. Exam - Constitutional Constitutional:: Absent: no acute distress, comfortable - HENMT Exam HENMT: Present: normocephalic, atraumatic - Eye Exam Eyes:: Present: normal appearance both eyes and related structures - Neck Exam Neck:: Present: normal visual inspection - Respiratory Exam Respiratory:: Present: respiratory distress, decreased breath sounds, crackles. Absent: able to speak in complete sentences - Cardiovascular Exam Cardiac:: Present: S1, S2 - GI Exam GI:: Present: soft - Skin Exam Skin: Present: warm, no rash - Neurological Exam Neurological: Absent: alert, awake, normal cognition, oriented X3 - Extremities Exam Extremities: Present: no cyanosis, no clubbing, edema - Psychiatric Exam Psychiatric: Present: normal affect Assessment and Plan (1) Acute and chronic respiratory failure with hypoxia Status: Acute Category: Medical Code(s): J96.21 - Acute and chronic respiratory failure with hypoxia (2) Community acquired pneumonia Status: Acute Qualifiers: Laterality: right Lung location: lower lobe of lung Qualified Code(s): J18.9 - Pneumonia, unspecified organism Category: Medical Code(s): J18.9 - Pneumonia, unspecified organism (3) Sepsis Status: Acute Qualifiers: Sepsis type: sepsis due to unspecified organism Sepsis acute organ dysfunction status: with acute organ dysfunction Severe sepsis acute organ dysfunction type: acute renal failure Acute renal failure type: unspecified Severe sepsis shock status: without septic shock Qualified Code(s): A41.9 - Sepsis, unspecified organism; R65.20 - Severe sepsis without septic shock; N17.9 - Acute kidney failure, unspecified Category: Medical Code(s): A41.9 - Sepsis, unspecified organism (4) Metastatic colon cancer to liver Status: Acute Category: Medical Code(s): C18.9 - Malignant neoplasm of colon, unspecified; C78.7 - Secondary malignant neoplasm of liver and intrahepatic bile duct (5) Obesity Status: Chronic Category: Medical Code(s): E66.9 - Obesity, unspecified (6) Pneumonia Status: Acute Qualifiers: Pneumonia type: due to unspecified organism Laterality: unspecified laterality Lung location: unspecified part of lung Qualified Code(s): J18.9 - Pneumonia, unspecified organism Category: Medical Code(s): J18.9 - Pneumonia, unspecified organism (7) COPD (chronic obstructive pulmonary disease) Status: Chronic Qualifiers: COPD type: unspecified COPD Qualified Code(s): J44.9 - Chronic obstructive pulmonary disease, unspecified Category: Medical Code(s): J44.9 - Chronic obstructive pulmonary disease, unspecified (8) Dyspnea Status: Chronic Qualifiers: Dyspnea type: shortness of breath Qualified Code(s): R06.02 - Shortness of breath Category: Medical Code(s): R06.00 - Dyspnea, unspecified (9) Shortness of breath Status: Chronic Category: Medical Code(s): R06.02 - Shortness of breath (10) Agitation Status: Chronic Category: Medical Code(s): R45.1 - Restlessness and agitation (11) Leukocytosis Status: Acute Category: Medical Code(s): D72.829 - Elevated white blood cell count, unspecified (12) Hypertensive heart disease Status: Chronic Qualifiers: Heart failure presence: with heart failure Heart failure type: diastolic Heart failure chronicity: chronic Qualified Code(s): I11.0 - Hypertensive heart disease with heart failure; I50.32 - Chronic diastolic (congestive) heart failure Category: Medical Code(s): I11.9 - Hypertensive heart disease without heart failure (13) Obesity Status: Chronic Qualifiers: Obesity type: due to excess calories Obesity classification: adult class 1 (BMI 30 - 34.9)
[2020-11-09 11:43] LABS: Ammonia < 9 umol/L (9-30)
--- NOTE | 2020-11-09 12:52 | XR_ITS ---
PROCEDURE: XR CHEST PORTABLE CLINICAL HISTORY: hypoxia COMPARISON: CT CT CHEST WO CON from 11/08/2020 CR XR CHEST PORTABLE from 11/08/2020 CR XR CHEST PORTABLE from 11/08/2020 CR XR CHEST PORTABLE from 11/09/2020 FINDINGS: Complete opacification of the right hemithorax again noted with slight decrease in the amount of deviation of the trachea to the right. This could be due to lobar collapse with possible endobronchial lesion with mucous plugging, less likely from pleural effusion. Left basilar atelectasis. Heart is obscured by the right lung opacity. No significant overall change otherwise noted compared to prior study. IMPRESSION: Complete opacification of the right hemithorax similar to prior exam with slight decrease in the amount of deviation of the trachea to the right. Dictated by: José Antonio Simms MD 11/09/2020 13:23 José Antonio Simms MD in [place] 11/09/2020 13:23
--- NOTE | 2020-11-09 15:28 | HMH.BRONCH ---
- Procedure: Date: 11/09/20 Patient Date of :: 1960 Procedure Performed:: Bronchoscopy with airway examination Indications:: Hypoxic respiratory failure Performing Provider:: Nichol Gunter MD Referring Provider:: Dr. Webster Sedation:: Conscious sedation. Patient in total received 6 mg of Versed and 50 mcg of fentanyl. Initial 4 mg of Versed and 50 mcg were given in the left upper extremity peripheral IV access which appeared to be infiltrated. He was given the remaining 2 mg of Versed and the newly placed right upper extremity peripheral access Procedure:: Clean therapeutic bronchoscopy advanced to the oral orifice guarded by bite scott. Patient was given 5 mg of 1% lidocaine around the vocal cords and bronchoscopy advance to the ET tube. Airways were examined only up to the segmental bronchi. No evidence of obvious mucous plugging noted. Segmental bronchi grossly appear patent with diffuse erythema noted. The procedure was difficult given patient unable to sedate and being agitated. Findings:: Please see the procedure note Recommendations:: We will obtain a CT chest without contrast Complications:: None Estimated blood obtained (mL): 0
--- NOTE | 2020-11-09 15:32 | CT_ITS ---
PROCEDURE: CT CHEST WO CON CLINICAL INDICATION: hypoxic resp failure.. COMPARISON: CT CT CHEST WO CON from 11/08/2020 Chest radiographs from 11/08/2020 and 11/09/2020 TECHNIQUE: Axial images obtained with sagittal and coronal reformats. All CT scans at the facility use one or more dose reduction, viz: automated exposure control, ma/kV adjustment per patient size (including targeted exams where dose is matched to indication, i.e. head), or iterative reconstruction technique. FINDINGS: Since the prior chest radiographs, there has been some improvement in the aeration of the right lung. There is a small residual loculated right basilar pleural effusion. There is extensive consolidation remaining throughout right lower lobe with areas of patchy consolidation in the right upper lobe. There is mild deviation of the trachea to the right decreased in amount when compared to prior chest radiographs.. No definitive discrete pneumothorax is noted. Heart is mildly enlarged. No pericardial effusion or thickening. Images of the upper abdomen show no focal abnormality. Some diffuse degenerative change of the thoracic spine is noted. IMPRESSION: Some improved aeration of the right lung compared to the prior chest radiographs with small residual loculated right pleural effusion in the right lung base and extensive right basilar consolidation. Patchy areas of consolidation in the right upper lobe as well. Mild deviation of the trachea to the right decreased in amount when compared to the prior chest radiographs. Dictated by: José Antonio Simms MD 11/09/2020 16:39 José Antonio Simms MD in [facility] 11/09/2020 16:39
--- NOTE | 2020-11-09 16:28 | PC.NURSE ---
Consent obtained by phone from next of kin for bronch by Reynaldo Costa,RN and Madison Krishnan, RN. 1500 - Sedation admin per Brenda Jarvis RN as ordered by Dr. Gunter @ bedside (see procedure note) 1513 - Time out performed by Abby Vogt RN @ this time. 1513 - Bronch start time, see VS in eMAR. Pt tolerated procedure well. 1522 - Stop time of bronch. VS monitored per written protocol. Pt down for CT of chest by bed @ 1610. Pt back to floor @ 1635. He is currently resting in bed. Family @ bedside. Currently on 2 L O2/nasal cannula. Sat currently mid 90's. Resp non-labored, easy. HR regular in 60's. Safety in place. Call [place] w/in reach.
[2020-11-10] VITALS (7 sets, daily range): BP systolic 158–171; BP diastolic 83–96; PULSE 70–90; RESP 17–21; TEMP 36.7–36.9; O2SAT 93–97; BMI 33.4
--- NOTE | 2020-11-10 02:54 | PC.NURSE ---
Pt highly combative and very confused this shift. Thus far, patient has not slept. Patient's sister sitting at bedside. Patient on many Abx, (Zosyn, Vanc) all given per order. No trough ordered for today. Patient has been given Klonipin 1 mg X 1 and Percocet 5/325 X 1. Patient is very restless. Patient's saturation level with defined limits. Will continue to monitor for any acute changes.
[2020-11-10 07:00] LABS: Basophils % 0.1 % (0.1-2.0); Chloride 93 mmol/L (98-107); Hematocrit 34.1 % (42.0-52.0); Hemoglobin 10.4 g/dL (14.1-18.0); Lymphocytes # 0.8 K/mm3 (0.7-4.5); Lymphocytes % 6.2 % (10-50); Mean Corpuscular HGB Conc 30.4 g/dL (31.8-35.4); Mean Corpuscular Hemoglobin 23.2 pg (27.0-31.2); Mean Corpuscular Volume 76.5 fl (80-94); Mean Platelet Volume 8.2 fl (7.4-10.4); Monocytes # 0.7 K/mm3 (0.1-1.0); Monocytes % 5.4 % (1.7-9.3); Neutrophils # 11.5 K/mm3 (1.8-7.8); Neutrophils % 88.3 % (37.0-80.0); Platelet Count 569 K/mm3 (142-424); Potassium 3.2 mmoL/L (3.5-5.1); Red Blood Count 4.46 M/mm3 (4.60-6.20); Red Cell Distribution Width 17.9 % (11.5-17.5); Sodium 140 mmol/L (136-145)
[2020-11-10 07:02] LABS: Blood Urea Nitrogen 25 mg/dl (9-20); Creatinine Clearance Estimated 68 mL/min (50-200); Estimated Glomerular Filt Rate 47 ml/min (>60); GFR (African American) 57 ML/MIN (>60)
[2020-11-10 07:03] LABS: Glucose 131 mg/dl (74-100)
[2020-11-10 07:10] LABS: Anion Gap 12.2 mEq/L (5-15); Carbon Dioxide 38 mmol/L (22.0-30.0)
[2020-11-10 07:13] LABS: MANUAL DIFFERENTIAL MANUAL DIFFERENTIAL (MANUAL DIFF)
[2020-11-10 08:24] LABS: Lymphocytes % 7 % (10-50); Monocytes % 5 % (2-9); Neutrophils % 88 % (42-76); Platelet Estimate Slight Increase; RBC Morphology Normal; Total Cells Counted 100
--- NOTE | 2020-11-10 09:38 | SW/DCPLANNER ---
PATIENT WAS APPROVED TO GO TO THE [facility] IN [place]... SISTER IS AT BEDSIDE THIS MORNING AND FAMILY IS IN AGREEMENT OF THE PLAN.... WILL TRANSFER VIA AMBULANCE...
--- NOTE | 2020-11-10 09:56 | HMH.DCSUM ---
General - General Admission date:: 11/06/20 Discharge date: 11/10/20 HPI HPI: Patient is a 60-year-old white male, known to me from the office, and is a very poor historian. He is cared for by 3 family members at home. They relay a history of colon cancer with mets to the liver. By the sister's account this was confirmed on PET scans. He has a history of pulmonary nodules, but these were not related to be malignant. Patient was seen in the office about a month ago for cough in the setting of COPD. He was treated with a course of Rocephin IM, Levaquin p.o. and injectable Depo-Medrol. Chest x-ray from that visit showed an effusion on the right. Was treated in the setting of longstanding COPD with a propensity for pneumonia. Audio check-in's were made from the office with the family regarding Lloyds increased pain and agitation. Over the last few months he has been agitated, sleeping poorly, complaining of diffuse pain. He has been on hydrocodone, then oxycodone, and was on occasion spitting the pills out. Recently placed a transdermal fentanyl with what appeared to be decent results. Patient does remain very confused. Family felt that pain was precluding restful sleep. Patient developed a fever over the weekend, T-max was 102. He was brought to the emergency room for further evaluation. His chest film showed an effusion and possible pneumonia on the right. He had an elevated lactic, elevated white count. He was felt to be septic. Lab work also showed some hypoxia in the setting of chronic ventilatory failure. He is admitted for IV antibiotics, and further evaluation. Hospital Course Hospital Course: Laboratory Tests 11/06/20 11/06/20 11/06/20 11:22 11:32 11:32 WBC 23.7 H* RBC 4.46 L Hgb 9.5 L Hct 33.6 L MCV 75.3 L MCH 21.3 L MCHC 28.3 L RDW 16.5 Plt Count 667 H MPV 6.8 L Neut % (Auto) 90.3 H Lymph % (Auto) 4.7 L [place] % (Auto) 4.4 Eos % (Auto) 0.1 Baso % (Auto) 0.5 Neut # (Auto) 21.4 H Lymph # (Auto) 1.1 [place] # (Auto) 1.1 H Eos # (Auto) 0.0 Baso # (Auto) 0.1 Total Counted 100 Neutrophils % (Manual) 94 H Lymphocytes % (Manual) 2 L Monocytes % (Manual) 4 Eosinophils % (Manual) Platelet Estimate Normal RBC Morphology Hypochromasia 3+ Anisocytosis 1+ Microcytosis 2+ Specimen Source Left radial O2 % 6l ABG pH 7.31 L ABG pCO2 103.1 H ABG pO2 120.4 H ABG HCO3 50.7 H ABG Total CO2 53.9 H ABG O2 Saturation 98 ABG Base Excess 24.5 H Kiel Test Acceptable ABG Lactate Vent Rate PEEP Sodium 134 L Potassium 4.5 Chloride 79 L Carbon Dioxide > 40 H* Anion Gap 19.5 H BUN 20 Creatinine 1.00 Estimated Creat Clear 98 Estimated GFR 76 Est GFR ( Amer) 92 Glucose 164 H Lactate Calcium 9.3 Total Bilirubin 0.3 AST 22 ALT 13 Alkaline Phosphatase 89 Ammonia Lactate Dehydrogenase Troponin I < 0.01 NT-Pro-B Natriuret Pep Total Protein 7.1 Albumin 3.7 Globulin 3.4 H Albumin/Globulin Ratio 1.1 TSH 0.93 Urine Color Urine Appearance Urine pH Ur Specific [place] Urine Protein Urine Glucose (UA) Urine Ketones Urine Blood Urine Nitrate Urine Bilirubin Urine Urobilinogen Ur Leukocyte Esterase Urine RBC Urine WBC Ur Squamous Epith Cells Urine Bacteria Fluid Source Fluid Volume Fluid Appearance Fluid RBC (Auto) Fld Tot Nucleated Cell Fld Polynuclear WBCs % Fld Mononuclear WBCs % Vancomycin Trough SARS-CoV-2 (PCR) Influenza A Untype (PCR) Influenza Type B (PCR) Blood Type Blood Type Confirm Antibody Screen Crossmatch ([facility]) 11/06/20 11/06/20 11/06/20 11:32 11:32 11:54 WBC RBC Hgb Hct MCV MCH MCHC RDW Plt Count MPV Neut % (Auto) Lymph % (Auto)
--- NOTE | 2020-11-10 10:34 | HMH.PULMPN ---
Internal Medicine - PN: Subj *Date: 11/10/20 *Time: 10:34 Interval history: No acute respiratory vents overnight. Patient remains on nasal cannula. He remains altered and agitated. Exam - Constitutional Constitutional:: Present: lethargic. Absent: no acute distress, comfortable - HENMT Exam HENMT: Present: normocephalic, atraumatic - Eye Exam Eyes:: Present: normal appearance both eyes and related structures - Neck Exam Neck:: Present: normal visual inspection - Respiratory Exam Respiratory:: Present: able to speak in complete sentences, bibailar crackels heard, no respiratory distress, crackles - Cardiovascular Exam Cardiac:: Present: S1, S2 - GI Exam GI:: Present: soft - Skin Exam Skin: Present: warm, no rash - Neurological Exam Neurological: Present: awake. Absent: alert, normal cognition, oriented X3 Agitated - Extremities Exam Extremities: Present: no cyanosis, no clubbing, edema Assessment and Plan (1) Acute and chronic respiratory failure with hypoxia Status: Acute Category: Medical Code(s): J96.21 - Acute and chronic respiratory failure with hypoxia (2) Community acquired pneumonia Status: Acute Qualifiers: Laterality: right Lung location: lower lobe of lung Qualified Code(s): J18.9 - Pneumonia, unspecified organism Category: Medical Code(s): J18.9 - Pneumonia, unspecified organism (3) Sepsis Status: Acute Qualifiers: Sepsis type: sepsis due to unspecified organism Sepsis acute organ dysfunction status: with acute organ dysfunction Severe sepsis acute organ dysfunction type: acute renal failure Acute renal failure type: unspecified Severe sepsis shock status: without septic shock Qualified Code(s): A41.9 - Sepsis, unspecified organism; R65.20 - Severe sepsis without septic shock; N17.9 - Acute kidney failure, unspecified Category: Medical Code(s): A41.9 - Sepsis, unspecified organism (4) Metastatic colon cancer to liver Status: Acute Category: Medical Code(s): C18.9 - Malignant neoplasm of colon, unspecified; C78.7 - Secondary malignant neoplasm of liver and intrahepatic bile duct (5) Obesity Status: Chronic Category: Medical Code(s): E66.9 - Obesity, unspecified (6) Pneumonia Status: Acute Qualifiers: Pneumonia type: due to unspecified organism Laterality: unspecified laterality Lung location: unspecified part of lung Qualified Code(s): J18.9 - Pneumonia, unspecified organism Category: Medical Code(s): J18.9 - Pneumonia, unspecified organism (7) COPD (chronic obstructive pulmonary disease) Status: Chronic Qualifiers: COPD type: unspecified COPD Qualified Code(s): J44.9 - Chronic obstructive pulmonary disease, unspecified Category: Medical Code(s): J44.9 - Chronic obstructive pulmonary disease, unspecified (8) Dyspnea Status: Chronic Qualifiers: Dyspnea type: shortness of breath Qualified Code(s): R06.02 - Shortness of breath Category: Medical Code(s): R06.00 - Dyspnea, unspecified (9) Shortness of breath Status: Chronic Category: Medical Code(s): R06.02 - Shortness of breath (10) Agitation Status: Chronic Category: Medical Code(s): R45.1 - Restlessness and agitation (11) Leukocytosis Status: Acute Category: Medical Code(s): D72.829 - Elevated white blood cell count, unspecified (12) Hypertensive heart disease Status: Chronic Qualifiers: Heart failure presence: with heart failure Heart failure type: diastolic Heart failure chronicity: chronic Qualified Code(s): I11.0 - Hypertensive heart disease with heart failure; I50.32 - Chronic diastolic (congestive) heart failure Category: Medical Code(s): I11.9 - Hypertensive heart disease without heart failure (13) Obesity Status: Chronic Qualifiers: Obesity type: due to excess calories Obesity classification: adult class 1 (BMI 30 - 34.9) Serious obesity comorbidity presenc
[2020-11-10 12:23] LABS: Albumin, Body Fluid 1.7 g/dL (Not Estab.); Glucose, Body Fluid 97 mg/dL (.); LD, Body Fluid 77 IU/L (.); Protein, Body Fluid 2.9 g/dL (.)
[2020-11-13 02:04] LABS: pH, Body Fluid 7.9 (Not Estab.)
== END 2020-11-10 15:30 | disposition hospice, inpatient (51) | DRG 871 ==
LOC: ER 13:03 → 2ND 13:35
PROVIDERS: Internal Medicine Pulmonary Disease; Nurse Practitioner Family; Admitting Provider Family Medicine; Emergency Provider Emergency Medicine; PCP Emergency Medicine; Visit Provider Family Medicine
PROC: 0BJ08ZZ Inspection of Tracheobronchial Tree, Via Natural or Artificial Opening Endoscopic (ICD-10-PCS; principal; 2020-11-09 14:00)
DX: A41.9 Sepsis, unspecified organism (principal); J18.9 Pneumonia, unspecified organism; J96.21 Acute and chronic respiratory failure with hypoxia; J96.22 Acute and chronic respiratory failure with hypercapnia; C18.9 Malignant neoplasm of colon, unspecified; C78.7 Secondary malignant neoplasm of liver and intrahepatic bile duct; J44.0 Chronic obstructive pulmonary disease with (acute) lower respiratory infection; N17.9 Acute kidney failure, unspecified; I13.0 Hypertensive heart and chronic kidney disease with heart failure and stage 1 through stage 4 chronic kidney disease, or unspecified chronic kidney disease; R65.20 Severe sepsis without septic shock; I50.9 Heart failure, unspecified; D63.1 Anemia in chronic kidney disease; N18.31 Chronic kidney disease, stage 3a; E66.9 Obesity, unspecified; Z68.34 Body mass index [BMI] 34.0-34.9, adult; Z87.891 Personal history of nicotine dependence; I27.20 Pulmonary hypertension, unspecified; F41.9 Anxiety disorder, unspecified; E78.5 Hyperlipidemia, unspecified
CPT/HCPCS: 31622; 32554; 32555; 36415; 70450; 71045; 71250; 74176; 80048; 80053; 80202; 81001; 82042; 82140; 82803; 82945; 83605; 83615; 83880; 83986; 84155; 84443; 84484; 85007; 85014; 85018; 85025; 86850; 87040; 87070; 87077; 87081; 87186; 87205; 88112; 88305; 89051; 93005; 94640; 94660; 94760; 94761; 96365; 96367; 99284; J2543; J3370; P9016; U0003